=== PATIENT | female | born 1955 | race African-American/Black ===

== ENCOUNTER 2016-12-31 16:30 | Emergency (ER) | payer OTHER ==
[~2016-12-31 16:30] MED LIST: ACYC400T PO; ALPH0.15 EACH EYE; AMLO5 PO; ESZO2 PO; HYDR2.5%T PR; LATA0.00 EACH EYE; MECL12.574 PO; NITR.4 SL; TIMO0.5S29 EACH EYE
[2016-12-31 16:32] VITALS: BP 168/80; PULSE 68; RESP 28; TEMP 98.2; O2SAT 100
[2016-12-31] MEDS ORDERED: ACYC400T PO (16:50)
[2016-12-31] MEDS ORDERED: AMLO5TAB2 PO (16:50)
[2016-12-31] MEDS ORDERED: LATA0.002 EACH EYE (16:50)
[2016-12-31] MEDS ORDERED: NITR0.4S SL (16:50)
[2016-12-31] MEDS ORDERED: ESZO1TAB PO (16:50)
[2016-12-31] MEDS ORDERED: MECL12.574 PO (16:50)
[2016-12-31] MEDS ORDERED: TIMO0.5S30 EACH EYE (16:50)
[2016-12-31] MEDS ORDERED: BRIM.15%O EACH EYE (16:50)
[2016-12-31] MEDS ORDERED: SODIUM CHLORIDE 0.9% FLUSH 10 ML FLUSH IVF PRN (17:00)
[2016-12-31] MEDS ORDERED: cloNIDine HCL 0.2 MG TAB PO ONE (17:00)
--- NOTE | 2016-12-31 17:01 | PD ---
HPI Chief Complaint: Cardiac Complaint Time Seen by Provider: 16:45 Travel History International Travel<30 days: No Contact w/Intl Traveler<30days: No Traveled to known affect area: No History of Present Illness HPI The patient was seen and examined in the presence of the nurse. She complains of chest pain. Location is upper sternum. Feels like a pressure. She's had this pain on and off for over a year. She's been here several times for it. She had a clean catheterization 14 months ago. Severity is moderate. No alleviating factors. Duration of the spell 2 days PFSH Past Medical History Anemia: Yes Arthritis: Yes (osterarthritis) Asthma: Yes Autoimmune Disease: No Blood Disorders: No Anxiety: Yes Depression: Yes Heart Rhythm Problems: Yes (MURMUR) Cancer: No Cardiac Catheterization: No Cardiovascular Problems: Yes (angina) High Cholesterol: No Chest Pain: Yes Congestive Heart Failure: No COPD: No Cerebrovascular Accident: No Diabetes: No Diminished Hearing: No Endocrine: No Gastrointestinal Disorders: Yes (CHOLECYSTITIS) GERD: Yes Genitourinary: No Hiatal Hernia: No Hypertension: Yes Immune Disorder: No Implanted Vascular Access Dvce: No Musculoskeletal: Yes Neurologic: Yes Psychiatric: Yes Reproductive: Yes Respiratory: Yes Immunizations Current: Yes Migraines: Yes Pancreatitis: Yes (1999) Seizures: No Sleep Apnea: No Thyroid Disease: No Ulcer: Yes Tetanus Vaccination: < 5 Years Influenza Vaccination: Yes Menopausal: Yes : 4 Para: 2 Miscarriage: 0 : 2 Past Surgical History Abdominal Surgery: Yes (hernia repair) Body Medical Devices: DENIES Cardiac Surgery: No Section: Yes Coronary Artery Bypass Graft: No Ear Surgery: No Endocrine Surgery: No Eye Surgery: No Genitourinary Surgery: No Gynecologic Surgery: Yes (partial hysterectomy, c section) Hysterectomy: Yes Neurologic Surgery: No Oral Surgery: No Thoracic Surgery: No Other Surgery: Yes (BENIGN TUMOR REMOVED FROM BREAST) Family History Family Myocardial Infarction: Yes (MOTHER & FATHER) Social History Alcohol Use: No Tobacco Use: No Substance Use: No Allergies-Medications (Allergen,Severity, Reaction): Coded Allergies: Naproxen (Verified Allergy, Severe, NAUSEA, 07/06/16) Reported Meds & Prescriptions Reported Meds & Active Scripts Active Reported Meclizine (Meclizine HCl) 12.5 Mg Tab 12.5 Mg PO DIRECTED PRN Timolol Opth Drops 0.5 % Soln 1 Drop EACH EYE BID Latanoprost Opth Drops (Latanoprost) 0.005% Drops 1 Drop EACH EYE HS Refrigerate until opened. Alphagan P Opth Drops (Brimonidine Tartrate) Unknown Strength Soln Unknown Dose EACH EYE TID Lunesta (Eszopiclone) 2 Mg Tab 2 Mg PO HS PRN Acyclovir 400 Mg Tab 400 Mg PO BID Amlodipine (Amlodipine Besylate) 5 Mg Tab 5 Mg PO DAILY Nitrostat SL (Nitroglycerin) 0.4 Mg Subl 0.4 Mg SL DIRECTED PRN 1 tablet under the tongue as needed for chest pain. Repeat every 5 minutes for a total of 3 DOSES or call 911 if NO relief. Review of Systems General / Constitutional: No: Fever Eyes: No: Visual changes HENT: No: Headaches Cardiovascular: Positive: Chest Pain or Discomfort Respiratory: No: Shortness of Breath Gastrointestinal: No: Abdominal Pain Genitourinary: No: Dysuria Musculoskeletal: No: Pain Skin: No Rash Neurologic: No: Weakness Psychiatric: No: Depression Endocrine: No: Polydipsia Hematologic/Lymphatic: No: Easy Bruising Physical Exam Narrative GENERAL: Well-nourished, well-developed patient in no apparent distress. SKIN: Warm and dry. HEAD: Atraumatic. Normocephalic. EYES: Pupils equal and round. No scleral icterus. No injection or drainage. ENT: No nasal bleeding or discharge. Mucous membranes pink and moist. NECK: Trachea midline. No JVD. CARDIOVASCULAR: Regular rate and rhythm. No murmur appreciated. RESPIRATORY: No accessory muscle use. Clear to auscultation. Breath sounds equal bilaterally. GASTROINTESTINAL: Abdomen soft, non-tender, nondistended. Hepatic and splenic margins not palpable. MUSCULOSKELETAL: No obvious deformities. No clubbing. No cyanosis. No edema. NEUROLOGICAL: Awake and alert. No obvious cranial nerve deficits. Motor grossly within normal limits. Normal speech. PSYCHIATRIC: Appropriate mood and affect; insight and judgment normal. Data Data Last Documented VS Vital Signs Date Time Temp Pulse Resp B/P Pulse Ox O2 Delivery O2 Flow Rate FiO2 12/31/16 18:30 64 18 116/66 100 Room Air 12/31/16 16:32 98.2 Orders Basic Metabolic Panel (Bmp) (12/31/16 16:53) Ckmb (Isoenzyme) Profile (12/31/16 16:53) Complete Blood Count With Diff (12/31/16 16:53) Troponin I (12/31/16 16:53) Ecg Monitoring (12/31/16 16:53) Iv Access Insert/Monitor (12/31/16 16:53) Oximetry (12/31/16 16:53) Sodium Chloride 0.9% Flush (Ns Flush) (12/31/16 17:00) Clonidine (Catapres) (12/31/16 17:00) CKMB (12/31/16 17:03) CKMB% (12/31/16 17:03) Labs Laboratory Tests Test 12/31/16 17:03 White Blood Count 5.9 TH/MM3 Red Blood Count 3.73 MIL/MM3 Hemoglobin 11.7 GM/DL Hematocrit 34.0 % Mean Corpuscular Volume 91.2 FL Mean Corpuscular Hemoglobin 31.5 PG Mean Corpuscular Hemoglobin 34.6 % Concent Red Cell Distribution Width 13.8 % Platelet Count 291 TH/MM3 Mean Platelet Volume 8.0 FL Neutrophils (%) (Auto) 40.5 % Lymphocytes (%) (Auto) 46.0 % Monocytes (%) (Auto) 9.5 % Eosinophils (%) (Auto) 2.7 % Basophils (%) (Auto) 1.3 % Neutrophils # (Auto) 2.4 TH/MM3 Lymphocytes # (Auto) 2.7 TH/MM3 Monocytes # (Auto) 0.6 TH/MM3 Eosinophils # (Auto) 0.2 TH/MM3 Basophils # (Auto) 0.1 TH/MM3 CBC Comment DIFF FINAL Differential Comment Sodium Level 142 MEQ/L Potassium Level 3.3 MEQ/L Chloride Level 109 MEQ/L Carbon Dioxide Level 25.3 MEQ/L Anion Gap 8 MEQ/L Blood Urea Nitrogen 14 MG/DL Creatinine 1.39 MG/DL Estimat Glomerular Filtration 46 ML/MIN Rate Random Glucose 95 MG/DL Calcium Level 9.6 MG/DL Total Creatine Kinase 152 U/L Creatine Kinase MB LESS THAN 0.5 NG/ML Troponin I 0.02 NG/ML MDM Medical Decision Making Medical Screen Exam Complete: Yes Emergency Medical Condition: Yes Medical Record Reviewed: Yes Differential Diagnosis Differential diagnosis includes KS, angina, pericarditis, pleurisy, GERD, anxiety. Narrative Course I have reviewed the patient's electronic medical record. I saw this patient in June 2016 for the same complaint. I reviewed her heart catheterization from October 2015 which showed no coronary artery disease IV placed I reviewed the EKG which is normal Extended cardiac monitoring shows sinus rhythm without ectopy CBC is normal Metabolic profile is normal CK is normal Troponin is normal I gave her dose of clonidine for accelerated hypertension. That was thought to be the cause of her chest pain by film sound engineer who did the catheterization. On recheck blood pressure 116/66 Workup here is negative Had recent negative catheterization This is a chronic problem going on for least a year I don't feel she requires inpatient stay at this time. She should discuss it with her physician and I have advised her to call Monday and do that Diagnosis Primary Impression: Non-cardiac chest pain Additional Impression: Chronic chest pain Additional Instructions: The patient was advised to follow up with their physician and return if they worsen. Med/Other Pt SpecificInfo: Other Disposition: DISCHARGE HOME Condition: Stable Arnulfo De Anda MD Dec 31, 2016 17:01
[2016-12-31 17:12] LABS: AUTOMATED NEUTROPHIL # 2.4 TH/MM3 (1.8-7.7); BASOPHIL # 0.1 TH/MM3 (0-0.2); BASOPHIL % 1.3 % (0.0-2.0); EOSINOPHIL # 0.2 TH/MM3 (0-0.4); EOSINOPHIL % 2.7 % (0.0-4.0); HEMO FLAGS DIFF FINAL; LYMPHOCYTE # 2.7 TH/MM3 (1.0-4.8); MEAN CELL VOLUME 91.2 FL (80.0-100.0); MEAN CORPUSCULAR HEMOGLOBIN 31.5 PG (27.0-34.0); MEAN CORPUSCULAR HGB CONC 34.6 % (32.0-36.0); MONO % 9.5 % (0.0-8.0); NEUT % 40.5 % (16.0-70.0); PLATELET COUNT 291 TH/MM3 (150-450); RED BLOOD COUNT 3.73 MIL/MM3 (4.00-5.30); RED CELL DISTRIBUTION WIDTH 13.8 % (11.6-17.2); WHITE BLOOD COUNT 5.9 TH/MM3 (4.0-11.0)
[2016-12-31 17:19] VITALS: RESP 16; O2SAT 97
[2016-12-31 17:30] VITALS: BP 154/77; PULSE 74; RESP 16; O2SAT 100
[2016-12-31 17:40] LABS: ANION GAP 8 MEQ/L (5-15); BICARBONATE 25.3 MEQ/L (21.0-32.0); BLOOD UREA NITROGEN 14 MG/DL (7-18); CHLORIDE 109 MEQ/L (98-107); GLOMERULAR FILTRATION RATE 46 ML/MIN (>89); POTASSIUM 3.3 MEQ/L (3.5-5.1); SODIUM (NA) 142 MEQ/L (136-145)
[2016-12-31 17:43] LABS: CREATINE KINASE 152 U/L (26-192)
[2016-12-31 17:56] LABS: CKMB LESS THAN 0.5 NG/ML (0.5-3.6)
[2016-12-31 18:30] VITALS: BP 116/66; PULSE 64; RESP 18; O2SAT 100
--- NOTE | 2017-01-01 15:01 | EKG ---
Date Performed: 12/31/2016 Time Performed: 16:47:42 PTAGE: 61 years EKG: Sinus rhythm Since previous tracing, no significant change noted NORMAL ECG PREVIOUS TRACING : 07/06/2016 14.24 DOCTOR: Yann Kim Interpretating Date/Time 01/01/2017 15:01:51
== END 2016-12-31 19:21 | disposition home or self-care (01) ==
LOC: NEPE 16:30
DX: R07.89 Other chest pain (principal); G89.29 Other chronic pain; I10 Essential (primary) hypertension; Z86.2 Personal history of diseases of the blood and blood-forming organs and certain disorders involving the immune mechanism; Z87.39 Personal history of other diseases of the musculoskeletal system and connective tissue; Z87.09 Personal history of other diseases of the respiratory system; Z86.59 Personal history of other mental and behavioral disorders; Z86.79 Personal history of other diseases of the circulatory system; Z87.19 Personal history of other diseases of the digestive system; Z86.69 Personal history of other diseases of the nervous system and sense organs
CPT/HCPCS: 80048; 82550; 82552; 84484; 85025; 93005; 99284

== ENCOUNTER 2017-07-20 14:36 | Emergency (ER) | payer SELFPAY ==
[~2017-07-20] VITALS: Ht 167.6 cm; Wt 55.0 kg
[~2017-07-20 14:36] MED LIST changes: -ALPH0.15 EACH EYE; -AMLO5 PO; +AMLO5TAB2 PO; +BRIM.15%O EACH EYE; +ESZO1TAB PO; -ESZO2 PO; -HYDR2.5%T PR; -LATA0.00 EACH EYE; +LATA0.002 EACH EYE; -NITR.4 SL; +NITR0.4S SL; -TIMO0.5S29 EACH EYE; +TIMO0.5S30 EACH EYE
[2017-07-20 14:47] VITALS: BP 143/66; PULSE 56; RESP 17; TEMP 97.8; O2SAT 100
[2017-07-20] MEDS ORDERED: ASPIRIN 81 MG CHEW TAB PO ONE (15:15)
[2017-07-20] MEDS ORDERED: SODIUM CHLORIDE 0.9% FLUSH 10 ML FLUSH IVF PRN (15:15)
--- NOTE | 2017-07-20 15:16 | PD ---
HPI Chief Complaint: Chest PAin Time Seen by Provider: 14:57 Travel History International Travel<30 days: No Contact w/Intl Traveler<30days: No History of Present Illness HPI 61-year-old female tearful for chest pain. She states that the chest pain started 2 hours ago after an episode of crying and complaining of being "nervous wreck". She describes her pain as midsternal heavy, aching and sharp and rated 9 out of 10 radiating to her right shoulder and right neck. States her chest pain worsens with inspiration nothing else relieves her discomfort. She has not taken aspirin today. She states that she took 2 Ambien just to "fall asleep". She tells me that she does not want to wake up after taking these Ambien. She denies any chronic cardiac or pulmonary additions. She denies recent travel, surgery, history of cancer, shortness of breath, back pain, nausea, vomiting, diarrhea, abdominal pain, leg pain, illicit drug use. She states that she has had an episode like this before and it was just before a suicide attempt. PFSH Past Medical History Anemia: Yes Arthritis: Yes (osterarthritis) Asthma: Yes Autoimmune Disease: No Blood Disorders: No Anxiety: Yes Depression: Yes Heart Rhythm Problems: Yes (MURMUR) Cancer: No Cardiac Catheterization: No Cardiovascular Problems: Yes (angina) High Cholesterol: No Chest Pain: Yes Congestive Heart Failure: No COPD: No Cerebrovascular Accident: No Diabetes: No Diminished Hearing: No Endocrine: No Gastrointestinal Disorders: Yes (CHOLECYSTITIS) GERD: Yes Genitourinary: No Hiatal Hernia: No Hypertension: Yes Immune Disorder: No Implanted Vascular Access Dvce: No Musculoskeletal: Yes Neurologic: Yes Psychiatric: Yes Reproductive: Yes Respiratory: Yes Immunizations Current: Yes Migraines: Yes Pancreatitis: Yes (1999) Seizures: No Sleep Apnea: No Thyroid Disease: No Ulcer: Yes Menopausal: Yes : 4 Para: 2 Miscarriage: 0 : 2 Past Surgical History Abdominal Surgery: Yes (hernia repair) Body Medical Devices: DENIES Cardiac Surgery: No Section: Yes Coronary Artery Bypass Graft: No Ear Surgery: No Endocrine Surgery: No Eye Surgery: No Genitourinary Surgery: No Gynecologic Surgery: Yes (partial hysterectomy, c section) Hysterectomy: Yes Neurologic Surgery: No Oral Surgery: No Thoracic Surgery: No Other Surgery: Yes (BENIGN TUMOR REMOVED FROM BREAST) Social History Alcohol Use: No Tobacco Use: No Substance Use: No Allergies-Medications (Allergen,Severity, Reaction): Coded Allergies: naproxen (Verified Adverse Reaction, Severe, NAUSEA, 07/20/17) Reported Meds & Prescriptions Reported Meds & Active Scripts Active Reported Meclizine (Meclizine HCl) 12.5 Mg Tab 12.5 Mg PO DIRECTED PRN Timolol Opth Drops 0.5 % Soln 1 Drop EACH EYE BID Latanoprost Opth Drops (Latanoprost) 0.005% Drops 1 Drop EACH EYE HS Refrigerate until opened. Alphagan P Opth Drops (Brimonidine Tartrate) Unknown Strength Soln 1 Drop EACH EYE TID Acyclovir 400 Mg Tab 400 Mg PO BID Amlodipine (Amlodipine Besylate) 5 Mg Tab 5 Mg PO DAILY Nitrostat SL (Nitroglycerin) 0.4 Mg Subl 0.4 Mg SL DIRECTED PRN 1 tablet under the tongue as needed for chest pain. Repeat every 5 minutes for a total of 3 DOSES or call 911 if NO relief. Review of Systems Except as stated in HPI: all other systems reviewed are Neg Cardiovascular: Positive: Chest Pain or Discomfort Psychiatric: Positive: Depression, Suicidal Ideations Physical Exam Narrative GENERAL: Well-developed well-nourished in mild distress, tearful SKIN: Focused skin assessment warm/dry. HEAD: Atraumatic. Normocephalic. EYES: Pupils equal and round. No scleral icterus. No injection or drainage. ENT: No nasal bleeding or discharge. Mucous membranes pink and moist. NECK: Trachea midline. No JVD. CARDIOVASCULAR: Regular rate and rhythm. No murmur appreciated. RESPIRATORY: No accessory muscle use. Clear to auscultation. Breath sounds equal bilaterally. GASTROINTESTINAL: Abdomen soft, non-tender, nondistended. Hepatic and splenic margins not palpable. MUSCULOSKELETAL: No obvious deformities. No clubbing. No cyanosis. No edema. Negative Homans sign bilaterally lower extremities NEUROLOGICAL: Awake and alert. No obvious cranial nerve deficits. Motor grossly within normal limits. Normal speech. PSYCHIATRIC: Tearful, depressed appearing Data Data Last Documented VS Vital Signs Date Time Temp Pulse Resp B/P (MAP) Pulse Ox O2 Delivery O2 Flow Rate FiO2 07/21/17 15:14 98.7 56 18 140/66 (90) 07/21/17 06:00 97 Room Air Orders Orders Electrocardiogram (07/20/17 ) Basic Metabolic Panel (Bmp) (07/20/17 15:12) B-Type Natriuretic Peptide (07/20/17 15:12) Ckmb (Isoenzyme) Profile (07/20/17 15:12) Complete Blood Count With Diff (07/20/17 15:12) Magnesium (Mg) (07/20/17 15:12) Prothrombin Time / Inr (Pt) (07/20/17 15:12) Act Partial Throm Time (Ptt) (07/20/17 15:12) Troponin I (07/20/17 15:12) Chest, Single Ap (07/20/17 15:12) Ecg Monitoring (07/20/17 15:12) Bilateral Bp Monitoring (07/20/17 15:12) Iv Access Insert/Monitor (07/20/17 15:12) Oximetry (07/20/17 15:12) Oxygen Administration (07/20/17 15:12) Aspirin Chew (Aspirin Chew) (07/20/17 15:15) Sodium Chloride 0.9% Flush (Ns Flush) (07/20/17 15:15) Urinalysis - C+S If Indicated (07/20/17 15:35) Drug Screen, Random Urine (07/20/17 15:35) Psych Screen (07/20/17 18:21) Diet Regular Basic (07/21/17 Breakfast) Diet Regular Basic (07/21/17 Lunch) Ed Discharge Order (07/21/17 14:50) Labs Laboratory Tests Test 07/20/17 15:20 07/20/17 16:40 07/20/17 17:00 White Blood Count 4.5 TH/MM3 Red Blood Count 4.03 MIL/MM3 Hemoglobin 12.8 GM/DL Hematocrit 38.4 % Mean Corpuscular Volume 95.2 FL Mean Corpuscular Hemoglobin 31.8 PG Mean Corpuscular Hemoglobin Concent 33.4 % Red Cell Distribution Width 14.4 % Platelet Count 285 TH/MM3 Mean Platelet Volume 7.8 FL Neutrophils (%) (Auto) 31.3 % Lymphocytes (%) (Auto) 52.5 % Monocytes (%) (Auto) 11.2 % Eosinophils (%) (Auto) 3.7 % Basophils (%) (Auto) 1.3 % Neutrophils # (Auto) 1.4 TH/MM3 Lymphocytes # (Auto) 2.4 TH/MM3 Monocytes # (Auto) 0.5 TH/MM3 Eosinophils # (Auto) 0.2 TH/MM3 Basophils # (Auto) 0.1 TH/MM3 CBC Comment DIFF FINAL Differential Comment Blood Urea Nitrogen 11 MG/DL Creatinine 1.05 MG/DL Random Glucose 76 MG/DL Calcium Level 9.6 MG/DL Magnesium Level 2.3 MG/DL Sodium Level 140 MEQ/L Potassium Level 4.1 MEQ/L Chloride Level 110 MEQ/L Carbon Dioxide Level 23.2 MEQ/L Anion Gap 7 MEQ/L Estimat Glomerular Filtration Rate 64 ML/MIN Total Creatine Kinase 99 U/L Troponin I 0.02 NG/ML B-Type Natriuretic Peptide 11 PG/ML Urine Color LIGHT-YELLOW Urine Turbidity CLEAR Urine pH 7.0 Urine Specific [place] 1.009 Urine Protein NEG mg/dL Urine Glucose (UA) NEG mg/dL Urine Ketones 10 mg/dL Urine Occult Blood NEG Urine Nitrite NEG Urine Bilirubin NEG Urine Urobilinogen LESS THAN 2.0 MG/DL Urine Leukocyte Esterase NEG Urine RBC 1 /hpf Urine WBC 1 /hpf Urine Squamous Epithelial Cells <1 /hpf Urine Mucus FEW /lpf Microscopic Urinalysis Comment CULT NOT INDICATED Urine Opiates Screen NEG Urine Barbiturates Screen NEG Urine Amphetamines Screen NEG Urine Benzodiazepines Screen NEG Urine Cocaine Screen NEG Urine Cannabinoids Screen NEG Prothrombin Time 10.9 SEC Prothromb Time International Ratio 1.0 RATIO Activated Partial Thromboplast Time 27.5 SEC MDM Medical Decision Making Medical Screen Exam Complete: Yes Emergency Medical Condition: Yes Differential Diagnosis Acute anxiety versus STEMI versus non-STEMI versus PE versus suicidal ideations Narrative Course 61-year-old female presents to the emergency department for chest pain for 2 hours. Just prior to this chest pain, she states she was was tearful and a ' nervous wreck'. States she took 2 10mg Ambien 'to go to sleep and not wake up' . States that she has had a suicide attempt prior via overdose but could not tell me when. Cardiac catheter from 2016 without obstruction. EKG without acute changes. Troponin neg. UDS negative Imaging without acute process Once medically cleared, will refer to Psych. Vitals remained stable during ED visit. Mental health screening discussed with the patient. Psychiatric screen ordered. Diagnosis Primary Impression: Anxiety and depression Additional Impression: Suicidal ideations Condition: Stable Justice,Nedra PA Jul 20, 2017 15:16
[2017-07-20] MEDS ORDERED: AMBI10TA PO (15:33)
[2017-07-20 15:40] VITALS: BP_SYST 123; BP_SYST 139; BP_DIAS 69; BP_DIAS 80; PULSE 56; RESP 17; O2SAT 100
--- NOTE | 2017-07-20 15:47 | RADRPT ---
EXAM DATE/TIME: 07/20/2017 15:11 [facility] COMPARISON: CHEST SINGLE AP, April 21, 2016, 13:49. INDICATIONS : Chest pain. MEDICAL HISTORY : None. SURGICAL HISTORY : None. ENCOUNTER: Initial ACUITY: 1 day PAIN SCORE: Non-responsive. LOCATION: middle chest. FINDINGS: A single view of the chest demonstrates the lungs to be symmetrically aerated without evidence of mas s, infiltrate or effusion. The cardiomediastinal contours are unremarkable. Osseous structures are intact. CONCLUSION: No acute disease. Bryant Rivas MD on July 20, 2017 at 15:46 Board Certified Radiologist. This report was verified electronically.
[2017-07-20 16:31] LABS: AUTOMATED NEUTROPHIL # 1.4 TH/MM3 (1.8-7.7); BASOPHIL # 0.1 TH/MM3 (0-0.2); BASOPHIL % 1.3 % (0.0-2.0); EOSINOPHIL # 0.2 TH/MM3 (0-0.4); EOSINOPHIL % 3.7 % (0.0-4.0); HEMATOCRIT 38.4 % (35.0-46.0); HEMO FLAGS DIFF FINAL; LYMPH % 52.5 % (9.0-44.0); LYMPHOCYTE # 2.4 TH/MM3 (1.0-4.8); MEAN CELL VOLUME 95.2 FL (80.0-100.0); MEAN CORPUSCULAR HEMOGLOBIN 31.8 PG (27.0-34.0); MEAN CORPUSCULAR HGB CONC 33.4 % (32.0-36.0); MONO % 11.2 % (0.0-8.0); NEUT % 31.3 % (16.0-70.0); PLATELET COUNT 285 TH/MM3 (150-450); RED BLOOD COUNT 4.03 MIL/MM3 (4.00-5.30); RED CELL DISTRIBUTION WIDTH 14.4 % (11.6-17.2); WHITE BLOOD COUNT 4.5 TH/MM3 (4.0-11.0)
[2017-07-20 16:48] LABS: BICARBONATE 23.2 MEQ/L (21.0-32.0); MAGNESIUM 2.3 MG/DL (1.5-2.5); POTASSIUM 4.1 MEQ/L (3.5-5.1)
[2017-07-20 17:06] LABS: BLOOD, URINE NEG (NEG); COMMENT (UR) CULT NOT INDICATED; CULTURE IF INDICATED CULT NOT INDICATED; GLUCOSE,URINE NEG (NEG); KETONE, URINE 10 mg/dL (NEG); MUCUS URINE FEW /lpf (OCC); NITRITE,URINE NEG (NEG); SQUAMOUS EPITHELIAL CELL URINE <1 /hpf (0-5); URINE COLOR LIGHT-YELLOW (YELLW/STRAW)
[2017-07-20 17:13] VITALS: BP 153/74; PULSE 52; RESP 16; TEMP 97.9; O2SAT 100
[2017-07-20 17:34] LABS: APTT (PATIENT) 27.5 SEC (24.3-30.1); PROTHROMBIN TIME - PATIENT 10.9 SEC (9.8-11.6)
--- NOTE | 2017-07-20 18:46 | EKG ---
Date Performed: 07/20/2017 Time Performed: 14:51:14 PTAGE: 61 years EKG: SINUS BRADYCARDIA BORDERLINE ECG PREVIOUS TRACING : 12/31/2016 16.47 No significant change from previous tracing noted. DOCTOR: Lyle Solis Interpretating Date/Time 07/20/2017 18:44:35
[2017-07-20 19:05] VITALS: BP 139/79; PULSE 63; RESP 14; O2SAT 100
[2017-07-20 22:18] VITALS: BP 123/62; PULSE 44; RESP 15; O2SAT 97
[2017-07-21 02:13] VITALS: BP 133/54; PULSE 44; RESP 19; O2SAT 97
[2017-07-21 06:00] VITALS: BP 147/60; PULSE 66; RESP 18; O2SAT 97
--- NOTE | 2017-07-21 14:45 | PD ---
History of Present Illness Chief Complaint: Chest Pain Time Seen by Provider: 14:00 Travel History International Travel<30 Days: No Contact w/Intl Traveler<30days: No Known affected area: No Legal Status Legal Status: Voluntary History of Present Illness: History of Present Illness HPI 61-year-old female with remote history of depression and anxiety who presents to ED with reports of chest pain. She states that the chest pain started 2 hours ago after an episode of crying and complaining of being "nervous wreck". She states that she took 2 Ambien just to "fall asleep ". She reported to ED provider that she " did not want to wake up after taking these Ambien" . She states that she has had an episode like this before and it was during a suicide attempt. A psychiatric evaluation was ordered. EMR is reviewed. No previous contact with [facility] [place]. The patient has been monitored in secure environment and she has not presented any behavioral dysregulation and no suicidality She is alert and oriented . Speech is of low tone. Somatically focused. States she has persistent pain for which she takes pain medication. Also reports she has been taking Ambien for approximately one year. No recent stressors reported. She does state that she had been thinking about previous trauma and that she wanted to go to sleep. She denies that this was a suicidal attempt but rather that she wanted to sleep. She does report that she has had suicdal thoughts intermittently in the past. Denies current suicdal ideation, intent or plan. No psychosis and no ibrahima. She is interested in beginning counseling services. [facility] Past Medical History Anemia: Yes Arthritis: Yes (osterarthritis) Asthma: Yes Autoimmune Disease: No Blood Disorders: No Anxiety: Yes Depression: Yes Heart Rhythm Problems: Yes (MURMUR) Cancer: No Cardiac Catheterization: No Cardiovascular Problems: Yes (HBP) High Cholesterol: No Chest Pain: Yes Congestive Heart Failure: No COPD: No Cerebrovascular Accident: No Diabetes: No Diminished Hearing: No Endocrine: No Gastrointestinal Disorders: Yes (CHOLECYSTITIS) GERD: Yes Genitourinary: No Hiatal Hernia: No Hypertension: Yes Immune Disorder: No Implanted Vascular Access Dvce: No Musculoskeletal: Yes Neurologic: Yes Psychiatric: Yes Reproductive: Yes Respiratory: Yes Immunizations Current: Yes Migraines: Yes Pancreatitis: Yes (1999) Seizures: No Sleep Apnea: No Thyroid Disease: No Ulcer: Yes Tetanus Vaccination: < 5 Years Influenza Vaccination: Yes ?: Not Menopausal: Yes : 4 Para: 2 Miscarriage: 0 : 2 Past Surgical History Abdominal Surgery: Yes (hernia repair) Body Medical Devices: DENIES Cardiac Surgery: No Section: Yes Coronary Artery Bypass Graft: No Ear Surgery: No Endocrine Surgery: No Eye Surgery: No Genitourinary Surgery: No Gynecologic Surgery: Yes (partial hysterectomy, c section) Hysterectomy: Yes Neurologic Surgery: No Oral Surgery: No Thoracic Surgery: No Other Surgery: Yes (BENIGN TUMOR REMOVED FROM BREAST) Psychiatric History Psychiatric History Hx Psychiatric Treatment: Patient with hx of depression and anxiety. Per patient last psychiatric visit was in the 1970s after her 2nd marriage ended. History of Inpatient Treatment: No Guns or firearms in home: No Social History female. Lives by herself in her own home. Has 2 adult daughters. One daughter lives locally and assists her with transportation. She attends scientology weekly. Hx Alcohol Use: No Hx Tobacco Use: No Hx Substance Use: No Other Substances Used: past alcohol and marijuana user Hx of Substance Use Treatment: No Family Psychiatric History Negative Allergies-Medications (Allergen,Severity, Reaction): Coded Allergies: naproxen (Verified Adverse Reaction, Severe, NAUSEA, 07/20/17) Reported Meds & Prescriptions Reported Meds & Active Scripts Active Reported Meclizine (Meclizine HCl) 12.5 Mg Tab 12.5 Mg PO DIRECTED PRN Timolol Opth Drops 0.5 % Soln 1 Drop EACH EYE BID Latanoprost Opth Drops (Latanoprost) 0.005% Drops 1 Drop EACH EYE HS Refrigerate until opened. Alphagan P Opth Drops (Brimonidine Tartrate) Unknown Strength Soln 1 Drop EACH EYE TID Acyclovir 400 Mg Tab 400 Mg PO BID Amlodipine (Amlodipine Besylate) 5 Mg Tab 5 Mg PO DAILY Nitrostat SL (Nitroglycerin) 0.4 Mg Subl 0.4 Mg SL DIRECTED PRN 1 tablet under the tongue as needed for chest pain. Repeat every 5 minutes for a total of 3 DOSES or call 911 if NO relief. Review of Systems Constitutional: COMPLAINS OF: Fatigue Cardiovascular: COMPLAINS OF: Chest pain Musculoskeletal: COMPLAINS OF: Muscle aches Neurologic: COMPLAINS OF: Poor Balance Mental Status Examination Appearance: Disheveled Consciousness: Alert Orientation: x4 Motor Activity: Normal gait Speech: Unremarkable, Slow Language: Adequate Fund of Knowledge: Adequate Attention and Concentration: Adequate Memory: Unremarkable Mood: Sad Affect: Appropriate Thought Process & Associations: Intact Thought Content: Appropriate Hallucination Type: None Delusion Type: None Suicidal Ideation: No Suicidal Plan: No Suicidal Intention: No Homicidal Ideation: No Homicidal Plan: No Homicidal Intention: No Insight: Fair Judgment: Adequate MDM Medical Decision Making Medical Record Reviewed: Yes Assessment/Plan 61-year-old female with remote history of depression and anxiety who presents to ED with reports of chest pain. She states that the chest pain started 2 hours ago after an episode of crying and complaining of being "nervous wreck". She states that she took 2 Ambien just to "fall asleep ". She reported to ED provider that she " did not want to wake up after taking these Ambien". After being monitored patient did not present any behavioral dysregulation and no suicidality. She denies current suicdal ideation and admits now to having taken the Ambien to go to sleep. She is not suicidal or homicidal. She has adequate protective factors including her thanh. She is wanting to initiate counseling to help her deal with past history of trauma. She will be provided with area resources. Support provided. Cleared psychiatrically for discharge. Orders Orders Electrocardiogram (07/20/17 ) Basic Metabolic Panel (Bmp) (07/20/17 15:12) B-Type Natriuretic Peptide (07/20/17 15:12) Ckmb (Isoenzyme) Profile (07/20/17 15:12) Complete Blood Count With Diff (07/20/17 15:12) Magnesium (Mg) (07/20/17 15:12) Prothrombin Time / Inr (Pt) (07/20/17 15:12) Act Partial Throm Time (Ptt) (07/20/17 15:12) Troponin I (07/20/17 15:12) Chest, Single Ap (07/20/17 15:12) Ecg Monitoring (07/20/17 15:12) Bilateral Bp Monitoring (07/20/17 15:12) Iv Access Insert/Monitor (07/20/17 15:12) Oximetry (07/20/17 15:12) Oxygen Administration (07/20/17 15:12) Aspirin Chew (Aspirin Chew) (07/20/17 15:15) Sodium Chloride 0.9% Flush (Ns Flush) (07/20/17 15:15) Urinalysis - C+S If Indicated (07/20/17 15:35) Drug Screen, Random Urine (07/20/17 15:35) Psych Screen (07/20/17 18:21) Diet Regular Basic (07/21/17 Breakfast) Diet Regular Basic (07/21/17 Lunch) Results Vital Signs Date Time Temp Pulse Resp B/P (MAP) Pulse Ox O2 Delivery O2 Flow Rate FiO2 07/21/17 06:00 66 18 147/60 (89) 97 Room Air 07/21/17 02:13 44 19 133/54 (80) 97 Room Air 07/20/17 22:18 44 15 123/62 (82) 97 Room Air 07/20/17 19:05 63 14 139/79 (99) 100 Room Air 07/20/17 17:13 97.9 52 16 153/74 (100) 100 Room Air 07/20/17 15:40 100 Aerosol Mask 07/20/17 15:40 17 100 Room Air 07/20/17 15:40 56 17 123/69 (87) 100 Room Air 139/80 (99) 07/20/17 14:50 56 17 100 Room Air 07/20/17 14:47 97.8 56 17 143/66 (91) 100 Laboratory Tests Test 07/20/17 15:20 07/20/17 16:40 07/20/17 17:00 White Blood Count 4.5 Red Blood Count 4.03 Hemoglobin 12.8 Hematocrit 38.4 Mean Corpuscular Volume 95.2 Mean Corpuscular Hemoglobin 31.8 Mean Corpuscular Hemoglobin Concent 33.4 Red Cell Distribution Width 14.4 Platelet Count 285 Mean Platelet Volume 7.8 Neutrophils (%) (Auto) 31.3 Lymphocytes (%) (Auto) 52.5 Monocytes (%) (Auto) 11.2 Eosinophils (%) (Auto) 3.7 Basophils (%) (Auto) 1.3 Neutrophils # (Auto) 1.4 Lymphocytes # (Auto) 2.4 Monocytes # (Auto) 0.5 Eosinophils # (Auto) 0.2 Basophils # (Auto) 0.1 CBC Comment DIFF FINAL Differential Comment Blood Urea Nitrogen 11 Creatinine 1.05 Random Glucose 76 Calcium Level 9.6 Magnesium Level 2.3 Sodium Level 140 Potassium Level 4.1 Chloride Level 110 Carbon Dioxide Level 23.2 Anion Gap 7 Estimat Glomerular Filtration Rate 64 Total Creatine Kinase 99 Troponin I 0.02 B-Type Natriuretic Peptide 11 Urine Color LIGHT-YELLOW Urine Turbidity CLEAR Urine pH 7.0 Urine Specific [place] 1.009 Urine Protein NEG Urine Glucose (UA) NEG Urine Ketones 10 Urine Occult Blood NEG Urine Nitrite NEG Urine Bilirubin NEG Urine Urobilinogen LESS THAN 2.0 Urine Leukocyte Esterase NEG Urine RBC 1 Urine WBC 1 Urine Squamous Epithelial Cells <1 Urine Mucus FEW Microscopic Urinalysis Comment CULT NOT INDICATED Urine Opiates Screen NEG Urine Barbiturates Screen NEG Urine Amphetamines Screen NEG Urine Benzodiazepines Screen NEG Urine Cocaine Screen NEG Urine Cannabinoids Screen NEG Prothrombin Time 10.9 Prothromb Time International Ratio 1.0 Activated Partial Thromboplast Time 27.5 Diagnosis Primary Impression: Anxiety and depression Additional Impressions: Suicidal ideations Adjustment disorder Psychiatrically Cleared: Yes Med/ Other Pt Specific Info: No Change to Meds Disposition: 01 DISCHARGE HOME Condition: Stable Problem Qualifiers Additional Impressions: Adjustment disorder Qualified Codes: F43.21 - Adjustment disorder with depressed mood Sylvia Lewis Jul 21, 2017 14:45
--- NOTE | 2017-07-21 14:54 | PD ---
Physical Exam Time Seen by Provider: 14:52 MAGALI Zarate has evaluated patient, lifted Monson act and cleared patient for discharge. Data Data Last Documented VS Vital Signs Date Time Temp Pulse Resp B/P (MAP) Pulse Ox O2 Delivery O2 Flow Rate FiO2 07/21/17 06:00 66 18 147/60 (89) 97 Room Air 07/20/17 17:13 97.9 Orders Orders Electrocardiogram (07/20/17 ) Basic Metabolic Panel (Bmp) (07/20/17 15:12) B-Type Natriuretic Peptide (07/20/17 15:12) Ckmb (Isoenzyme) Profile (07/20/17 15:12) Complete Blood Count With Diff (07/20/17 15:12) Magnesium (Mg) (07/20/17 15:12) Prothrombin Time / Inr (Pt) (07/20/17 15:12) Act Partial Throm Time (Ptt) (07/20/17 15:12) Troponin I (07/20/17 15:12) Chest, Single Ap (07/20/17 15:12) Ecg Monitoring (07/20/17 15:12) Bilateral Bp Monitoring (07/20/17 15:12) Iv Access Insert/Monitor (07/20/17 15:12) Oximetry (07/20/17 15:12) Oxygen Administration (07/20/17 15:12) Aspirin Chew (Aspirin Chew) (07/20/17 15:15) Sodium Chloride 0.9% Flush (Ns Flush) (07/20/17 15:15) Urinalysis - C+S If Indicated (07/20/17 15:35) Drug Screen, Random Urine (07/20/17 15:35) Psych Screen (07/20/17 18:21) Diet Regular Basic (07/21/17 Breakfast) Diet Regular Basic (07/21/17 Lunch) Diet Regular Basic (07/21/17 Dinner) Ed Discharge Order (07/21/17 14:50) Labs Laboratory Tests Test 07/20/17 15:20 07/20/17 16:40 07/20/17 17:00 White Blood Count 4.5 TH/MM3 Red Blood Count 4.03 MIL/MM3 Hemoglobin 12.8 GM/DL Hematocrit 38.4 % Mean Corpuscular Volume 95.2 FL Mean Corpuscular Hemoglobin 31.8 PG Mean Corpuscular Hemoglobin Concent 33.4 % Red Cell Distribution Width 14.4 % Platelet Count 285 TH/MM3 Mean Platelet Volume 7.8 FL Neutrophils (%) (Auto) 31.3 % Lymphocytes (%) (Auto) 52.5 % Monocytes (%) (Auto) 11.2 % Eosinophils (%) (Auto) 3.7 % Basophils (%) (Auto) 1.3 % Neutrophils # (Auto) 1.4 TH/MM3 Lymphocytes # (Auto) 2.4 TH/MM3 Monocytes # (Auto) 0.5 TH/MM3 Eosinophils # (Auto) 0.2 TH/MM3 Basophils # (Auto) 0.1 TH/MM3 CBC Comment DIFF FINAL Differential Comment Blood Urea Nitrogen 11 MG/DL Creatinine 1.05 MG/DL Random Glucose 76 MG/DL Calcium Level 9.6 MG/DL Magnesium Level 2.3 MG/DL Sodium Level 140 MEQ/L Potassium Level 4.1 MEQ/L Chloride Level 110 MEQ/L Carbon Dioxide Level 23.2 MEQ/L Anion Gap 7 MEQ/L Estimat Glomerular Filtration Rate 64 ML/MIN Total Creatine Kinase 99 U/L Troponin I 0.02 NG/ML B-Type Natriuretic Peptide 11 PG/ML Urine Color LIGHT-YELLOW Urine Turbidity CLEAR Urine pH 7.0 Urine Specific [place] 1.009 Urine Protein NEG mg/dL Urine Glucose (UA) NEG mg/dL Urine Ketones 10 mg/dL Urine Occult Blood NEG Urine Nitrite NEG Urine Bilirubin NEG Urine Urobilinogen LESS THAN 2.0 MG/DL Urine Leukocyte Esterase NEG Urine RBC 1 /hpf Urine WBC 1 /hpf Urine Squamous Epithelial Cells <1 /hpf Urine Mucus FEW /lpf Microscopic Urinalysis Comment CULT NOT INDICATED Urine Opiates Screen NEG Urine Barbiturates Screen NEG Urine Amphetamines Screen NEG Urine Benzodiazepines Screen NEG Urine Cocaine Screen NEG Urine Cannabinoids Screen NEG Prothrombin Time 10.9 SEC Prothromb Time International Ratio 1.0 RATIO Activated Partial Thromboplast Time 27.5 SEC [facility] Supervised Visit with DIANA: No Narrative Course MAGALI Ward has evaluated patient, lifted Monson cameron and cleared the patient for discharge. Patient contracts safety. Denies suicidal or homicidal ideations. Patient will be provided community resource packet to [facility] for follow-up. Has friends and family for support. Patient is medically cleared for discharge. Diagnosis Primary Impression: Anxiety and depression Additional Impressions: Suicidal ideations Adjustment disorder Qualified Codes: F43.21 - Adjustment disorder with depressed mood Referrals: [facility] (Out patient) [facility] Primary Care Physician Psychiatrist Dest[facility] Patient Instructions: Anxiety (ED), Depression (ED), General Instructions, Suicide Prevention for Adults (ED) Additional Instruction: Contract safety to your self and others Follow-up with psychiatry Follow-up with primary care provider Follow-up with Colby Perez Return to the emergency department immediately with worsening of symptoms Med/Other Pt SpecificInfo: No Change to Meds, No Meds Exist/No RX given Disposition: 01 DISCHARGE HOME Condition: Stable Flaquita Jarrett OUTER DIAMETER GRINDER Jul 21, 2017 14:54
[2017-07-21 15:14] VITALS: BP 140/66; TEMP 98.7
== END 2017-07-21 15:26 | disposition home or self-care (01) ==
LOC: NEPC 14:36 → NEPJ 07-21 15:26
DX: R07.89 Other chest pain (principal); F41.9 Anxiety disorder, unspecified; F32.9 Major depressive disorder, single episode, unspecified; R45.851 Suicidal ideations; F43.21 Adjustment disorder with depressed mood; D64.9 Anemia, unspecified; J45.909 Unspecified asthma, uncomplicated; M19.90 Unspecified osteoarthritis, unspecified site; K21.9 Gastro-esophageal reflux disease without esophagitis; I10 Essential (primary) hypertension
CPT/HCPCS: 71010; 80048; 80307; 81001; 82550; 83735; 83880; 84484; 85025; 85610; 85730; 93005; 99284

== ENCOUNTER 2017-09-06 15:15 | Observation (INO) | payer SELFPAY ==
[~2017-09-06] VITALS: Ht 152.4 cm; Wt 55.0 kg
[~2017-09-06 15:15] MED LIST changes: +AMBI10TA PO; -ESZO1TAB PO
[2017-09-06 15:53] VITALS: BP 104/68; PULSE 70; RESP 18; TEMP 98.6; O2SAT 98
--- NOTE | 2017-09-06 16:49 | PD ---
HPI Chief Complaint: Syncope/Near-Syncope Time Seen by Provider: 16:54 Travel History International Travel<30 days: No Contact w/Intl Traveler<30days: No Traveled to known affect area: No History of Present Illness HPI 61-year-old female with PMH of GERD, HTN presents to the ED via EMS for evaluation of syncopal episode this AM. Patient states that she was standing at the microwave, developed tunnel vision and dizziness and fell to the floor. Questionable LOC. On presentation she endorses 7/10 pain in the right side of the head that radiates down the right arm. She states that she feels "groggy and weak." She denies chest pain, shortness of breath, nausea, vomiting, dysuria, hematuria. She has been ambulatory since the accident. Denies alcohol or drug use. PFSH Past Medical History Anemia: Yes Arthritis: Yes (osterarthritis) Asthma: Yes Autoimmune Disease: No Blood Disorders: No Anxiety: Yes Depression: Yes Heart Rhythm Problems: Yes (MURMUR) Cancer: No Cardiac Catheterization: No Cardiovascular Problems: Yes (HBP) High Cholesterol: No Chest Pain: Yes Congestive Heart Failure: No COPD: No Cerebrovascular Accident: No Diabetes: No Diminished Hearing: No Endocrine: No Gastrointestinal Disorders: Yes (CHOLECYSTITIS) GERD: Yes Genitourinary: No Hiatal Hernia: No Hypertension: Yes Immune Disorder: No Implanted Vascular Access Dvce: No Musculoskeletal: Yes Neurologic: Yes Psychiatric: Yes Reproductive: Yes Respiratory: Yes Immunizations Current: Yes Migraines: Yes Pancreatitis: Yes (1999) Seizures: No Sleep Apnea: No Thyroid Disease: No Ulcer: Yes Menopausal: Yes : 4 Para: 2 Miscarriage: 0 : 2 Past Surgical History Abdominal Surgery: Yes (hernia repair) Body Medical Devices: DENIES Cardiac Surgery: No Section: Yes Coronary Artery Bypass Graft: No Ear Surgery: No Endocrine Surgery: No Eye Surgery: No Genitourinary Surgery: No Gynecologic Surgery: Yes (partial hysterectomy, c section) Hysterectomy: Yes Neurologic Surgery: No Oral Surgery: No Thoracic Surgery: No Other Surgery: Yes (BENIGN TUMOR REMOVED FROM BREAST) Social History Alcohol Use: No Tobacco Use: No Substance Use: No Allergies-Medications (Allergen,Severity, Reaction): Coded Allergies: naproxen (Verified Adverse Reaction, Severe, NAUSEA, 09/06/17) Reported Meds & Prescriptions Reported Meds & Active Scripts Active Reported Alphagan P Opth Drops (Brimonidine Tartrate) Unknown Strength Soln 1 Drop EACH EYE TID Acyclovir 400 Mg Tab 400 Mg PO BID Amlodipine (Amlodipine Besylate) 5 Mg Tab 5 Mg PO DAILY Nitrostat SL (Nitroglycerin) 0.4 Mg Subl 0.4 Mg SL DIRECTED PRN 1 tablet under the tongue as needed for chest pain. Repeat every 5 minutes for a total of 3 DOSES or call 911 if NO relief. Review of Systems Except as stated in HPI: all other systems reviewed are Neg Physical Exam Narrative GENERAL: Well-nourished, well-developed female, sitting up on the stretcher in no acute distress. SKIN: Focused skin assessment warm/dry. HEAD: Normocephalic. EYES: No scleral icterus. No injection or drainage. NECK: Supple, trachea midline. No JVD or lymphadenopathy. Tender to palpation in the midline. Pain elicited with flexion. C-collar was applied. CARDIOVASCULAR: Regular rate and rhythm without murmurs, gallops, or rubs. RESPIRATORY: Breath sounds equal bilaterally. No accessory muscle use. GASTROINTESTINAL: Abdomen soft, non-tender, nondistended. RECTAL EXAM: No masses or tenderness, stool is brown. MUSCULOSKELETAL: No cyanosis, or edema. The wrist guard on right wrist. NEUROLOGICAL: Awake and alert. Cranial nerves II through XII intact. Motor and sensory grossly within normal limits. Mildly diminished it network engineer strength in the right upper extremity, likely secondary to carpal tunnel. Otherwise 4/ 5 muscle strength in all muscle groups. Normal speech. BACK: Nontender without obvious deformity. No CVA tenderness. Data Data Last Documented VS Vital Signs Date Time Temp Pulse Resp B/P (MAP) Pulse Ox O2 Delivery O2 Flow Rate FiO2 09/06/17 17:40 99.1 54 18 113/65 (81) 99 Room Air Orders Orders Electrocardiogram (09/06/17 16:49) Complete Blood Count With Diff (09/06/17 16:49) Comprehensive Metabolic Panel (09/06/17 16:49) Magnesium (Mg) (09/06/17 16:49) Troponin I (09/06/17 16:49) Act Partial Throm Time (Ptt) (09/06/17 16:49) Prothrombin Time / Inr (Pt) (09/06/17 16:49) Urinalysis - C+S If Indicated (09/06/17 16:49) Chest, Single Ap (09/06/17 16:49) Ct Brain W/O Iv Contrast(Rout) (09/06/17 16:49) Ecg Monitoring (09/06/17 16:49) Iv Access Insert/Monitor (09/06/17 16:49) Oximetry (09/06/17 16:49) Sodium Chloride 0.9% Flush (Ns Flush) (09/06/17 17:00) Sodium Chlor 0.9% 1000 Ml Inj (Ns 1000 M (09/06/17 17:00) Apply Cervical Collar (09/06/17 16:53) Ct Cerv Spine W/O Contrast (09/06/17 16:53) Aspirin (Aspirin) (09/06/17 19:15) Admit Order (Ed Use Only) (09/06/17 19:29) Labs Laboratory Tests Test 09/06/17 17:50 09/06/17 18:15 White Blood Count 6.7 TH/MM3 Red Blood Count 3.24 MIL/MM3 Hemoglobin 10.5 GM/DL Hematocrit 30.6 % Mean Corpuscular Volume 94.6 FL Mean Corpuscular Hemoglobin 32.6 PG Mean Corpuscular Hemoglobin Concent 34.5 % Red Cell Distribution Width 14.1 % Platelet Count 218 TH/MM3 Mean Platelet Volume 8.6 FL Neutrophils (%) (Auto) 64.6 % Lymphocytes (%) (Auto) 25.4 % Monocytes (%) (Auto) 7.5 % Eosinophils (%) (Auto) 1.7 % Basophils (%) (Auto) 0.8 % Neutrophils # (Auto) 4.3 TH/MM3 Lymphocytes # (Auto) 1.7 TH/MM3 Monocytes # (Auto) 0.5 TH/MM3 Eosinophils # (Auto) 0.1 TH/MM3 Basophils # (Auto) 0.1 TH/MM3 CBC Comment DIFF FINAL Differential Comment Prothrombin Time 11.1 SEC Prothromb Time International Ratio 1.0 RATIO Activated Partial Thromboplast Time 22.5 SEC Blood Urea Nitrogen 11 MG/DL Creatinine 1.25 MG/DL Random Glucose 109 MG/DL Total Protein 6.6 GM/DL Albumin 3.4 GM/DL Calcium Level 8.7 MG/DL Magnesium Level 2.0 MG/DL Alkaline Phosphatase 53 U/L Aspartate Amino Transf (AST/SGOT) 10 U/L Alanine Aminotransferase (ALT/SGPT) 9 U/L Total Bilirubin 0.3 MG/DL Sodium Level 143 MEQ/L Potassium Level 3.1 MEQ/L Chloride Level 109 MEQ/L Carbon Dioxide Level 25.5 MEQ/L Anion Gap 9 MEQ/L Estimat Glomerular Filtration Rate 53 ML/MIN Troponin I 0.02 NG/ML MDM Medical Decision Making Medical Screen Exam Complete: Yes Emergency Medical Condition: Yes Differential Diagnosis Skull fracture versus ICH versus cervical radiculopathy versus spondylosis versus fracture versus other Narrative Course 61-year-old female with PMH of GERD, HTN presents to the ED via EMS for evaluation of syncopal episode this AM. Patient states she experienced tunnel vision and dizziness and fell to the floor. Questionable LOC. On presentation she endorses 7/10 pain in the right side of the head that radiates down the right arm. She states that she feels "groggy and weak." She denies chest pain , shortness of breath, nausea, vomiting, dysuria, hematuria. She has been ambulatory since the accident. Denies alcohol or drug use. Vitals reviewed. Physical exam reveals no focal neuro deficit. She does have some midline tenderness in the cervical spine and pain with flexion. C-collar was applied. She has a little bit of weakness of the right it network engineer strength, this may be secondary to carpal tunnel. Exam otherwise unremarkable. Per record review patient underwent heart 10/23/15. EF 60% No Evidence of CAD. CBC: WBC 6.7. Hemoglobin 10.5. CMP: Potassium 3.1. BUN 11. Creatinine 1.25. UA: Pending Coags: INR 1.0 CXR: No acute disease EKG: Rate 65, sinus rhythm. Normal intervals. Normal axis. No acute ST changes. Reviewed by Dr. Meier. Cardiac enzymes: Negative 1. CT brain: No acute disease. CT cervical spine: C5 6 disc protrusion with mild spinal stenosis. Rectal exam: Guaiac negative I discussed the results workup with the patient. I suspect she had a TIA and will require workup. She is agreeable to admission. I spoke with who agrees to accept the patient to the medicine service. Please see medicine notes for disposition. [facility] Point of Care Internal Pos. & Neg. Controls: Passed Fecal Specimen Occult Blood: Negative Referrals: Freida Loja MD, Adrianne PA Sep 06, 2017 16:49
[2017-09-06] MEDS ORDERED: SODIUM CHLORIDE 0.9% FLUSH 10 ML FLUSH IVF PRN (17:00)
[2017-09-06] MEDS ORDERED: SODIUM CHLOR 0.9% 1000 ML INJ 1,000 ML IV ONE (17:00)
--- NOTE | 2017-09-06 17:22 | RADRPT ---
EXAM DATE/TIME: 09/06/2017 16:58 [facility] COMPARISON: CHEST SINGLE AP, July 20, 2017, 15:11. INDICATIONS : Palpitations. MEDICAL HISTORY : None. SURGICAL HISTORY : None. ENCOUNTER: Initial ACUITY: 1 day PAIN SCORE: 0/10 LOCATION: Bilateral chest FINDINGS: A single view of the chest demonstrates the lungs to be symmetrically aerated without evidence of mas s, infiltrate or effusion. The cardiomediastinal contours are unremarkable. Osseous structures are intact. CONCLUSION: No acute disease. Asael May MD FACR on September 06, 2017 at 17:20 Board Certified Radiologist. This report was verified electronically.
--- NOTE | 2017-09-06 17:27 | RADRPT ---
EXAM DATE/TIME: 09/06/2017 17:15 [facility] COMPARISON: CT BRAIN W/O CONTRAST, March 02, 2016, 15:57. INDICATIONS : Syncopal episodes. RADIATION DOSE: 29.92 CTDIvol (mGy) MEDICAL HISTORY : Cardiovascular disease. Hypertension. Asthma SURGICAL HISTORY : Hysterectomy. ENCOUNTER: Initial ACUITY: 1 day PAIN SCALE: 0/10 LOCATION: cranial TECHNIQUE: Multiple contiguous axial images were obtained of the head. Using automated exposure control and adj ustment of the mA and/or kV according to patient size, radiation dose was kept as low as reasonably a chievable to obtain optimal diagnostic quality images. DICOM format image data is available electro nically for review and comparison. FINDINGS: CEREBRUM: The ventricles are normal for age. No evidence of midline shift, mass lesion, hemorrhage or acute in farction. No extra-axial fluid collections are seen. POSTERIOR FOSSA: The cerebellum and brainstem are intact. The 4th ventricle is midline. The cerebellopontine angle i s unremarkable. EXTRACRANIAL: The visualized portion of the orbits is intact. SKULL: The calvaria is intact. No evidence of skull fracture. CONCLUSION: No acute disease. Asael May MD FACR on September 06, 2017 at 17:25 Board Certified Radiologist. This report was verified electronically.
--- NOTE | 2017-09-06 17:39 | RADRPT ---
EXAM DATE/TIME: 09/06/2017 17:15 [facility] COMPARISON: No previous studies available for comparison. INDICATIONS : Syncopal episodes. RADIATION DOSE: 9.65 CTDIvol (mGy) MEDICAL HISTORY : Cardiovascular disease. Hypertension. Asthma SURGICAL HISTORY : Hysterectomy. ENCOUNTER: Initial ACUITY: 1 day PAIN SCALE: 0/10 LOCATION: neck TECHNIQUE: Volumetric scanning of the cervical spine was performed. Multiplanar reconstructions in the sagittal, coronal and oblique axial planes were performed. Using automated exposure control and adjustment o f the mA and/or kV according to patient size, radiation dose was kept as low as reasonably achievable to obtain optimal diagnostic quality images. DICOM format image data is available electronically f or review and comparison. FINDINGS: VERTEBRAE: Normal vertebral body height. ALIGNMENT: No evidence of subluxation. C2-C3: The bony spinal canal is normal in size. No evidence of disc bulge or herniation. The neural forami na are bilaterally patent. C3-C4: The bony spinal canal is normal in size. No evidence of disc bulge or herniation. The neural forami na are bilaterally patent. C4-C5: The bony spinal canal is normal in size. No evidence of disc bulge or herniation. The neural forami na are bilaterally patent. C5-C6: There is asymmetrical to left-sided disc protrusion causing some flattening of the anterior thecal sp teagan and mild spinal stenosis. There is minimal encroachment on the left C6 root. C6-C7: The bony spinal canal is normal in size. No evidence of disc bulge or herniation. The neural forami na are bilaterally patent. C7-T1: The bony spinal canal is normal in size. No evidence of disc bulge or herniation. The neural forami na are bilaterally patent. CONCLUSION: C5-C6 disc protrusion as described above central to left-sided. Asael May MD FACR on September 06, 2017 at 17:35 Board Certified Radiologist. This report was verified electronically.
[2017-09-06 17:40] VITALS: BP 113/65; PULSE 54; RESP 18; TEMP 99.1; O2SAT 99
[2017-09-06 18:28] LABS: AUTOMATED NEUTROPHIL # 4.3 TH/MM3 (1.8-7.7); BASOPHIL # 0.1 TH/MM3 (0-0.2); BASOPHIL % 0.8 % (0.0-2.0); EOSINOPHIL # 0.1 TH/MM3 (0-0.4); EOSINOPHIL % 1.7 % (0.0-4.0); HEMATOCRIT 30.6 % (35.0-46.0); HEMO FLAGS DIFF FINAL; LYMPH % 25.4 % (9.0-44.0); LYMPHOCYTE # 1.7 TH/MM3 (1.0-4.8); MEAN CELL VOLUME 94.6 FL (80.0-100.0); MEAN CORPUSCULAR HEMOGLOBIN 32.6 PG (27.0-34.0); MEAN CORPUSCULAR HGB CONC 34.5 % (32.0-36.0); MONO % 7.5 % (0.0-8.0); NEUT % 64.6 % (16.0-70.0); PLATELET COUNT 218 TH/MM3 (150-450); RED BLOOD COUNT 3.24 MIL/MM3 (4.00-5.30); RED CELL DISTRIBUTION WIDTH 14.1 % (11.6-17.2); WHITE BLOOD COUNT 6.7 TH/MM3 (4.0-11.0)
[2017-09-06 18:34] LABS: ANION GAP 9 MEQ/L (5-15); AST (GOT) 10 U/L (15-37); BICARBONATE 25.5 MEQ/L (21.0-32.0); BLOOD UREA NITROGEN 11 MG/DL (7-18); CHLORIDE 109 MEQ/L (98-107); GLOMERULAR FILTRATION RATE 53 ML/MIN (>89); POTASSIUM 3.1 MEQ/L (3.5-5.1); SODIUM (NA) 143 MEQ/L (136-145)
[2017-09-06 18:35] LABS: ALT (GPT) 9 U/L (10-53)
[2017-09-06 18:39] LABS: ALKALINE PHOSPHATASE 53 U/L (45-117); TOTAL BILIRUBIN ADULT 0.3 MG/DL (0.2-1.0)
[2017-09-06 18:48] LABS: APTT (PATIENT) 22.5 SEC (24.3-30.1); PROTHROMBIN TIME - PATIENT 11.1 SEC (9.8-11.6)
[2017-09-06] MEDS ORDERED: ASPIRIN 325 MG TAB PO ONE (19:15)
[2017-09-06] MEDS ORDERED: SODIUM CHLORIDE 0.9% FLUSH 10 ML FLUSH IV FLUSH PRN (19:30)
[2017-09-06] MEDS ORDERED: GADODIAMIDE PF 287 MG/ML 10 ML VIAL (for RAD MRI) IV PUSH ONE (19:32)
[2017-09-06 19:36] LABS: BLOOD, URINE NEG (NEG); COMMENT (UR) CULT NOT INDICATED; CULTURE IF INDICATED CULT NOT INDICATED; GLUCOSE,URINE NEG (NEG); HYALINE CAST, URINE 9 /lpf (RARE); KETONE, URINE NEG (NEG); MUCUS URINE FEW /lpf (OCC); NITRITE,URINE NEG (NEG); PH, URINE 7.5 (5.0-8.5); SQUAMOUS EPITHELIAL CELL URINE <1 /hpf (0-5); URINE COLOR LIGHT-YELLOW (YELLW/STRAW)
[2017-09-06 19:47] VITALS: BP 117/65; PULSE 62; RESP 16; O2SAT 98
--- NOTE | 2017-09-06 22:01 | RADRPT ---
EXAM DATE/TIME: 09/06/2017 21:30 [facility] COMPARISON: US CAROTID ARTERIES, March 03, 2016, 8:01. INDICATIONS : Transient ischemic attack. MEDICAL HISTORY : Hypertension. Gastroesophageal reflux disease. Asthma. Arthritis. Depression. Anemia. SURGICAL HISTORY : Hysterectomy. section. Lumpectomy. ENCOUNTER: Initial ACUITY: 1 day PAIN SCORE: 0/10 LOCATION: Bilateral neck PEAK SYSTOLIC VELOCITIES (cm/sec): ICA/CCA RATIO: Right: 1.2 Left: 1.0 ICA: Right: 67 Left: 64 CCA: Right: 54 Left: 67 ECA: Right: 74 Left: 60 VERTEBRAL: Right: 25 antegrade/retrograde Left: 59 antegrade Elevated flow velocities and ICA/CCA ratios have been found to correlate with increased degrees of vessel stenosis, calculated as percentage of diameter relative to a normal segment of distal ICA/CCA FINDINGS: RIGHT CAROTID: No significant stenosis is visualized. The waveforms are within normal limits. LEFT CAROTID: No significant stenosis is visualized. The waveforms are within normal limits. VERTEBRAL ARTERIES: Abnormal waveform in the right vertebral suggests bidirectional flow. Antegrade flow in the left vert ebral. MISCELLANEOUS: None. CONCLUSION: 1. There appears to be bidirectional flow in the diminutive right vertebral. Findings could be indica tive of a proximal high-grade stenosis of this vessel. 2. However, the patient appears to be left vertebral dominant. The left vertebral and both carotids a ppear to be widely patent with no significant stenosis. Yan Telles MD on September 06, 2017 at 21:55 Board Certified Radiologist. This report was verified electronically.
[2017-09-06 22:43] VITALS: PULSE 52
[2017-09-06] MEDS: SODIUM CHLORIDE 0.9% FLUSH 10 ML FLUSH IV FLUSH SCH (22:44)
[2017-09-06 23:56] VITALS: PULSE 55
[2017-09-07] VITALS (9 sets, daily range): BP systolic 96–141; BP diastolic 52–75; PULSE 49–65; RESP 18–20; TEMP 98–98.5; O2SAT 98–100
--- NOTE | 2017-09-07 03:16 | HHI.HP ---
HPI Service [facility] Primary Care Physician Juan Carlos Ferris MD, PhD Admission Diagnosis TIA, cervical radiculopathy Diagnoses: Travel History International Travel<30 Days: No Contact w/Intl Traveler <30 Da: No Traveled to Known Affected Are: No History of Present Illness hx from patient, ER provider communication and review of med records just came from store, around the corner was going to microwave some food and felt something was not right passed out and fell - not sure which side she fell on earlier morning in am, felt light headed, hand was shaking and could not control it, and when bending over to mop the floor, did not feel good was feeling light headed no dizziness no palpitations no chest pains but had neck and arm pains never passed out before no recent changes in meds was given antidepressants recently- started about 2 weeks ago, sertaline 25mg po once a day have been feeling cold, but no fever last week, woke up and drenched in sweat- just once had nausea, no vomiting no black or red stool, no blood in urine has had ringing in ears - happens at night, comes and goes reports hx of vertigo, but this was different symptoms Review of Systems Except as stated in HPI: all other systems reviewed are Neg Past Family Social History Past Medical History htn emphysema bronchial asthma depression grade I diastolic clean coronaries but with torturous anatomy on ntg prn hx of genital herpes on acyclovir life long Past Surgical History 2 c section hysterectomy hernia repair carpal tunnel on right hand left breast lumpectomy left wrist ganglion removal Allergies: Coded Allergies: naproxen (Verified Adverse Reaction, Severe, NAUSEA, 09/06/17) Family History mother- mi father- cad with stent Social History never smoked no etoh abuse no drugs lives on her own, no longer driving Physical Exam Vital Signs Vital Signs Date Time Temp Pulse Resp B/P (MAP) Pulse Ox O2 Delivery O2 Flow Rate FiO2 09/07/17 00:11 98.0 56 18 103/57 (72) 99 09/06/17 19:47 62 16 117/65 (82) 98 Room Air 09/06/17 17:40 99.1 54 18 113/65 (81) 99 Room Air 09/06/17 15:53 98.6 70 18 104/68 (80) 98 Physical Exam GENERAL: This is a well-nourished, well-developed patient, in no apparent distress. flat affect SKIN: No rashes, ecchymoses or lesions. Cool and dry. HEAD: Atraumatic. Normocephalic. No temporal or scalp tenderness. EYES: . No scleral icterus. No injection or drainage. ENT: Nose without bleeding, purulent drainage or septal hematoma. . Airway patent. NECK: Trachea midline. No JVD CARDIOVASCULAR: Regular rate and rhythm without murmurs, gallops, or rubs. RESPIRATORY: Clear to auscultation. Breath sounds equal bilaterally. No wheezes , rales, or rhonchi. GASTROINTESTINAL: Abdomen soft, non-tender, nondistended. No guarding. MUSCULOSKELETAL: Extremities without clubbing, cyanosis, or edema. . No calf tenderness. NEUROLOGICAL: Awake and alert. Motor and sensory grossly within normal limits. Normal speech. Laboratory Laboratory Tests Test 09/06/17 17:50 09/06/17 18:15 White Blood Count 6.7 Red Blood Count 3.24 Hemoglobin 10.5 Hematocrit 30.6 Mean Corpuscular Volume 94.6 Mean Corpuscular Hemoglobin 32.6 Mean Corpuscular Hemoglobin Concent 34.5 Red Cell Distribution Width 14.1 Platelet Count 218 Mean Platelet Volume 8.6 Neutrophils (%) (Auto) 64.6 Lymphocytes (%) (Auto) 25.4 Monocytes (%) (Auto) 7.5 Eosinophils (%) (Auto) 1.7 Basophils (%) (Auto) 0.8 Neutrophils # (Auto) 4.3 Lymphocytes # (Auto) 1.7 Monocytes # (Auto) 0.5 Eosinophils # (Auto) 0.1 Basophils # (Auto) 0.1 CBC Comment DIFF FINAL Differential Comment Prothrombin Time 11.1 Prothromb Time International Ratio 1.0 Activated Partial Thromboplast Time 22.5 Blood Urea Nitrogen 11 Creatinine 1.25 Random Glucose 109 Total Protein 6.6 Albumin 3.4 Calcium Level 8.7 Magnesium Level 2.0 Alkaline Phosphatase 53 Aspartate Amino Transf (AST/SGOT) 10 Alanine Aminotransferase (ALT/SGPT) 9 Total Bilirubin 0.3 Sodium Level 143 Potassium Level 3.1 Chloride Level 109 Carbon Dioxide Level 25.5 Anion Gap 9 Estimat Glomerular Filtration Rate 53 Troponin I 0.02 Urine Color LIGHT-YELLOW Urine Turbidity CLEAR Urine pH 7.5 Urine Specific [place] 1.006 Urine Protein NEG Urine Glucose (UA) NEG Urine Ketones NEG Urine Occult Blood NEG Urine Nitrite NEG Urine Bilirubin NEG Urine Urobilinogen LESS THAN 2.0 Urine Leukocyte Esterase SMALL Urine RBC LESS THAN 1 Urine WBC 6 Urine Squamous Epithelial Cells <1 Urine Hyaline Casts 9 Urine Mucus FEW Microscopic Urinalysis Comment CULT NOT INDICATED Result Diagram: 09/06/17174909/06/171749 Imaging Last 48 hours Impressions Cervical Spine CT 09/06/17 165 Signed Impressions: Service Date/Time: Wednesday, September 06, 2017 17:15 - CONCLUSION: C5-C6 disc protrusion as described above central to left-sided. Asael May MD FACR Head CT 09/06/171648 Signed Impressions: Service Date/Time: Wednesday, September 06, 2017 17:15 - CONCLUSION: No acute disease. Asael May MD FACR Chest X-Ray 09/06/171648 Signed Impressions: Service Date/Time: Wednesday, September 06, 2017 16:58 - CONCLUSION: No acute disease. Asael May MD FACR Carotid Artery Ultrasound 09/06/17 0000 Signed Impressions: Service Date/Time: Wednesday, September 06, 2017 21:30 - CONCLUSION: 1. There appears to be bidirectional flow in the diminutive right vertebral. Findings could be indicative of a proximal high-grade stenosis of this vessel. 2. However, the patient appears to be left vertebral dominant. The left vertebral and both carotids appear to be widely patent with no significant stenosis. Yan Telles MD Caprini VTE Risk Assessment Caprini VTE Risk Assessment: Mod/High Risk (score >= 2) Caprini Risk Assessment Model Point Value = 1 Point Value = 2 Point Value = 3 Point Value = 5 Age 41-60 Minor surgery BMI > 25 kg/m2 Swollen legs Varicose veins or History of unexplained or recurrent spontaneous Oral contraceptives or hormone replacement Sepsis (< 1 month) Serious lung disease, including pneumonia (< 1 month) Abnormal pulmonary function Acute myocardial infarction Congestive heart failure (< 1 month) History of inflammatory bowel disease Medical patient at bed rest Age 61-74 Arthroscopic surgery Major open surgery (> 45 min) Laparoscopic surgery (> 45 min) Malignancy Confined to bed (> 72 hours) Immobilizing plaster cast Central venous access Age >= 75 History of VTE Family history of VTE Factor V Leiden Prothrombin [id number] Lupus anticoagulant Anticardiolipin antibodies Elevated serum homocysteine Heparin-induced thrombocytopenia Other congenital or acquired thrombophilia Stroke (< 1 month) Elective arthroplasty Hip, pelvis, or leg fracture Acute spinal cord injury (< 1 month) Prophylaxis Regimen Total Risk Factor Score Risk Level Prophylaxis Regimen 0-1 Low Early ambulation 2 Moderate Order ONE of the following: *Sequential Compression Device (SCD) *Heparin 5000 units SQ BID 3-4 Higher Order ONE of the following medications: *Heparin 5000 units SQ TID *Enoxaparin/Lovenox 40 mg SQ daily (WT < 150 kg, CrCl > 30 mL/min) *Enoxaparin/Lovenox 30 mg SQ daily (WT < 150 kg, CrCl > 10-29 mL/min) *Enoxaparin/Lovenox 30 mg SQ BID (WT < 150 kg, CrCl > 30 mL/min) AND/OR *Sequential Compression Device (SCD) 5 or more Highest Order ONE of the following medications: *Heparin 5000 units SQ TID (Preferred with Epidurals) *Enoxaparin/Lovenox 40 mg SQ daily (WT < 150 kg, CrCl > 30 mL/min) *Enoxaparin/Lovenox 30 mg SQ daily (WT < 150 kg, CrCl > 10-29 mL/min) *Enoxaparin/Lovenox 30 mg SQ BID (WT < 150 kg, CrCl > 30 mL/min) AND *Sequential Compression Device (SCD) Assessment and Plan Assessment and Plan Impression: syncope s/p fall due to syncope c6 disc protrusion low hgb - with drop as compared to 1 month ago labs- guiac done in er is negative ; had colonoscopy prior hypokalemia htn emphysema bronchial asthma depression grade I diastolic clean coronaries but with torturous anatomy on ntg prn hx of genital herpes on acyclovir life long Plan: kcl replacement tele monitoring carotid sono serial hgb in am echo last echo in 10/2015- grade i diastolic dysfunction pain control outpatient GI workup for anemia resume home meds dvt prophylaxis with lovenox Discussed Condition With patient, ER provider, nursing staff Cassie Andres MD Sep 07, 2017 03:16
[2017-09-07] MEDS: ACETAMINOPHEN/HYDROcodone 325 MG/5 MG TAB PO PRN ×2 (05:02→14:25)
[2017-09-07 08:27] LABS: HDL CHOLESTEROL 77.2 MG/DL (40.0-60.0)
--- NOTE | 2017-09-07 09:24 | MB ---
cc: YVONNE GEE DATE OF CONSULTATION: 09/07/2017 HISTORY OF PRESENT ILLNESS A 61-year-old right-handed woman with a history of hypertension, hypercholesterolemia, peptic ulcer disease, right carpal tunnel syndrome, depression, anxiety. She does not take an aspirin a day. She has had trouble for a few years with her right leg being numb or giving out occasionally. She had some falls over the last 2 years without syncope. Yesterday in the morning she felt lightheaded when she was leaning over and some chest pressure was noted and heaviness in her chest that lasted about 2 minutes and went away and then about 01:00 p.m. she again felt lightheaded and her knees buckled and she went to the floor. She thinks she passed out just for split second. No odd smells, taste or juliana vu. She never woken up wet the bed or bit her tongue, never had a seizure. Usually on her falls over the last 2 years, however, she does not pass out. She changed her antidepressant about 2 weeks ago but no change in her blood pressure meds. She also complains of about a year of neck pain which goes down into the right elbow. Sounds like she had an EMG of the right upper extremity, I am not sure if that was actually done in my office or not. SOCIAL HISTORY She is not a smoker or a drinker, lives alone. FAMILY HISTORY Negative for cancer, seizure, stroke. REVIEW OF SYSTEMS Denies diabetes, HI, stent, angioplasty, atrial fibrillation, Coumadin, renal, hepatic or pulmonary disease, thyroid disease, lupus, cancer, seizure or stroke. MEDICATIONS She is on: 1. Alphagan drops. 2. Acyclovir. 3. Amlodipine. 4. Nitrostat. ALLERGIES NAPROXEN. PAST MEDICAL HISTORY I actually saw her in February of last year 2015, so at that time she has some liver problems remotely, vertigo years ago, she had some ringing in the right ear, felt dizzy, spinning with vertigo. Blood pressure was initially 200/81. I thought she had a benign positional vertigo. She had an echocardiogram done in October of last year with a normal ejection fraction, normal valves, normal left atrial size. Hallpike maneuver was positive to the left when I saw her last year ___ x2 starting on the left. PHYSICAL EXAMINATION VITAL SIGNS: On exam sinus rhythm, afebrile, 52, 18, 100/57. Initial blood pressure 104/68. So her blood pressures run a lot lower than they used to. NECK: There were no carotid bruits. HEART: Regular rhythm. I do not detect a murmur. NEURO: Pupils are equal. Visual ponce are full. Extraocular movements intact without nystagmus. Face symmetric with normal sensation. Tongue was midline. There is no drift. She had normal strength in upper and lower extremities bilateral including the right lower extremity, iliopsoas, hamstring, quad, tibialis anterior. Toes are downgoing bilaterally. DTRs are trace to 1+ in the upper extremities, 2+ on the left knee jerk, 3+ on the right knee jerk but no ankle clonus and normal tone in the right lower extremity. Pinprick and vibratory sense proprioception were intact throughout. She is not ataxic on [id number] or kpqe-ow-xegb. Speech is hypophonic. She appears depressed. LABORATORY DATA CBC is normal. Urine drug screen was negative last month. UA 6 white cells, small amount of leuko-esterase on this admission. Coags normal. Basic metabolic profile potassium is 3.1. Creatinine 1.2. LFTs normal. Troponin, albumin normal. TSH normal a year ago and CBC was normal. IMAGING STUDIES She had a CT of the cervical spine which showed a C5-6 disk on the left side, some slight impingement on the cord. She had a chest x-ray that was negative. She had a CAT scan of her brain that was normal. She had a carotid ultrasound which showed bidirectional flow on the right vertebral but she was left vertebral dominant. She had a MRA of her neck done which was read as normal in February of last year. MRA of the Owneaf-ph-Wnpibh was also normal. MRI of the brain at that time was normal. Review of the MRA of the neck from last time shows that she is left vertebral dominant and the right vertebral appears to be fastigial. IMPRESSION A syncopal episode. I would check her orthostatics. She may just have some low blood pressure. She is hyperreflexic in the right lower extremity, I am not quite sure why that is. Will check an MRI of the brain and MRI of the cervical and thoracic spine. I would recommend having the med team have cardiology see her for the chest pain before she passed out, although it does look like she has had chest pain workup in the past. Followup her LDL cholesterol, check a B12 level on her and a sed rate and I will be following her with you in the hospital. She had some significant depression. I would not recommend giving her narcotics here in the hospital. She should get restarted on her antidepressant med. At this point with the syncopal episode I would not recommend Wellbutrin or tramadol in the future due to increased seizure risk with those meds, and will check an EEG on her also, but this seemed like a more of a low blood pressure. Also check a Holter monitor on her. MD KYLE Mauricio/ALEJANDRO /8:11 AM /8:36 AM
[2017-09-07] MEDS: ACYCLOVIR 200 MG CAP PO SCH ×2 (11:19→20:17)
[2017-09-07] MEDS: amLODIPine BESYLATE 5 MG TAB PO SCH (11:19)
[2017-09-07] MEDS: SODIUM CHLORIDE 0.9% FLUSH 10 ML FLUSH IV FLUSH SCH ×2 (11:20→20:17)
--- NOTE | 2017-09-07 14:29 | RADRPT ---
EXAM DATE/TIME: 09/07/2017 12:17 [facility] COMPARISON: MRI BRAIN W/O CONTRAST, March 02, 2016, 19:43. MRA BRAIN W/O CONTRAST, March 03, 2016, 8:31. INDICATIONS : Syncopal episodes. CONTRAST: 10 cc Omniscan (gadodiamide) IV MEDICAL HISTORY : Hypertension. SURGICAL HISTORY : Hysterectomy. section. Hernia repair. Left breast cyst removed. ENCOUNTER: Subsequent ACUITY: 2 day PAIN SCORE: 0/10 LOCATION: head. This would be considered an anaphylactic reaction to contrast and patient should be appropriately med icated TECHNIQUE: Multiplanar, multisequence MRI of the brain was performed both prior to and following the administrat ion of paramagnetic contrast. FINDINGS: CEREBRUM: The ventricles are normal for age. No evidence of midline shift, mass lesion, hemorrhage or acute in farction. No extraaxial fluid collections are seen. The pituitary gland and suprasellar cistern are normal in configuration. WHITE MATTER: There are some scattered areas of increased T2 signal within the white matter most consistent with mi ld microvascular ischemic demyelinative change. No significant signal abnormalities are seen in the w justo matter. POSTERIOR FOSSA: The cerebellum and brainstem are intact. The 4th ventricle is midline. The cerebellopontine angle is unremarkable. The cerebellar tonsils are normal in position. DIFFUSION IMAGING: No focal areas of restricted diffusion are seen. No evidence of acute infarction. EXTRACRANIAL: The visualized portions of the orbits and paranasal sinuses are unremarkable. POST-CONTRAST: No abnormal areas of parenchymal or dural enhancement. No evidence of blood-brain barrier breakdown. CONCLUSION: 1. Scattered areas of white matter disease most likely related to microvascular ischemic demyelinativ e change. No acute abnormality identified. No enhancing lesion identified. The exam is stable compare d to previous dated 03/02/16. Jc May MD on September 07, 2017 at 14:18 Board Certified Radiologist. This report was verified electronically.
--- NOTE | 2017-09-07 14:32 | RADRPT ---
EXAM DATE/TIME: 09/07/2017 12:17 [facility] COMPARISON: No previous studies available for comparison. INDICATIONS : Syncopal episodes. MEDICAL HISTORY : Hypertension. SURGICAL HISTORY : Hysterectomy. section. Hernia repair. Left breast cyst removed. ENCOUNTER: Subsequent ACUITY: 2 day PAIN SCORE: 0/10 LOCATION: head. Please note a normal MRA of the brain does not entirely exclude the possibility of a small aneurysm, nor the possibility of distal intracranial vessel disease. TECHNIQUE: 3D time of flight MRA was performed. Source images, multiplanar STS MIP, and 3D volume MIP reconstru ctions were reviewed. FINDINGS: The anterior circulation vessels are intact and unremarkable. There is origin of the right post erior cerebral artery. There is short fenestration of the upper basilar artery. The right vertebral a rtery is diminutive. There is no evidence of aneurysm or vascular malformation. No major vessel occlu yesenia or stenosis is appreciated. CONCLUSION: No acute osage of Tariq vascular findings Avery Yao MD on September 07, 2017 at 14:25 Board Certified Radiologist. This report was verified electronically.
--- NOTE | 2017-09-07 15:04 | RADRPT ---
EXAM DATE/TIME: 09/07/2017 12:17 [facility] COMPARISON: No previous studies available for comparison. INDICATIONS : Myelopathy. CONTRAST: 10 cc Omniscan (gadodiamide) IV MEDICAL HISTORY : Hypertension. SURGICAL HISTORY : Hysterectomy. section. Hernia repair. Left breast cyst removed. ENCOUNTER: Subsequent ACUITY: 2 day PAIN SCORE: 2/10 LOCATION: neck TECHNIQUE: Multiplanar, multisequence MRI examination of the cervical spine was performed. FINDINGS: VERTEBRAE: Normal vertebral body height. Homogeneous marrow signal. ALIGNMENT: No evidence of subluxation. CORD: Normal configuration and signal. POST FOSSA: The cerebellar tonsils are normal in position. POST-CONTRAST: No abnormal areas of enhancement are seen. C2-C3: The thecal sac has a normal configuration. There is no evidence of disc herniation or spinal canal stenosis. The neural foramina are patent bilaterally. C3-C4: There is a minimal broad-based disc bulge. No abutment of the cord or central canal stenosis. Neural foramina are patent bilaterally. C4-C5: There is a minimal broad-based disc bulge. No abutment of the cord or central canal stenosis. Neural foramina are patent bilaterally. C5-C6: Broad-based disc bulge with left paracentral protrusion. This abuts the ventral portion of the cord w ithout distortion of the cord. The lateral recesses and central canal are patent. C6-C7: The thecal sac has a normal configuration. There is no evidence of disc herniation or spinal canal s tenosis. The neural foramina are patent bilaterally. C7-T1: The thecal sac has a normal configuration. There is no evidence of disc herniation or spinal canal s tenosis. The neural foramina are patent bilaterally. CONCLUSION: 1. Normal signal throughout the cord. 2. Degenerative changes most pronounced at C5-C6 with a left paracentral protrusion that just touches the ventral portion of the cord. Boyd Hawkins Jr., MD on September 07, 2017 at 14:56 Board Certified Radiologist. This report was verified electronically.
--- NOTE | 2017-09-07 15:43 | ECHRPT ---
Indication: CVA/TIA CONCLUSIONS Normal left ventricular size. Wall thickness is normal. The left ventricular systolic function is normal with an estimated ejection fraction in the range of 55-60%. There is mild tricuspid valve regurgitation. The estimated pulmonary arterial pressure is 30 mmHg. BP: 117 / 65 HR: 70 Rhythm: MEASUREMENTS (Male / Female) Normal Values Technical Quality:Good 2D ECHO LV Diastolic Diameter PLAX 3.9 cm 4.2 - 5.9 / 3.9 - 5.3 cm LV Systolic Diameter PLAX 2.8 cm IVS Diastolic Thickness 0.9 cm 0.6 - 1.0 / 0.6 - 0.9 cm LVPW Diastolic Thickness 1.0 cm 0.6 - 1.0 / 0.6 - 0.9 cm LV Relative Wall Thickness 0.5 RV Internal Dim ED PLAX 2.3 cm LA Systolic Diameter LX 2.5 cm 3.0 - 4.0 / 2.7 - 3.8 cm M-MODE AV Cusp Separation MM 1.6 cm DOPPLER AV Peak Velocity 240.0 cm/s AV Peak Gradient 23.0 mmHg LVOT Peak Velocity 169.0 cm/s LVOT Peak Gradient 11.4 mmHg Mitral E Point Velocity 118.0 cm/s Mitral A Point Velocity 92.5 cm/s Mitral E to A Ratio 1.3 TR Peak Velocity 249.3 cm/s TR Peak Gradient 24.9 mmHg Right Atrial Pressure 5.0 mmHg Pulmonary Artery Systolic Pressu 29.9 mmHg Right Ventricular Systolic Press 29.9 mmHg FINDINGS LEFT VENTRICLE Normal left ventricular size. Wall thickness is normal. The left ventricular systolic function is normal with an estimated ejection fraction in the range of 55-60%. RIGHT VENTRICLE Normal right ventricular size and systolic function. LEFT ATRIUM The left atrial size is normal. RIGHT ATRIUM The right atrial size is normal. ATRIAL SEPTUM Normal atrial septal thickness without atrial level shunting by limited color doppler interrogation. AORTA The aortic root and proximal ascending aorta are normal in size on limited imaging. MITRAL VALVE Structurally normal mitral valve. No mitral valve stenosis or regurgitation. AORTIC VALVE Trileaflet aortic valve. No aortic valve stenosis or regurgitation. TRICUSPID VALVE There is mild tricuspid valve regurgitation. The estimated pulmonary arterial pressure is 30 mmHg. PULMONARY VALVE No pulmonary valve regurgitation or stenosis. VESSELS The inferior vena cava is normal in size. PERICARDIUM No pericardial effusion. Elmo Hannon MD (Electronically Signed) Final Date:07 September 2017 15:42
--- NOTE | 2017-09-07 16:05 | RADRPT ---
EXAM DATE/TIME: 09/07/2017 12:17 [facility] COMPARISON: No previous studies available for comparison. INDICATIONS : Myelopathy. Back pain. CONTRAST: 10 cc Omniscan (gadodiamide) IV MEDICAL HISTORY : Hypertension. SURGICAL HISTORY : Hysterectomy. section. Hernia repair. Left breast cyst removed. ENCOUNTER: Subsequent ACUITY: 2 day PAIN SCORE: 4/10 LOCATION: back. TECHNIQUE: Multiplanar multisequence MRI of the thoracic spine was performed. FINDINGS: VERTEBRA: Normal vertebral body height. Homogeneous marrow signal. ALIGNMENT: Normal. CORD: Normal position and configuration. POST CONTRAST: No abnormal areas of contrast enhancement seen. T1-T2: Normal. T2-T3: The thecal sac has a normal diameter. No evidence of disc bulge or protrusion. T3-T4: The thecal sac has a normal diameter. No evidence of disc bulge or protrusion. T4-T5: The thecal sac has a normal diameter. No evidence of disc bulge or protrusion. T5-T6: The thecal sac has a normal diameter. No evidence of disc bulge or protrusion. T6-T7: The thecal sac has a normal diameter. No evidence of disc bulge or protrusion. T7-T8: The thecal sac has a normal diameter. No evidence of disc bulge or protrusion. T8-T9: The thecal sac has a normal diameter. No evidence of disc bulge or protrusion. T9-T10: The thecal sac has a normal diameter. No evidence of disc bulge or protrusion. T10-T11: The thecal sac has a normal diameter. No evidence of disc bulge or protrusion. T11-T12: The thecal sac has a normal diameter. No evidence of disc bulge or protrusion. T12-L1: The thecal sac has a normal diameter. No evidence of disc bulge or protrusion. CONCLUSION: Normal examination. Boyd Hawkins Jr., MD on September 07, 2017 at 15:59 Board Certified Radiologist. This report was verified electronically.
--- NOTE | 2017-09-07 16:07 | EKG ---
Date Performed: 09/06/2017 Time Performed: 17:57:27 PTAGE: 61 years EKG: Sinus rhythm NORMAL ECG Since PREVIOUS TRACING , no significant change noted PREVIOUS TRACIN07/20/2017 14.51 DOCTOR: Janina Sandoval Interpretating Date/Time 09/07/2017 16:06:32
[2017-09-07] MEDS ORDERED: CYANOCOBALAMIN 1,000 MCG TAB PO ONE (16:45)
[2017-09-07 17:02] LABS: BICARBONATE 22.8 MEQ/L (21.0-32.0); POTASSIUM 3.6 MEQ/L (3.5-5.1)
[2017-09-07 17:35] LABS: HEMOGLOBIN A1a 1.3 %; HEMOGLOBIN A1b 1.7 %; HEMOGLOBIN Ao 84.8 %; HEMOGLOBIN LA1C 1.9 %; HEMOGLOBIN P3 3.7 %
--- NOTE | 2017-09-07 22:08 | MG ---
cc: ELLIOTT MORALES MD Lab No:[id number] Date: 09/07/17 Age: 61 Sex: F Race: 1955 A 61-year-old, history of hypertension, dyslipidemia, right carpal tunnel, depression, anxiety, lightheadedness. A 7-10 Hz alpha activity, 20-40 microvolts. Low amplitude beta in the frontal channels. Good anterior-posterior gradient. Reasonable driving with photic stimulation. Eye movement artifact. Single lead EKG showing sinus rhythm. INTERPRETATION Normal EEG. Clinical correlation. MD LARISA Casas/ /9:47 PM /10:00 PM
[2017-09-08 01:38] VITALS: BP 111/58; PULSE 64; RESP 18; TEMP 98.2; O2SAT 98
[2017-09-08 04:51] VITALS: BP 107/55; PULSE 56; RESP 18; TEMP 98.7; O2SAT 98
[2017-09-08] MEDS: ACETAMINOPHEN/HYDROcodone 325 MG/5 MG TAB PO PRN (06:23)
[2017-09-08 06:47] VITALS: PULSE 57
[2017-09-08] MEDS: ACYCLOVIR 200 MG CAP PO SCH (08:09)
[2017-09-08] MEDS: CYANOCOBALAMIN 1,000 MCG TAB PO SCH ×2 (08:10→10:24)
[2017-09-08] MEDS: amLODIPine BESYLATE 5 MG TAB PO SCH (08:10)
[2017-09-08] MEDS: SODIUM CHLORIDE 0.9% FLUSH 10 ML FLUSH IV FLUSH SCH (08:11)
--- NOTE | 2017-09-08 08:17 | HHI.PR ---
Subjective Remarks sr Objective Vital Signs Date Time Temp Pulse Resp B/P (MAP) Pulse Ox O2 Delivery O2 Flow Rate FiO2 09/08/17 06:47 57 09/08/17 04:51 98.7 56 18 107/55 (72) 98 09/08/17 01:38 98.2 64 18 111/58 (75) 98 09/07/17 20:09 98.4 55 18 96/52 (67) 99 102/55 (71) 116/61 (79) 09/07/17 15:28 98.5 58 20 125/66 (85) 99 141/70 (93) 128/75 (92) 09/07/17 15:00 49 09/07/17 11:49 61 09/07/17 08:29 98.5 58 20 105/59 (74) 100 I/O 09/07/17 09/07/17 09/07/17 09/08/17 09/08/17 09/08/17 07:00 15:00 23:00 07:00 15:00 23:00 # Voids 2 Result Diagram: 09/06/17 1750 09/07/17 0702 Objective Remarks vff 5 t/o but pain in left grion mild tender around hip ther and groin depressed looking Assessment and Plan Assessment and Plan imp mra cow nl mri brain no change from 02/21 some odd looking bilat wm changes posteriorly ow neg mastoids ok no cva no enhancement mri c and t spine neg standing bp ok eeg nl ldl 111 statin? b12 156 shots needs holter on plan check mri r hip if neg could dc neuro acosta if cards clears for cp and syncope Refugio Marquis MD Sep 08, 2017 08:17
[2017-09-08 08:24] VITALS: BP 120/58; PULSE 80; RESP 20; TEMP 98.2; O2SAT 95
[2017-09-08] MEDS ORDERED: ENOXAPARIN SODIUM 40 MG/0.4 ML SYRINGE SQ SCH (09:00)
[2017-09-08] MEDS ORDERED: MULTIVITAMIN TAB PO SCH (09:00)
--- NOTE | 2017-09-08 09:42 | MB ---
cc: AGA BURLESON DATE OF CONSULTATION: 09/08/2017 REASON FOR CONSULTATION Atypical chest pain. HISTORY OF PRESENT ILLNESS 61-year-old female with past medical history of hypertension, hyperlipidemia, peptic ulcer disease, right carpal tunnel syndrome, depression, anxiety, left heart catheterization in 2016 which was unremarkable showing hypertensive heart disease with a preserved ejection fraction, who has been consulted to cardiology because of atypical chest pain. The patient reports right-sided chest pain that radiates to the right leg associated with dizziness and lightheadedness, and according to reports she passed out. She has been admitted for observation. She has been seen by the neurologist who has requested a cardiology consultation for evaluation of the chest pain. PAST MEDICAL HISTORY 1. Hypertension. 2. Hyperlipidemia. 3. Peptic ulcer disease. 4. Right carpal tunnel syndrome. 5. Depression. 6. Anxiety. 7. She had a negative cardiac work-up in 2016 with a normal left heart cath and an unremarkable echocardiogram. SOCIAL HISTORY Denies smoking, alcohol use or illicit drug use. FAMILY HISTORY Negative for cancer, seizure or stroke. MEDICATIONS Cardiac home medications: 1. Norvasc 5 mg p.o. daily. 2. Nitroglycerin 0.4 mg sublingual p.r.n. PHYSICAL EXAMINATION VITAL SIGNS: Temperature 98, respiratory rate 20, heart rate 81, blood pressure 120/58. O2 sat 95% on room air. GENERAL: She is awake, alert, oriented, in no acute distress. NECK: No JVD. No carotid bruits. HEART: Regular rate and rhythm. No murmurs, rubs or gallops. LUNGS: Clear to auscultation bilaterally. ABDOMEN: Benign. EXTREMITIES: No cyanosis or edema. Pulses throughout. LABORATORY Hemoglobin 10, hematocrit 30. INR 1. Sodium 146, potassium 3.6, BUN 9, creatinine 1.04. Negative troponins at 0.02, 0.02. ECHOCARDIOGRAM Normal left ventricular size and function with estimated ejection fraction of 55 -60%. No significant valvulopathies. EKG Normal sinus rhythm. No acute ST changes. IMAGING CT scan shows C5-C6 disc on the left side with slight impingement of the cord. CT of the brain was normal. ASSESSMENT 61-year-old female admitted with syncope, consulted to cardiology for atypical chest pain. The patient clearly has atypical symptoms with right-sided chest pain that radiates to the right leg. She denies left side pressure pain, radiation to the jaw or neck, shortness of breath, palpitations, PND or leg edema. The characteristics of her pain are very atypical for ACS. Her troponins have been negative and EKG is unremarkable. She had a recent cardiac work-up in 2016 which was completely normal other than hypertensive coronary artery disease. PLAN/RECOMMENDATIONS At this point I would not consider to pursue further cardiac work-up. I would continue neurological work-up. Consider discharging her with a Holter monitor and follow with cardiology upon discharge. Given her cardiac risk factors for CAD that include age and high blood pressure, I would start her on aspirin and continue Norvasc. Thank you for the opportunity to take part in the care of this patient. Will be available on a p.r.n. basis for any other questions or concerns. MD JANICE Venegas/BT /9:05 AM /9:16 AM MTDRobson
[2017-09-08 10:07] LABS: AUTOMATED NEUTROPHIL # 1.2 TH/MM3 (1.8-7.7); EOSINOPHIL # 0.2 TH/MM3 (0-0.4); HEMATOCRIT 34.4 % (35.0-46.0); HEMO FLAGS DIFF FINAL; LYMPH % 58.3 % (9.0-44.0); LYMPHOCYTE # 2.5 TH/MM3 (1.0-4.8); MEAN CELL VOLUME 93.9 FL (80.0-100.0); MEAN CORPUSCULAR HEMOGLOBIN 32.3 PG (27.0-34.0); MEAN CORPUSCULAR HGB CONC 34.4 % (32.0-36.0); NEUT % 27.7 % (16.0-70.0); PLATELET COUNT 220 TH/MM3 (150-450); RED BLOOD COUNT 3.66 MIL/MM3 (4.00-5.30); WHITE BLOOD COUNT 4.3 TH/MM3 (4.0-11.0)
[2017-09-08 10:41] LABS: BICARBONATE 26.9 MEQ/L (21.0-32.0); POTASSIUM 3.4 MEQ/L (3.5-5.1)
--- NOTE | 2017-09-08 11:03 | HHI.FF ---
Face to Face Verification Diagnosis: (1) Physical deconditioning (2) Cervical radiculopathy at C6 (3) Herniated cervical disc Physical Therapy Order: Evaluate and Treat, Improve ambulation, Strength and gait training Occupational Therapy Order: Evaluate and Treat, Improve ADL, Gross motor coordination, Fine motor coordination I have seen patient Eri Ferreira on 09/08/17. My clinical findings support the need for the requested home health care services because: Deconditioned w/ increased weakness High risk of falls I certify that my clinical findings support that this patient is homebound because: Unsteady gait/balance Unsafe to leave home unassisted Unable to use public transportation Carleen Weldon Sep 08, 2017 11:03
[2017-09-08] MEDS ORDERED: ASPIRIN EC 81 MG TABEC PO ONE (11:15)
[2017-09-08] MEDS ORDERED: POTASSIUM CHLORIDE 20 MEQ CONTROLLED RELEASE TAB PO ONE (11:15)
[2017-09-08] MEDS ORDERED: CYANOCOBALAMIN 1000 MCG/ML VIAL SQ SCH (12:00)
[2017-09-08] MEDS ORDERED: SERT25TA83 PO (12:13)
[2017-09-08 12:21] VITALS: BP 120/58; PULSE 80; RESP 18; TEMP 96.8; O2SAT 96
--- NOTE | 2017-09-08 12:34 | HHI.PR ---
Subjective Remarks Follow-up syncope/atypical chest pain 09/08/17-patient seen and examined, no syncopal episodes since admission. BP stable. Denies any chest or shortness of breath. Only complains of acute right hip pain and denies any trauma. Reports history of DJD. Was seen both by cardiology and neurology Objective Vitals Vital Signs Date Time Temp Pulse Resp B/P (MAP) Pulse Ox O2 Delivery O2 Flow Rate FiO2 09/08/17 08:24 98.2 80 20 120/58 (78) 95 09/08/17 06:47 57 09/08/17 04:51 98.7 56 18 107/55 (72) 98 09/08/17 01:38 98.2 64 18 111/58 (75) 98 09/07/17 20:09 98.4 55 18 96/52 (67) 99 102/55 (71) 116/61 (79) 09/07/17 15:28 98.5 58 20 125/66 (85) 99 141/70 (93) 128/75 (92) 09/07/17 15:00 49 I/O 09/07/17 09/07/17 09/07/17 09/08/17 09/08/17 09/08/17 07:00 15:00 23:00 07:00 15:00 23:00 # Voids 2 Result Diagram: 09/08/17 0930 09/08/17 0930 Imaging Last Impressions Thoracic Spine MRI 09/07/17819 Signed Impressions: Service Date/Time: August 12:17 - CONCLUSION: Normal examination. Boyd Hawkins Jr., MD Cervical Spine MRI 09/07/17819 Signed Impressions: Service Date/Time: August 12:17 - CONCLUSION: 1. Normal signal throughout the cord. 2. Degenerative changes most pronounced at C5-C6 with a left paracentral protrusion that just touches the ventral portion of the cord. Boyd Hawkins Jr., MD Brain MRI 09/07/17819 Signed Impressions: Service Date/Time: August 12:17 - CONCLUSION: 1. Scattered areas of white matter disease most likely related to microvascular ischemic demyelinative change. No acute abnormality identified. No enhancing lesion identified. The exam is stable compared to previous dated 03/02/16. Jc May MD Head Magnetic Resonance Angiography 09/07/17 0000 Signed Impressions: Service Date/Time: August 12:17 - CONCLUSION: No acute [place] vascular findings Avery Yao MD Cervical Spine CT 09/06/17 1653 Signed Impressions: Service Date/Time: Wednesday, September 06, 2017 17:15 - CONCLUSION: C5-C6 disc protrusion as described above central to left-sided. Asael May MD FACR Head CT 09/06/17 1649 Signed Impressions: Service Date/Time: Wednesday, September 06, 2017 17:15 - CONCLUSION: No acute disease. Asael May MD FACR Chest X-Ray [id number]/06/[id number] Signed Impressions: Service Date/Time: Wednesday, September 06, 2017 16:58 - CONCLUSION: No acute disease. Asael May MD FACR Carotid Artery Ultrasound 09/06/17 0000 Signed Impressions: Service Date/Time: Wednesday, September 06, 2017 21:30 - CONCLUSION: 1. There appears to be bidirectional flow in the diminutive right vertebral. Findings could be indicative of a proximal high-grade stenosis of this vessel. 2. However, the patient appears to be left vertebral dominant. The left vertebral and both carotids appear to be widely patent with no significant stenosis. Yan Telles MD Objective Remarks GENERAL: NAD SKIN: Warm and dry. HEAD: Normocephalic. EYES: No scleral icterus. No injection or drainage. NECK: Supple, trachea midline. No JVD or lymphadenopathy. CARDIOVASCULAR: Regular rate and rhythm without murmurs, gallops, or rubs. RESPIRATORY: Breath sounds equal bilaterally. No accessory muscle use. GASTROINTESTINAL: Abdomen soft, non-tender, nondistended. MUSCULOSKELETAL: No cyanosis, or edema. TTP RLE BACK: Nontender without obvious deformity. No CVA tenderness. A/P Problem List: (1) Syncope ICD Code: R55 - Syncope and collapse (2) Chest pain ICD Code: R07.9 - Chest pain, unspecified Status: Acute Assessment and Plan 61 year-old female with Syncope Brain MRI noted and review by me with finding of white matter disease however stable from previous studies Brain MRA noted and review by me and negative Carotid ultrasounds unremarkable Appreciate input from neurology Appreciate input from cardiology however recommends outpatient Holter monitoring Atypical chest pain ACS ruled out per protocol with serial cardiac enzyme and EKGs 2-D echo with EF with of 55-60% Appreciate input from cardiology Continue with aspirin Outpatient Holter monitoring Hypertension Currently normotensive on Norvasc 5 mg daily Patient advised on not mixing narcotics with BP meds Hyperlipidemia LDL 111 Start Lipitor 10 mg at bedtime Right hip pain Acute onset, etiology? Right hip MRI pending and if negative patient will be discharged home PT consult to treat and eval HSV Continue maintenance therapy with Zovirax DVT prophylaxis: Lovenox Discharge Planning Discharge patient to home Condition on discharge: Improved Regular Diet as tolerated Ad Madelaine activity Rx written:see EMR Follow-up with primary care physician in 1 week Cardiology in 2 weeks Neurology when necessary Problem Qualifiers (1) Syncope: Qualified Codes: R55 - Syncope and collapse Willi Koenig MD Sep 08, 2017 12:34
[2017-09-08] MEDS ORDERED: ECASA81 PO (12:35)
[2017-09-08] MEDS ORDERED: LIPI10TA PO (12:39)
--- NOTE | 2017-09-08 17:41 | RADRPT ---
EXAM DATE/TIME: 09/08/2017 15:40 [facility] COMPARISON: No previous studies available for comparison. INDICATIONS : Right hip pain. MEDICAL HISTORY : Hypertension. SURGICAL HISTORY : Hysterectomy. Inguinal hernia repair. ENCOUNTER: Initial ACUITY: 1 day PAIN SCORE: 4/10 LOCATION: Right hip TECHNIQUE: Multiplanar, multisequence MRI examination was performed without contrast. FINDINGS: BONE/CARTILAGE: Bone marrow signal is homogeneous. Articular cartilage signal is within normal limits. LABRUM: Within normal limits. MUSCLES/TENDONS: All of the visualized muscles and tendons are intact. MISCELLANEOUS: No evidence of joint effusion. CONCLUSION: Negative, I do not see as source of pain. Further evaluation suggested. Asael May MD FACR on September 08, 2017 at 17:37 Board Certified Radiologist. This report was verified electronically.
[2017-09-09] MEDS ORDERED: ASPIRIN EC 81 MG TABEC PO SCH (09:00)
--- NOTE | 2017-09-10 23:47 | HM ---
Date Performed: 09/07/2017 Time Performed: 15:55:00 HOOKUP DATE: 09/07/17 03:55:00 PM [facility] ANALYSIS START TIME: 09/07/2017 4:00:00 PM ANALYSIS END TIME: 09/08/2017 2:47:27 PM PATIENT AGE: 61 PATIENT HEIGHT: 60 PATIENT WEIGHT: 121 DRUG LIST: ROOM F68 PATIENT DIAGNOSIS: TIA CERVICAL RADICULOPATHY TEST NARRATIVE: The patient's average heart rate was 56 BPM. No episodes of tachycardia wer e noted. Heart rates less than 50 BPM were noted 46% of the time. No pauses exceeding 2.0 second s were noted. 4 ventricular ectopics, which represented < 1% of the total beat count, were noted. The highest ventricular ectopic frequency occurred from 05:00 PM to 06:00 PM [facility]. During this time 1 VE(s) occurred. Ventricular ectopics were observed as 4 isolated beat(s) only. No couplets or ru ns were noted. 1 supraventricular ectopics, which represented < 1% of the total beat count, were noted. The highest supraventricular ectopic frequency occurred from 12:00 AM to 01:00 AM FriTyler Karimi g this time 1 SVE(s) occurred. No episodes of ST depression (defined as -1.0 mm or more) were not ed in channel 1. No episodes of ST depression (defined as -1.0 mm or more) were noted in channel 2. No episodes of ST depression (defined as -1.0 mm or more) were noted in channel 3. TEST INTERPRETATION: 1. Predominant underlying rhythm is Sinus rhythm 2. Occasional PAC and Occasional PVC 3. NO pauses of > 2 sec notes 4. No ventricular or supraventric ular tachyarrythmias noted 5. No cardiac symptoms noted during the recorded time interval Signed by : Philippe Covarrubias
== END 2017-09-08 19:34 | disposition home or self-care (01) ==
LOC: NEPE 15:15 → NEDA 19:31 → NEPFCDU 21:00
PROVIDERS: ADMIT Hospitalist; ATTEND Hospitalist
DX: R55 Syncope and collapse (principal); E87.6 Hypokalemia; R11.0 Nausea; R42 Dizziness and giddiness; M25.551 Pain in right hip; R29.2 Abnormal reflex; H53.489 Generalized contraction of visual field, unspecified eye; I11.9 Hypertensive heart disease without heart failure; J43.9 Emphysema, unspecified; J45.909 Unspecified asthma, uncomplicated; E78.00 Pure hypercholesterolemia, unspecified; M48.02 Spinal stenosis, cervical region; M50.122 Cervical disc disorder at C5-C6 level with radiculopathy; K21.9 Gastro-esophageal reflux disease without esophagitis; F32.9 Major depressive disorder, single episode, unspecified; F41.9 Anxiety disorder, unspecified; M19.90 Unspecified osteoarthritis, unspecified site; Z79.899 Other long term (current) drug therapy; Z87.11 Personal history of peptic ulcer disease; W18.30XA Fall on same level, unspecified, initial encounter
CPT/HCPCS: 51702; 70450; 70544; 70553; 71010; 72125; 72156; 72157; 73721; 80048; 80053; 80061; 81001; 82607; 82948; 83036; 83735; 84100; 84425; 84484; 85025; 85610; 85652; 85730; 86592; 92610; 93005; 93225; 93226; 93306; 93880; 95819; 96360; 96372; 97110; 97162; 97167; 97530; 99285; A9579; G0378; G8987; G8988; G8996; G8997; G8998; J1650; J3420; J7030

== ENCOUNTER 2017-12-27 20:28 | Observation (INO) | payer OTHER ==
[~2017-12-27] VITALS: Ht 152.4 cm; Wt 50.0 kg
[~2017-12-27 20:28] MED LIST changes: -AMBI10TA PO; +ECASA81 PO; -LATA0.002 EACH EYE; +LIPI10TA PO; -MECL12.574 PO; +SERT25TA83 PO; -TIMO0.5S30 EACH EYE
[2017-12-27 20:37] VITALS: BP 118/66; PULSE 64; RESP 16; O2SAT 98
[2017-12-27] MEDS ORDERED: SODIUM CHLORIDE 0.9% FLUSH 10 ML FLUSH IVF PRN (21:30)
[2017-12-27] MEDS ORDERED: MORPHINE SULFATE 4 MG/ML INJ IV PUSH ONE (21:30)
[2017-12-27] MEDS ORDERED: ASPIRIN 81 MG CHEW TAB PO ONE (21:30)
[2017-12-27] MEDS ORDERED: NITROGLYCERIN 2% OINT 1 GM PACKET TOP ONE (21:30)
--- NOTE | 2017-12-27 21:41 | PD ---
HPI . Chest pain Chief Complaint: Chest Pain Time Seen by Provider: 21:22 Travel History International Travel<30 days: No Contact w/Intl Traveler<30days: No Traveled to known affect area: No History of Present Illness HPI This patient presents with a chief complaint of chest pain. Onset was 3 hours prior to presentation. She describes a pressure-like sensation which radiates to the left upper extremity and jaw. She rates it 9/10. She took 2 nitroglycerin at the onset of her pain with minimal relief and subsequent recurrence of the pain. She reports associated nausea and shortness of breath. In addition, she is complaining with dizziness. She describes vertigo. Started yesterday. CBC Diagram 12/27/17 21:20 BMP Diagram 12/27/17 22:09 Calcium Level 9.1, Magnesium Level 2.4 trop < 0.02 Last Impressions Chest X-Ray 12/27/172123 Signed Impressions: Service Date/Time: Wednesday, December 27, 2017 21:42 - CONCLUSION: No acute disease. Hector Bates MD I will admit her to the chest pain center for further evaluation [facility] Past Medical History Anemia: Yes Arthritis: Yes (osterarthritis) Asthma: Yes Autoimmune Disease: No Blood Disorders: No Anxiety: Yes Depression: Yes Heart Rhythm Problems: Yes (MURMUR) Cancer: No Cardiac Catheterization: No Cardiovascular Problems: Yes (HBP) High Cholesterol: No Chest Pain: Yes Congestive Heart Failure: No COPD: No Cerebrovascular Accident: No Diabetes: No Diminished Hearing: No Endocrine: No Gastrointestinal Disorders: Yes (CHOLECYSTITIS) GERD: Yes Genitourinary: No Hiatal Hernia: No Hypertension: Yes Immune Disorder: No Implanted Vascular Access Dvce: No Musculoskeletal: Yes Neurologic: Yes Psychiatric: Yes Reproductive: Yes Respiratory: Yes Immunizations Current: Yes Migraines: Yes Pancreatitis: Yes (1999) Seizures: No Sleep Apnea: No Thyroid Disease: No Ulcer: Yes Menopausal: Yes : 4 Para: 2 Miscarriage: 0 : 2 Past Surgical History Abdominal Surgery: Yes (hernia repair) Body Medical Devices: DENIES Cardiac Surgery: No Section: Yes Coronary Artery Bypass Graft: No Ear Surgery: No Endocrine Surgery: No Eye Surgery: No Genitourinary Surgery: No Gynecologic Surgery: Yes (partial hysterectomy, c section) Hysterectomy: Yes Neurologic Surgery: No Oral Surgery: No Thoracic Surgery: No Other Surgery: Yes (BENIGN TUMOR REMOVED FROM BREAST) Family History Family Myocardial Infarction: Yes (MOTHER & FATHER) Social History Alcohol Use: No Tobacco Use: No Substance Use: No Allergies-Medications (Allergen,Severity, Reaction): Coded Allergies: naproxen (Verified Adverse Reaction, Severe, NAUSEA, 12/27/17) Reported Meds & Prescriptions Reported Meds & Active Scripts Active Aspirin DR (Aspirin) 81 Mg Tabdr 81 Mg PO DAILY Reported Sertraline (Sertraline HCl) 25 Mg Tab 25 Mg PO DAILY Alphagan P Opth Drops (Brimonidine Tartrate) Unknown Strength Soln 1 Drop EACH EYE TID Acyclovir 400 Mg Tab 400 Mg PO BID Amlodipine (Amlodipine Besylate) 5 Mg Tab 5 Mg PO DAILY Nitrostat SL (Nitroglycerin) 0.4 Mg Subl 0.4 Mg SL DIRECTED PRN 1 tablet under the tongue as needed for chest pain. Repeat every 5 minutes for a total of 3 DOSES or call 911 if NO relief. Review of Systems Except as stated in HPI: all other systems reviewed are Neg Physical Exam Narrative GENERAL: Awake and alert and in no acute distress. SKIN: warm/dry. HEAD: Normocephalic. Atraumatic. EYES: Pupils equal and round. No scleral icterus. No injection or drainage. ENT: No nasal bleeding or discharge. Mucous membranes pink and moist. NECK: Trachea midline. Full range of motion without pain.. CARDIOVASCULAR: Regular rate and rhythm. Heart sounds normal. RESPIRATORY: No accessory muscle use. Clear to auscultation. Breath sounds equal bilaterally. GASTROINTESTINAL: Abdomen soft. Nontender. Bowel sounds present. Nondistended. MUSCULOSKELETAL: No obvious deformities. NEUROLOGICAL: Awake and alert. No obvious cranial nerve deficits. Motor grossly within normal limits. Normal speech. PSYCHIATRIC: Appropriate mood and affect; insight and judgment normal. Data Data Last Documented VS Vital Signs Date Time Temp Pulse Resp B/P (MAP) Pulse Ox O2 Delivery O2 Flow Rate FiO2 12/27/17 23:00 55 20 127/73 (91) 100 Room Air Orders Orders Basic Metabolic Panel (Bmp) (12/27/17 21:24) Complete Blood Count With Diff (12/27/17 21:24) Magnesium (Mg) (12/27/17 21:24) Prothrombin Time / Inr (Pt) (12/27/17 21:24) Act Partial Throm Time (Ptt) (12/27/17 21:24) Troponin I (12/27/17 21:24) Ecg Monitoring (12/27/17 21:24) Iv Access Insert/Monitor (12/27/17 21:24) Oximetry (12/27/17 21:24) Aspirin Chew (Aspirin Chew) (12/27/17 21:30) Morphine Inj (Morphine Inj) (12/27/17 21:30) Nitroglycerin 2% Oint (Nitroglycerin 2% (12/27/17 21:30) Sodium Chloride 0.9% Flush (Ns Flush) (12/27/17 21:30) Chest, Pa & Lat (12/27/17 21:24) Labs Laboratory Tests Test 12/27/17 21:20 12/27/17 22:09 White Blood Count 5.6 TH/MM3 Red Blood Count 3.75 MIL/MM3 Hemoglobin 11.9 GM/DL Hematocrit 35.3 % Mean Corpuscular Volume 94.2 FL Mean Corpuscular Hemoglobin 31.8 PG Mean Corpuscular Hemoglobin Concent 33.8 % Red Cell Distribution Width 14.1 % Platelet Count 280 TH/MM3 Mean Platelet Volume 8.7 FL Neutrophils (%) (Auto) 30.2 % Lymphocytes (%) (Auto) 53.2 % Monocytes (%) (Auto) 9.8 % Eosinophils (%) (Auto) 5.6 % Basophils (%) (Auto) 1.2 % Neutrophils # (Auto) 1.7 TH/MM3 Lymphocytes # (Auto) 3.0 TH/MM3 Monocytes # (Auto) 0.5 TH/MM3 Eosinophils # (Auto) 0.3 TH/MM3 Basophils # (Auto) 0.1 TH/MM3 CBC Comment DIFF FINAL Differential Comment Prothrombin Time 10.0 SEC Prothromb Time International Ratio 1.0 RATIO Activated Partial Thromboplast Time 23.6 SEC Blood Urea Nitrogen 14 MG/DL Creatinine 1.29 MG/DL Random Glucose 91 MG/DL Calcium Level 9.1 MG/DL Magnesium Level 2.4 MG/DL Sodium Level 144 MEQ/L Potassium Level 4.0 MEQ/L Chloride Level 108 MEQ/L Carbon Dioxide Level 27.1 MEQ/L Anion Gap 9 MEQ/L Estimat Glomerular Filtration Rate 51 ML/MIN Troponin I LESS THAN 0.02 NG/ML MDM Medical Decision Making Medical Screen Exam Complete: Yes Emergency Medical Condition: Yes Medical Record Reviewed: Yes (medical history significant for hypertension, ACS , vertigo. She also has "chronic chest pain" in her list of problems.) Interpretation(s) EKG is normal except for sinus bradycardia. Differential Diagnosis Differential diagnosis of chest pain includes but is not limited to musculoskeletal pain, pulmonary embolism, acute coronary syndrome, pneumonia, pleurisy Narrative Course This patient presents with the chief complaint of chest pain. This started 3 hours prior to presentation and was initially temporarily partially relieved by nitroglycerin. Subsequently recurred. She has not taken any further nitroglycerin. Cardiac workup is in progress. I have ordered aspirin, Nitropaste and morphine for her. The patient is also complaining with some dizziness which she describes as vertigo. She has a history of this and was evaluated for this in August when she presented with a syncopal episode. Diagnosis Primary Impression: Chest pain Qualified Codes: R07.9 - Chest pain, unspecified Additional Impression: Vertigo Admitting Information Admitting Physician Requests: Observation Condition: Stable Larissa Farias MD Dec 27, 2017 21:41
[2017-12-27 21:49] LABS: AUTOMATED NEUTROPHIL # 1.7 TH/MM3 (1.8-7.7); BASOPHIL # 0.1 TH/MM3 (0-0.2); BASOPHIL % 1.2 % (0.0-2.0); EOSINOPHIL # 0.3 TH/MM3 (0-0.4); EOSINOPHIL % 5.6 % (0.0-4.0); HEMATOCRIT 35.3 % (35.0-46.0); HEMOGLOBIN 11.9 GM/DL (11.6-15.3); LYMPH % 53.2 % (9.0-44.0); MEAN CELL VOLUME 94.2 FL (80.0-100.0); MEAN CORPUSCULAR HEMOGLOBIN 31.8 PG (27.0-34.0); MEAN CORPUSCULAR HGB CONC 33.8 % (32.0-36.0); MEAN PLATELET VOLUME 8.7 FL (7.0-11.0); MONO % 9.8 % (0.0-8.0); MONOCYTE # 0.5 TH/MM3 (0-0.9); NEUT % 30.2 % (16.0-70.0); PLATELET COUNT 280 TH/MM3 (150-450); RED BLOOD COUNT 3.75 MIL/MM3 (4.00-5.30); RED CELL DISTRIBUTION WIDTH 14.1 % (11.6-17.2); WHITE BLOOD COUNT 5.6 TH/MM3 (4.0-11.0)
--- NOTE | 2017-12-27 22:20 | RADRPT ---
EXAM DATE/TIME: 12/27/2017 21:42 [facility] COMPARISON: No previous studies available for comparison. INDICATIONS : Chest pain and short of breath today. MEDICAL HISTORY : Hypertension. Atrial fibrillation. SURGICAL HISTORY : Hysterectomy. Inguinal hernia repair. ENCOUNTER: Initial ACUITY: 1 day PAIN SCORE: 5/10 LOCATION: Bilateral chest FINDINGS: PA and lateral views of the chest demonstrate the lungs to be symmetrically aerated without evidence of mass, infiltrate or effusion. The cardiomediastinal contours are unremarkable. Osseous structure s are intact. CONCLUSION: No acute disease. Hector Bates MD on December 27, 2017 at 22:17 Board Certified Radiologist. This report was verified electronically.
[2017-12-27 22:35] VITALS: BP 125/75; PULSE 55; RESP 16; O2SAT 100
[2017-12-27 22:51] LABS: TROPONIN I LESS THAN 0.02 NG/ML (0.02-0.05)
[2017-12-27 23:00] VITALS: BP 127/73; PULSE 55; RESP 20; O2SAT 100
[2017-12-27 23:05] LABS: BICARBONATE 27.1 MEQ/L (21.0-32.0); BLOOD UREA NITROGEN 14 MG/DL (7-18); CALCIUM 9.1 MG/DL (8.5-10.1); CHLORIDE 108 MEQ/L (98-107); CREATININE 1.29 MG/DL (0.50-1.00); GLOMERULAR FILTRATION RATE 51 ML/MIN (>89); GLUCOSE,RANDOM 91 MG/DL (74-106); MAGNESIUM 2.4 MG/DL (1.5-2.5); SODIUM (NA) 144 MEQ/L (136-145)
[2017-12-27] MEDS ORDERED: ONDANSETRON HCL 4 MG/2 ML VIAL IV PUSH PRN (23:30)
[2017-12-27] MEDS ORDERED: TEMAZEPAM 15 MG CAP PO PRN (23:30)
[2017-12-28] MEDS: NITROGLYCERIN 2% OINT 1 GM PACKET TOP SCH ×3 (00:17→12:25)
[2017-12-28 00:47] VITALS: BP 122/70; PULSE 54; RESP 16; O2SAT 100
[2017-12-28] MEDS: MORPHINE SULFATE 4 MG/ML INJ IV PUSH PRN ×3 (01:37→12:25)
[2017-12-28 02:16] LABS: TROPONIN I 0.02 NG/ML (0.02-0.05)
[2017-12-28 03:30] VITALS: BP 130/75; PULSE 50; RESP 18; O2SAT 100
[2017-12-28 04:46] LABS: TROPONIN I LESS THAN 0.02 NG/ML (0.02-0.05)
[2017-12-28 05:04] VITALS: BP 96/57; PULSE 58; RESP 18; O2SAT 100
[2017-12-28 08:31] VITALS: BP 116/76; PULSE 58; RESP 18; O2SAT 100
--- NOTE | 2017-12-28 08:32 | HHI.HP ---
HPI Service Chest pain center Primary Care Physician Unknown No current previous Dr. Ferris Chief Complaint Chest pain, dizziness, swollen eyes, head pain History of Present Illness The patient is an extremely poor and disoriented historian she has multiple complaints 1 of which is chest pain. She has multiple previous complaints of chest pain and approximately 2 years ago was taken to [facility] by Dr. Melchor and found to have tortuous but essentially normal coronary arteries. She now presents again with mid to left chest pain radiating to her arm and neck of many hours duration she thinks somewhat relieved by nitroglycerin the pain was fluctuating in severity described variously as a stabbing, light, heavy, pain associated with some nausea and shortness of breath. However she also complains of dizziness the day before (was in the emergency room in August for fainting) pain in her left head described as a sharp stabbing pain, swelling of her eyes, a different pain in the back of her neck described as a throbbing pain, and an episode of being unable to swallow about a week ago. She had been seeing Dr. Juan Carlos Ferris for many years and a call to Dr. Ferris revealed that most of her complaints are recurring and probably associated with "stress". She has been seen by 2 separate counselors in the past and still takes her medications but has not followed through with reestablishing with either a physician or counselor since being terminated with Dr. Ferris. Review of Systems ROS Limitations: Poor Historian HEENT: COMPLAINS OF: Lightheadedness Respiratory: COMPLAINS OF: See HPI Cardiovascular: COMPLAINS OF: See HPI Gastrointestinal: COMPLAINS OF: Nausea Psychiatric: COMPLAINS OF: Anxiety, Depression Past Family Social History Allergies: Coded Allergies: naproxen (Verified Adverse Reaction, Severe, NAUSEA, 12/27/17) Past Medical History Hypertension anxiety depression anemia arthritis asthma gallbladder disease GERD migraines Past Surgical History Hysterectomy Hernia repair Breast biopsy Reported Medications Reported Meds & Active Scripts Active Aspirin DR (Aspirin) 81 Mg Tabdr 81 Mg PO DAILY Reported Sertraline (Sertraline HCl) 25 Mg Tab 25 Mg PO DAILY Alphagan P Opth Drops (Brimonidine Tartrate) Unknown Strength Soln 1 Drop EACH EYE TID Acyclovir 400 Mg Tab 400 Mg PO BID Amlodipine (Amlodipine Besylate) 5 Mg Tab 5 Mg PO DAILY Nitrostat SL (Nitroglycerin) 0.4 Mg Subl 0.4 Mg SL DIRECTED PRN 1 tablet under the tongue as needed for chest pain. Repeat every 5 minutes for a total of 3 DOSES or call 911 if NO relief. Active Ordered Medications Current Medications Medications (Trade) Dose Ordered Sig/Jayjay Route Start Time Stop Time Status Last Admin (NS Flush) 2 ml UNSCH PRN IVF 12/27/17 21:30 (Morphine Inj) 2 mg Q4H PRN IV PUSH 12/27/17 23:30 12/28/17 01:37 (Zofran Inj) 4 mg Q6H PRN IV PUSH 12/27/17 23:30 (Nitroglycerin 2% Oint) 1 inch Q6HR TOP 12/28/17 00:00 12/28/17 00:17 (Aspirin) 325 mg DAILY PO 12/28/17 09:00 (Restoril) 15 mg HS PRN PO 12/27/17 23:30 Family History Mother age 65 heart disease Father living but has a coronary stent 4 siblings Social History No alcohol Tobacco No drugs Lives alone Physical Exam Vital Signs Vital Signs Date Time Temp Pulse Resp B/P (MAP) Pulse Ox O2 Delivery O2 Flow Rate FiO2 12/28/17 05:04 58 18 96/57 (70) 100 Room Air 12/28/17 03:30 50 18 130/75 (93) 100 12/28/17 00:47 54 16 122/70 (87) 100 Room Air 12/27/17 23:00 55 20 127/73 (91) 100 Room Air 12/27/17 22:35 16 100 Room Air 12/27/17 22:35 55 16 125/75 (92) 100 Room Air 12/27/17 20:37 64 16 118/66 (83) 98 Physical Exam GENERAL: Thin patient resting in bed with face partly covered and slow very soft responses to questions SKIN: Warm and dry. HEAD: Atraumatic. Normocephalic. EYES: PERRLA, EOMI, no injection or jaundice ENT: No nasal bleeding or discharge. Mucous membranes pink and moist. NECK: Trachea midline. No JVD. No masses nodes or bruits CARDIOVASCULAR: Regular rate and rhythm. PMI is not displaced no gallop rub or murmur RESPIRATORY: No accessory muscle use. Clear to auscultation. Breath sounds equal bilaterally. Moderately tender along left chest border GASTROINTESTINAL: Abdomen soft, very tender right upper quadrant but no guarding or rebound nondistended. Hepatic and splenic margins not enlarged. MUSCULOSKELETAL: Extremities without clubbing, cyanosis, or edema. No obvious deformities. NEUROLOGICAL: Awake and alert but slow to respond. No obvious cranial nerve deficits. Motor grossly within normal limits. Five out of 5 muscle strength in the arms and legs. Normal speech. PSYCHIATRIC: Depressed mood and affect; insight and judgment seem to be mildly impaired. Laboratory Laboratory Tests Test 12/27/17 21:20 12/27/17 22:09 12/28/17 01:30 12/28/17 03:30 White Blood Count 5.6 Red Blood Count 3.75 Hemoglobin 11.9 Hematocrit 35.3 Mean Corpuscular Volume 94.2 Mean Corpuscular Hemoglobin 31.8 Mean Corpuscular Hemoglobin Concent 33.8 Red Cell Distribution Width 14.1 Platelet Count 280 Mean Platelet Volume 8.7 Neutrophils (%) (Auto) 30.2 Lymphocytes (%) (Auto) 53.2 Monocytes (%) (Auto) 9.8 Eosinophils (%) (Auto) 5.6 Basophils (%) (Auto) 1.2 Neutrophils # (Auto) 1.7 Lymphocytes # (Auto) 3.0 Monocytes # (Auto) 0.5 Eosinophils # (Auto) 0.3 Basophils # (Auto) 0.1 CBC Comment DIFF FINAL Differential Comment Prothrombin Time 10.0 Prothromb Time International Ratio 1.0 Activated Partial Thromboplast Time 23.6 Blood Urea Nitrogen 14 Creatinine 1.29 Random Glucose 91 Calcium Level 9.1 Magnesium Level 2.4 Sodium Level 144 Potassium Level 4.0 Chloride Level 108 Carbon Dioxide Level 27.1 Anion Gap 9 Estimat Glomerular Filtration Rate 51 Troponin I LESS THAN 0.02 0.02 LESS THAN 0.02 Total Creatine Kinase 104 92 Creatine Kinase MB LESS THAN 0.5 Result Diagram: 12/27/17211912/27/172208 Imaging Chest x-ray unremarkable Course Patient has ruled out for ACS with 3 sets of troponins and negative EKG She had a catheterization less than 2 years ago which showed no obstructive disease in much of her current presentation appears to be stress related as has been noted in the past. She is not stable for an exercise stress test and nuclear stress test is probably not warranted in view of her recent negative cath. She needs outpatient follow-up with a general physician and apparently has insurance but has failed to establish with a new physician. Dr. Ferris indicates that he has offered to sit down with her with a list of her potential doctors and he will purchase another doctor but she has not complied by doing so. He has also suggested [facility] as an option for her but she has not followed through with this either. Because of her abdominal pain and tenderness a flat and upright of the abdomen will be obtained but if this is negative she will be discharged to outpatient care. Caprini VTE Risk Assessment Caprini VTE Risk Assessment: No/Low Risk (score <= 1) Caprini Risk Assessment Model Point Value = 1 Point Value = 2 Point Value = 3 Point Value = 5 Age 41-60 Minor surgery BMI > 25 kg/m2 Swollen legs Varicose veins or History of unexplained or recurrent spontaneous Oral contraceptives or hormone replacement Sepsis (< 1 month) Serious lung disease, including pneumonia (< 1 month) Abnormal pulmonary function Acute myocardial infarction Congestive heart failure (< 1 month) History of inflammatory bowel disease Medical patient at bed rest Age 61-74 Arthroscopic surgery Major open surgery (> 45 min) Laparoscopic surgery (> 45 min) Malignancy Confined to bed (> 72 hours) Immobilizing plaster cast Central venous access Age >= 75 History of VTE Family history of VTE Factor V Leiden Prothrombin [id number] Lupus anticoagulant Anticardiolipin antibodies Elevated serum homocysteine Heparin-induced thrombocytopenia Other congenital or acquired thrombophilia Stroke (< 1 month) Elective arthroplasty Hip, pelvis, or leg fracture Acute spinal cord injury (< 1 month) Prophylaxis Regimen Total Risk Factor Score Risk Level Prophylaxis Regimen 0-1 Low Early ambulation 2 Moderate Order ONE of the following: *Sequential Compression Device (SCD) *Heparin 5000 units SQ BID 3-4 Higher Order ONE of the following medications: *Heparin 5000 units SQ TID *Enoxaparin/Lovenox 40 mg SQ daily (WT < 150 kg, CrCl > 30 mL/min) *Enoxaparin/Lovenox 30 mg SQ daily (WT < 150 kg, CrCl > 10-29 mL/min) *Enoxaparin/Lovenox 30 mg SQ BID (WT < 150 kg, CrCl > 30 mL/min) AND/OR *Sequential Compression Device (SCD) 5 or more Highest Order ONE of the following medications: *Heparin 5000 units SQ TID (Preferred with Epidurals) *Enoxaparin/Lovenox 40 mg SQ daily (WT < 150 kg, CrCl > 30 mL/min) *Enoxaparin/Lovenox 30 mg SQ daily (WT < 150 kg, CrCl > 10-29 mL/min) *Enoxaparin/Lovenox 30 mg SQ BID (WT < 150 kg, CrCl > 30 mL/min) AND *Sequential Compression Device (SCD) Cyril Rico MD Dec 28, 2017 08:32
[2017-12-28] MEDS ORDERED: ASPIRIN 325 MG TAB PO SCH (09:00)
--- NOTE | 2017-12-28 09:23 | RADRPT ---
EXAM DATE/TIME: 12/28/2017 08:39 [facility] COMPARISON: No previous studies available for comparison. INDICATIONS : Right side abdomen tenderness. MEDICAL HISTORY : Hypertension. Atrial fibrillation. SURGICAL HISTORY : Hysterectomy. Inguinal hernia repair. ENCOUNTER: Subsequent ACUITY: 2 days PAIN SCORE: 5/10 LOCATION: Right upper abdomen. FINDINGS: Supine and upright views of the abdomen were performed. The abdominal bowel gas pattern is normal. No air fluid levels are seen. No abnormal masses, calcifications, or organomegaly is seen. The visu alized lower lungs are clear. No evidence of free intraperitoneal gas. The osseous structures are u nremarkable. Ventral abnormal hernia repair is noted. Scattered phleboliths are noted within the pelv is. Mild scoliosis of the thoracolumbar spine is noted. CONCLUSION: 1. No bowel obstruction, ileus or perforation. 2. Mild scoliosis of the thoracolumbar spine. Darryl Bravo MD on December 28, 2017 at 9:19 Board Certified Radiologist. This report was verified electronically.
--- NOTE | 2017-12-28 10:35 | EKG ---
Date Performed: 12/28/2017 Time Performed: 05:29:20 PTAGE: 62 years EKG: SINUS BRADYCARDIA BORDERLINE ECG No significant change PREVIOUS TRACING : 12/28/2017 01.35 DOCTOR: Cyril Rico Interpretating Date/Time 01/01/2018 07:05:09
--- NOTE | 2017-12-28 10:37 | EKG ---
Date Performed: 12/28/2017 Time Performed: 01:35:51 PTAGE: 62 years EKG: SINUS BRADYCARDIA BORDERLINE ECG No change PREVIOUS TRACING : 12/27/2017 20.42 DOCTOR: Cyril Rico Interpretating Date/Time 12/28/2017 10:36:12
--- NOTE | 2017-12-28 10:39 | EKG ---
Date Performed: 12/27/2017 Time Performed: 20:42:40 PTAGE: 62 years EKG: SINUS BRADYCARDIA BORDERLINE ECG No change PREVIOUS TRACING : 09/06/2017 17.57 DOCTOR: Cyril Rico Interpretating Date/Time 12/28/2017 10:37:52
[2017-12-28 11:01] VITALS: BP 145/70; PULSE 51; RESP 18; O2SAT 99
--- NOTE | 2017-12-28 11:31 | HHI.DCPOC ---
Discharge Care Plan Diagnosis: (1) Chest pain Goals to Promote Your Health * To prevent worsening of your condition and complications * To maintain your health at the optimal level Directions to Meet Your Goals Take your medications as prescribed Follow your dietary instruction Follow activity as directed Keep your appointments as scheduled Take your immunizations and boosters as scheduled If your symptoms worsen call your PCP, if no PCP go to Urgent Care Center or Emergency Room Smoking is Dangerous to Your Health. Avoid second hand smoke Call the 24-hour hour crisis hotline for domestic abuse at [facility] Dec 28, 2017 11:31
[2017-12-28] MEDS ORDERED: amLODIPine BESYLATE 5 MG TAB PO SCH (11:45)
[2017-12-28 15:21] VITALS: BP 95/57; PULSE 56; RESP 18; O2SAT 98
== END 2017-12-28 17:40 | disposition home or self-care (01) ==
LOC: NEPC 20:28 → NEDA 23:23 → NEDH 12-28 03:40
PROVIDERS: ADMIT Internal Medicine Cardiovascular Disease; ATTEND Internal Medicine Cardiovascular Disease
DX: R07.89 Other chest pain (principal); R42 Dizziness and giddiness; R51 Headache; R11.0 Nausea; R00.1 Bradycardia, unspecified; I10 Essential (primary) hypertension; J45.909 Unspecified asthma, uncomplicated; K21.9 Gastro-esophageal reflux disease without esophagitis; M41.85 Other forms of scoliosis, thoracolumbar region; F41.9 Anxiety disorder, unspecified; F32.9 Major depressive disorder, single episode, unspecified; M19.90 Unspecified osteoarthritis, unspecified site; Z79.899 Other long term (current) drug therapy; Z79.82 Long term (current) use of aspirin
CPT/HCPCS: 71046; 74019; 80048; 82550; 82552; 83735; 84484; 85025; 85610; 85730; 93005; 96374; 96376; 99285; G0378; J2270

== ENCOUNTER 2018-02-19 12:35 | Emergency (ER) | payer SELFPAY ==
[~2018-02-19] VITALS: Ht 152.4 cm; Wt 51.5 kg
[~2018-02-19 12:35] MED LIST changes: -LIPI10TA PO
[2018-02-19 12:53] VITALS: BP 137/63; PULSE 49; RESP 16; TEMP 98.7; O2SAT 99
[2018-02-19] MEDS ORDERED: SODIUM CHLORIDE 0.9% FLUSH 10 ML FLUSH IVF PRN (13:15)
[2018-02-19] MEDS ORDERED: KETOROLAC TROMETHAMINE 30 MG/ML (IVP) VIAL IV PUSH ONE (13:15)
[2018-02-19] MEDS ORDERED: ORPHENADRINE INJ 60 MG/2 ML AMP IM ONE (13:15)
--- NOTE | 2018-02-19 13:19 | PD ---
HPI Chief Complaint: General Weakness Time Seen by Provider: 12:59 Travel History International Travel<30 days: No Contact w/Intl Traveler<30days: No Traveled to known affect area: No History of Present Illness HPI 62-year-old female presents to the emergency department for evaluation of left lower back pain that radiates down the left leg to the foot for 2 days. She also reports generalized weakness and shortness of breath. She denies fevers. No chest pain. No abdominal pain. Nausea, vomiting, diarrhea. No loss of bowel or bladder control. No saddle anesthesias. Patient states she took her gabapentin which did not help her. She does state that she has had sciatica in the past. When asked what helps her, she states that Toradol will normally help her. Patient denies any syncope or dizziness. Current pain is 10/10 to the lower back that radiates down the left leg. Exacerbating factor is movement , ambulation. Relieving factor is laying still. Moderate severity. PFSH Past Medical History Anemia: Yes Arthritis: Yes (osterarthritis) Asthma: Yes Autoimmune Disease: No Blood Disorders: No Anxiety: Yes Depression: Yes Heart Rhythm Problems: Yes (MURMUR) Cancer: No Cardiac Catheterization: No Cardiovascular Problems: Yes (HBP) High Cholesterol: No Chest Pain: Yes Congestive Heart Failure: No COPD: No Cerebrovascular Accident: No Diabetes: No Diminished Hearing: No Endocrine: No Gastrointestinal Disorders: Yes (CHOLECYSTITIS) GERD: Yes Genitourinary: No Hiatal Hernia: No Hypertension: Yes Immune Disorder: No Implanted Vascular Access Dvce: No Musculoskeletal: Yes Neurologic: Yes Psychiatric: Yes Reproductive: Yes Respiratory: Yes Immunizations Current: Yes Migraines: Yes Pancreatitis: Yes (1999) Seizures: No Sleep Apnea: No Thyroid Disease: No Ulcer: Yes Menopausal: Yes : 4 Para: 2 Miscarriage: 0 : 2 Past Surgical History Abdominal Surgery: Yes (hernia repair) Body Medical Devices: DENIES Cardiac Surgery: No Section: Yes Coronary Artery Bypass Graft: No Ear Surgery: No Endocrine Surgery: No Eye Surgery: No Genitourinary Surgery: No Gynecologic Surgery: Yes (partial hysterectomy, c section) Hysterectomy: Yes Neurologic Surgery: No Oral Surgery: No Thoracic Surgery: No Other Surgery: Yes (BENIGN TUMOR REMOVED FROM BREAST) Social History Alcohol Use: No Tobacco Use: No Substance Use: No Allergies-Medications (Allergen,Severity, Reaction): Coded Allergies: naproxen (Verified Adverse Reaction, Severe, NAUSEA, 02/19/18) Reported Meds & Prescriptions Reported Meds & Active Scripts Active Robaxin (Methocarbamol) 500 Mg Tab 500 Mg PO TID PRN Tramadol (Tramadol HCl) 50 Mg Tab 50 Mg PO Q8H PRN Aspirin DR (Aspirin) 81 Mg Tabdr 81 Mg PO DAILY Reported Sertraline (Sertraline HCl) 25 Mg Tab 25 Mg PO DAILY Alphagan P Opth Drops (Brimonidine Tartrate) Unknown Strength Soln 1 Drop EACH EYE TID Acyclovir 400 Mg Tab 400 Mg PO BID Amlodipine (Amlodipine Besylate) 5 Mg Tab 5 Mg PO DAILY Nitrostat SL (Nitroglycerin) 0.4 Mg Subl 0.4 Mg SL DIRECTED PRN 1 tablet under the tongue as needed for chest pain. Repeat every 5 minutes for a total of 3 DOSES or call 911 if NO relief. Review of Systems Except as stated in HPI: all other systems reviewed are Neg Physical Exam Narrative GENERAL: Well-nourished, well-developed female patient, afebrile. SKIN: Focused skin assessment warm/dry. HEAD: Normocephalic. Atraumatic. EYES: No scleral icterus. No injection or drainage. NECK: Supple, trachea midline. No JVD or lymphadenopathy. CARDIOVASCULAR: Regular rate and rhythm without murmurs, gallops, or rubs. RESPIRATORY: Breath sounds equal bilaterally. No accessory muscle use. Lung sounds are clear to auscultation. GASTROINTESTINAL: Abdomen soft, non-tender, nondistended. MUSCULOSKELETAL: No cyanosis, or edema. Bilateral upper and lower extremity strength 5/5. All extremities are neurovascularly intact. BACK: Nontender without obvious deformity. No CVA tenderness. Straight leg raise is positive on the left side. No midline spinal tenderness. She has tenderness over the left lumbar paraspinal musculature. Data Data Last Documented VS Vital Signs Date Time Temp Pulse Resp B/P (MAP) Pulse Ox O2 Delivery O2 Flow Rate FiO2 02/19/18 14:44 18 02/19/18 13:29 100 Room Air 02/19/18 13:29 51 147/70 (95) 02/19/18 12:53 98.7 Orders Orders Electrocardiogram (02/19/18 13:14) Basic Metabolic Panel (Bmp) (02/19/18 13:14) Complete Blood Count With Diff (02/19/18 13:14) Magnesium (Mg) (02/19/18 13:14) Ckmb (Isoenzyme) Profile (02/19/18 13:14) Troponin I (02/19/18 13:14) Urinalysis - C+S If Indicated (02/19/18 13:14) Ecg Monitoring (02/19/18 13:14) Iv Access Insert/Monitor (02/19/18 13:14) Oximetry (02/19/18 13:14) Sodium Chloride 0.9% Flush (Ns Flush) (02/19/18 13:15) Ketorolac Inj (Toradol Inj) (02/19/18 13:15) Orphenadrine Inj (Norflex Inj) (02/19/18 13:15) CKMB (02/19/18 13:40) CKMB% (02/19/18 13:40) Foot, Complete ([id number]) (02/19/18 ) Tramadol (Ultram) (02/19/18 16:30) Splint Or Brace Apply/Monitor (02/19/18 17:54) Ed Discharge Order (02/19/18 18:05) Labs Laboratory Tests Test 02/19/18 13:40 02/19/18 14:33 White Blood Count 5.8 TH/MM3 Red Blood Count 3.97 MIL/MM3 Hemoglobin 12.6 GM/DL Hematocrit 37.1 % Mean Corpuscular Volume 93.2 FL Mean Corpuscular Hemoglobin 31.7 PG Mean Corpuscular Hemoglobin Concent 34.0 % Red Cell Distribution Width 14.0 % Platelet Count 268 TH/MM3 Mean Platelet Volume 7.7 FL Neutrophils (%) (Auto) 50.7 % Lymphocytes (%) (Auto) 33.7 % Monocytes (%) (Auto) 11.3 % Eosinophils (%) (Auto) 3.2 % Basophils (%) (Auto) 1.1 % Neutrophils # (Auto) 2.9 TH/MM3 Lymphocytes # (Auto) 2.0 TH/MM3 Monocytes # (Auto) 0.7 TH/MM3 Eosinophils # (Auto) 0.2 TH/MM3 Basophils # (Auto) 0.1 TH/MM3 CBC Comment DIFF FINAL Differential Comment Blood Urea Nitrogen 13 MG/DL Creatinine 1.14 MG/DL Random Glucose 89 MG/DL Calcium Level 9.6 MG/DL Magnesium Level 2.3 MG/DL Sodium Level 141 MEQ/L Potassium Level 4.3 MEQ/L Chloride Level 106 MEQ/L Carbon Dioxide Level 27.4 MEQ/L Anion Gap 8 MEQ/L Estimat Glomerular Filtration Rate 58 ML/MIN Total Creatine Kinase 129 U/L Creatine Kinase MB LESS THAN 0.5 NG/ML Troponin I LESS THAN 0.02 NG/ML Urine Color LIGHT-YELLOW Urine Turbidity CLEAR Urine pH 6.0 Urine Specific [place] 1.007 Urine Protein NEG mg/dL Urine Glucose (UA) NEG mg/dL Urine Ketones NEG mg/dL Urine Occult Blood NEG Urine Nitrite NEG Urine Bilirubin NEG Urine Urobilinogen LESS THAN 2.0 MG/DL Urine Leukocyte Esterase NEG Urine RBC LESS THAN 1 /hpf Urine WBC 1 /hpf Urine Squamous Epithelial Cells 1 /hpf Microscopic Urinalysis Comment CULT NOT INDICATED MDM Medical Decision Making Medical Screen Exam Complete: Yes Emergency Medical Condition: Yes Medical Record Reviewed: Yes Interpretation(s) x-ray left foot - CONCLUSION: 1. Mild calcaneal spurring. 2. Otherwise, no acute abnormality. Differential Diagnosis Sciatica versus electrolyte abnormality versus UTI Narrative Course 62-year-old female presents to the emergency department for evaluation of left lower back pain that radiates down the left leg as well as generalized weakness. Patient is bradycardic in triage. However, when reviewing chart, patient is chronically bradycardic. EKG, CBC, BMP, magnesium, CK, troponin, UA ordered and pending. Patient is given Toradol 30 mg IV, Norflex 60 mg IM for pain. EKG shows sinus bradycardia, heart rate 57, no acute ST changes. CBC shows no acute abnormality. BMP shows no acute abnormality. Magnesium is 2.3. CK is 129. Troponin is less than 0.02. UA is negative. Upon reassessment, patient complains of left foot pain. She is tender to palpation over left heel. I attempted to walk her, but she is stumbling due to her left foot pain. X-ray left foot is ordered. X-ray left foot shows Mild calcaneal spurring; Otherwise, no acute abnormality. Patient is provided Teodoro bandage to the left foot. She will be discharged short- term prescription for tramadol and Robaxin. She is encouraged to follow with her primary care physician. She is return here for any acute worsening of symptoms. The patient was discharged in stable condition with instructions, including return instructions and follow up instructions. Diagnosis Primary Impression: Sciatica Qualified Codes: M54.32 - Sciatica, left side Additional Impression: Heel spur Qualified Codes: M77.32 - Calcaneal spur, left foot Referrals: Primary Care Physician call for appointment Patient Instructions: General Instructions, Heel Spur (ED), Sciatica (ED) Additional Instructions: Heating pad on low for 20 minutes 4-5 times daily. Take tramadol as directed as needed for pain. Cautioned this can make you drowsy so do not drive after taking. Take Robaxin as directed as needed. Follow-up with your primary care physician. Return to the emergency department for any acute worsening of symptoms. Med/Other Pt SpecificInfo: Prescription(s) given Scripts Methocarbamol (Robaxin) 500 Mg Tab 500 MG PO TID Y for MUSCLE SPASM, #21 TAB 0 Refills Prov: Salma Baugh 02/19/18 Tramadol (Tramadol) 50 Mg Tab 50 MG PO Q8H Y for PAIN, #12 TAB 0 Refills Prov: Salma Baugh 02/19/18 Disposition: 01 DISCHARGE HOME Condition: Stable Salma Baugh February 19, 2018 13:19
[2018-02-19 13:29] VITALS: BP 147/70; PULSE 51; RESP 18; O2SAT 100
[2018-02-19 13:48] LABS: AUTOMATED NEUTROPHIL # 2.9 TH/MM3 (1.8-7.7); BASOPHIL # 0.1 TH/MM3 (0-0.2); BASOPHIL % 1.1 % (0.0-2.0); EOSINOPHIL # 0.2 TH/MM3 (0-0.4); EOSINOPHIL % 3.2 % (0.0-4.0); HEMATOCRIT 37.1 % (35.0-46.0); HEMOGLOBIN 12.6 GM/DL (11.6-15.3); LYMPH % 33.7 % (9.0-44.0); MEAN CELL VOLUME 93.2 FL (80.0-100.0); MEAN CORPUSCULAR HEMOGLOBIN 31.7 PG (27.0-34.0); MEAN PLATELET VOLUME 7.7 FL (7.0-11.0); MONO % 11.3 % (0.0-8.0); MONOCYTE # 0.7 TH/MM3 (0-0.9); NEUT % 50.7 % (16.0-70.0); PLATELET COUNT 268 TH/MM3 (150-450); RED BLOOD COUNT 3.97 MIL/MM3 (4.00-5.30); WHITE BLOOD COUNT 5.8 TH/MM3 (4.0-11.0)
[2018-02-19 14:23] LABS: BICARBONATE 27.4 MEQ/L (21.0-32.0); BLOOD UREA NITROGEN 13 MG/DL (7-18); CALCIUM 9.6 MG/DL (8.5-10.1); CHLORIDE 106 MEQ/L (98-107); CREATININE 1.14 MG/DL (0.50-1.00); GLOMERULAR FILTRATION RATE 58 ML/MIN (>89); GLUCOSE,RANDOM 89 MG/DL (74-106); MAGNESIUM 2.3 MG/DL (1.5-2.5); SODIUM (NA) 141 MEQ/L (136-145); TROPONIN I LESS THAN 0.02 NG/ML (0.02-0.05)
[2018-02-19 14:44] VITALS: RESP 18
[2018-02-19 14:58] LABS: BILIRUBIN, URINE NEG (NEG); BLOOD, URINE NEG (NEG); GLUCOSE,URINE NEG (NEG); KETONE, URINE NEG (NEG); NITRITE,URINE NEG (NEG); SQUAMOUS EPITHELIAL CELL URINE 1 /hpf (0-5); URINE COLOR LIGHT-YELLOW (YELLW/STRAW); URINE LEUKOCYTE ESTERASE NEG (NEG)
[2018-02-19] MEDS ORDERED: traMADol HCL 50 MG TAB PO ONE (16:30)
--- NOTE | 2018-02-19 17:50 | RADRPT ---
EXAM DATE/TIME: 02/19/2018 17:13 [facility] COMPARISON: No previous studies available for comparison. INDICATIONS : Left foot pain from unknown injury. MEDICAL HISTORY : None. SURGICAL HISTORY : None. ENCOUNTER: Initial ACUITY: 1 day PAIN SCORE: 6/10 LOCATION: Left foot. FINDINGS: Three view examination of the left foot demonstrates no soft tissue swelling, dislocation, or fractur e. The tarsal bones appear intact. The interphalangeal and metatarsophalangeal joints are intact. The calcaneus is intact. Mild plantar calcaneal spurring. Bony mineralization is normal. CONCLUSION: 1. Mild calcaneal spurring. 2. Otherwise, no acute abnormality. Suleiman Sahni MD on February 19, 2018 at 17:47 Board Certified Radiologist. This report was verified electronically.
[2018-02-19] MEDS ORDERED: TRAM50TA PO (18:01)
[2018-02-19] MEDS ORDERED: ROBA500T PO (18:01)
--- NOTE | 2018-02-20 09:39 | EKG ---
Date Performed: 02/19/2018 Time Performed: 13:50:20 PTAGE: 62 years EKG: SINUS BRADYCARDIA BORDERLINE ECG Since the PREVIOUS TRACING , no significant change noted PREVIOUS TRACIN12/28/2017 05.29 DOCTOR: Analilia Rush Interpretating Date/Time 02/20/2018 09:38:19
== END 2018-02-19 19:01 | disposition home or self-care (01) ==
LOC: NEPC 12:35
DX: M54.42 Lumbago with sciatica, left side (principal); M77.32 Calcaneal spur, left foot; R53.1 Weakness; R00.1 Bradycardia, unspecified
CPT/HCPCS: 73630; 80048; 81001; 82550; 82552; 83735; 84484; 85025; 93005; 96372; 96374; 99285; J1885; J2360

== ENCOUNTER 2018-05-23 15:13 | Observation (INO) ==
[2018-05-23] MEDS ORDERED: amLODIPine 5 MG Tablet PO ONE (16:30)
--- NOTE | 2018-05-23 16:35 | ED ---
HPI General Chief complaint: Chest Pain Stated complaint: SOB Time Seen by Provider: 05/23/18 16:16 Source: patient, RN notes reviewed and old records reviewed Mode of arrival: ambulatory History of Present Illness HPI narrative: 62yF presenting with chest pain. The patient states that this morning she began to have substernal chest pain "like indigestion" which radiates to her right neck and left shoulder, initially improved with nitroglycerin but now constant, moderate intensity, associated with lightheadedness, diaphoresis, dyspnea, and nausea. Denies fever or chills, cough , or vomiting. 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 History of HTN, HLD; family history significant for mother with IN in her 60s and father with CAD (unknown age of diagnosis). Related Data Allergies Allergy/AdvReac Type Severity Reaction Status Date / Time naproxen AdvReac Severe NAUSEA Verified 02/19/18 12:53 Review of Systems ROS: all other systems reviewed are negative Constitutional Denies fever(s) Eyes Denies blurry vision ENT Denies nasal congestion Cardiovascular Reports chest pain Respiratory Denies cough Gastrointestinal Denies nausea Genitourinary Denies dysuria Musculoskeletal Denies back pain Neurologic Denies confusion Psychiatric Denies confusion PMFSH History History Provided By: Patient Medical History Medical History Carpal tunnel syndrome (Acute) H/O: hysterectomy (Acute) HTN (hypertension) (Acute) Heart murmur (Acute) Social History Social History Substance History: No History of Abuse Smoking Status: Never smoker Tobacco Type: Cigarettes How Often Do You Have a Drink Containing Alcohol: Never Recent Travel in [facility] within the Last 8 Weeks: No Recent Out of Country Travel within the Last 8 Weeks: No Immunization History Tetanus Immunization: <5 Years Hx Influenza Vaccine This Season: Yes Exam Const General: healthy appearing and no acute distress HENMT Head: normocephalic and atraumatic Face and sinus: normal facial exam Eyes General: appearance normal, both eyes and all related structures Pupils: PERRL Chest Chest: normal inspection of the chest Resp Effort & Inspection: normal respiratory effort Auscultation: no rhonchi and no wheezes Cardio Rate: regular rate Rhythm: regular rhythm GI Inspection: non-distended Palpation: soft and nontender Skin General: no rashes or lesions noted Other: No diaphoresis Neuro General: alert, awake, oriented x3 and no focal motor deficits Psych Affect: normal affect Course Initial Documented Vital Signs Temperature 99.6 F 05/23/18 15:24 Pulse Rate 53 L 05/23/18 15:24 Respiratory Rate 18 05/23/18 15:24 Blood Pressure 150/70 H 05/23/18 15:24 Pulse Oximetry 98 05/23/18 15:24 Last Documented Vital Signs Temperature 99.6 F 05/23/18 15:24 Pulse Rate 52 L 05/23/18 17:50 Respiratory Rate 18 05/23/18 16:20 Blood Pressure 174/79 H 05/23/18 17:50 Pulse Oximetry 100 05/23/18 16:20 Clinical Decision Support HEART Score Questions History: Highly suspicious EKG: Normal Age: 45-64 years Risk Factors: 1-2 Risk Factors Initial Troponin: Normal Limit Heart Score HEART Score: 4 Medical Decision Making [facility] Narrative Medical decision making narrative: Assessment: 62yF presenting with chest pain Plan: EKG and monitor Labs ASA, nitro CXR Addendum: Patient's first troponin negative, CXR unremarkable, labs otherwise unremarkable. This patient cannot go home as she has chest pain with multiple risk factors (HEART score of 4); she will need cardiac monitoring, serial troponin measurements, and further workup. The patient understands and agrees with plan. Will place in chest pain center for observation. Medical Screen Exam Complete: Yes Emergency Medical Condition: Yes Medical Records Medical records reviewed: Yes I reviewed the patient's medical records. Patient seen in 12/2017 for chest pain, unclear what workup was performed Lab Data Lab results reviewed: Yes I reviewed the patient's lab results. Result diagrams: 05/23/18 16:50 05/23/18 16:50 Lab Results 05/23/18 05/23/18 05/23/18 Range/Units 16:30 16:50 16:50 WBC 5.0 (4.0-11.0) th/mm3 RBC 4.18 (4.00-5.30) mil/mm3 Hgb 13.0 (11.6-15.3) gm/dL Hct 39.0 (35.0-46.0) % MCV 93.4 (80.0-100.0) fL MCH 31.0 (27.0-34.0) pg MCHC 33.2 (32.0-36.0) % RDW 14.5 (11.6-17.2) % Plt Count 241 (150-450) th/mm3 MPV 8.1 (7.0-11.0) fL Neut % (Auto) 28.2 (16.0-70.0) % Lymph % (Auto) 56.5 H (9.0-44.0) % [place] % (Auto) 9.3 H (0.0-8.0) % Eos % (Auto) 4.7 H (0.0-4.0) % Baso % (Auto) 1.3 (0.0-2.0) % Neut # (Auto) 1.4 L (1.8-7.7) th/mm3 Lymph # (Auto) 2.8 (1.0-4.8) th/mm3 [place] # (Auto) 0.5 (0.0-0.9) th/mm3 Eos # (Auto) 0.2 (0.0-0.4) th/mm3 Baso # (Auto) 0.1 (0.0-0.2) th/mm3 WBC Differential . Differential Comment Auto diff final PT 10.3 (9.8-11.6) sec INR 1.0 Ratio APTT 25.0 (24.3-30.1) sec Sodium (136-145) meq/L Potassium (3.5-5.1) meq/L Chloride (98-107) meq/L Carbon Dioxide (21.0-32.0) meq/L Anion Gap (5-15) meq/L BUN (7-18) mg/dL Creatinine (0.50-1.00) mg/dL Estimated GFR (>89) mL/min POC Glucose 85 (68-110) mg/dl Random Glucose (74-106) mg/dL Calcium (8.5-10.1) mg/dL Troponin I (0.02-0.05) ng/mL 05/23/18 Range/Units 16:50 WBC (4.0-11.0) th/mm3 RBC (4.00-5.30) mil/mm3 Hgb (11.6-15.3) gm/dL Hct (35.0-46.0) % MCV (80.0-100.0) fL MCH (27.0-34.0) pg MCHC (32.0-36.0) % RDW (11.6-17.2) % Plt Count (150-450) th/mm3 MPV (7.0-11.0) fL Neut % (Auto) (16.0-70.0) % Lymph % (Auto) (9.0-44.0) % [place] % (Auto) (0.0-8.0) % Eos % (Auto) (0.0-4.0) % Baso % (Auto) (0.0-2.0) % Neut # (Auto) (1.8-7.7) th/mm3 Lymph # (Auto) (1.0-4.8) th/mm3 [place] # (Auto) (0.0-0.9) th/mm3 Eos # (Auto) (0.0-0.4) th/mm3 Baso # (Auto) (0.0-0.2) th/mm3 WBC Differential Differential Comment PT (9.8-11.6) sec INR Ratio APTT (24.3-30.1) sec Sodium 141 (136-145) meq/L Potassium 3.5 (3.5-5.1) meq/L Chloride 106 (98-107) meq/L Carbon Dioxide 25.7 (21.0-32.0) meq/L Anion Gap 9 (5-15) meq/L BUN 10 (7-18) mg/dL Creatinine 1.15 H (0.50-1.00) mg/dL Estimated GFR 58 L (>89) mL/min POC Glucose (68-110) mg/dl Random Glucose 77 (74-106) mg/dL Calcium 9.4 (8.5-10.1) mg/dL Troponin I Less than 0.02 L (0.02-0.05) ng/mL Imaging Data Radiologist's impression: Chest X-Ray 05/23/18 16:28 CONCLUSION: No acute cardiopulmonary process. No significant change from prior. ECG Data Attestation: I personally reviewed and interpreted this ECG as follows: Interpretation: Rate: 50 BPM Rhythm: Sinus [address]: Normal Intervals: Normal intervals, no blocks, QTc 400 ms Q waves: None T waves: Upright, no inversions ST segments: No elevations or depressions Impression: Non-specific EKG, no changes as compared to EKG from 02/19/2018. Discharge Plan Discharge Disposition Patient Disposition: 30 Still Patient Discharge Condition Condition: Good Discharge Details Diagnosis: Chest pain Physicians Team ED Provider: Mechelle Fuchs Primary Care Provider: Fortunato Nix Discharge Instructions Patient Printed Instructions: Chest Pain (ED) Discharge Interventions Interventions: Vital Signs Last Done: 05/23/18 17:50 Status ED Status: With Doctor
--- NOTE | 2018-05-23 16:43 | XR ---
EXAM DATE: 05/23/2018 4:40 PM EDT AGE/SEX: 62 years / Female INDICATIONS: Chest pain. CLINICAL DATA: This is the patient's initial encounter. Patient reports that signs and symptoms have been present for 1 day and indicates a pain score of 7/10. MEDICAL/SURGICAL HISTORY: Hypertension. Leaking heart valve. None. COMPARISON: [facility], CHEST PA & LAT, 12/27/2017. . FINDINGS: A single AP view of the chest demonstrates the lungs to be symmetrically aerated without evidence of mass, infiltrate or effusion. The cardiomediastinal contours are unremarkable. Osseous structures a re intact. CONCLUSION: No acute cardiopulmonary process. No significant change from prior. Electronically signed by: Yan Telles MD 05/23/2018 4:42 PM EDT
[2018-05-23 17:19] LABS: Baso # (Auto) 0.1 th/mm3 (0.0-0.2); Baso % (Auto) 1.3 % (0.0-2.0); Eos # (Auto) 0.2 th/mm3 (0.0-0.4); Eos % (Auto) 4.7 % (0.0-4.0); Lymph # (Auto) 2.8 th/mm3 (1.0-4.8); Lymph % (Auto) 56.5 % (9.0-44.0); Mean Corpuscular HGB Conc 33.2 % (32.0-36.0); Mean Corpuscular Volume 93.4 fL (80.0-100.0); Mean Platelet Volume 8.1 fL (7.0-11.0); Mono # (Auto) 0.5 th/mm3 (0.0-0.9); Mono % (Auto) 9.3 % (0.0-8.0); Neut # (Auto) 1.4 th/mm3 (1.8-7.7); Neut % (Auto) 28.2 % (16.0-70.0); Platelet Count 241 th/mm3 (150-450); Red Blood Count 4.18 mil/mm3 (4.00-5.30); Red Cell Distribution Width 14.5 % (11.6-17.2)
[2018-05-23 17:21] LABS: Prothrombin Time 10.3 sec (9.8-11.6)
[2018-05-23 17:47] LABS: Anion Gap 9 meq/L (5-15); Blood Urea Nitrogen 10 mg/dL (7-18); Calcium 9.4 mg/dL (8.5-10.1); Carbon Dioxide 25.7 meq/L (21.0-32.0); Chloride 106 meq/L (98-107); Glomerular Filtration Rate 58 mL/min (>89); Glucose,Random 77 mg/dL (74-106); Potassium 3.5 meq/L (3.5-5.1); Sodium 141 meq/L (136-145)
[2018-05-23] MEDS ORDERED: Labetalol HCl Inj 100 MG/20 ML Vial IV.PUSH PRN (19:38)
[2018-05-23] MEDS ORDERED: Acetaminophen 325 MG Tablet PO PRN (19:38)
[2018-05-23] MEDS: Morphine Sulfate Inj 2 MG/ML Vial IV.PUSH PRN (20:07)
[2018-05-24] MEDS: Morphine Sulfate Inj 2 MG/ML Vial IV.PUSH PRN (00:11)
--- NOTE | 2018-05-24 08:20 | P.HPCA ---
History of Present Illness Primary Care Physician: Fortunato Nix Chief Complaint: Chest pain History of Present Illness: 62 year old female with history of hypertension and chronic back pain presents emergency room for further evaluation of chest pain. Onset 2-3 days ago. Initially thought discomfort was indigestion. Location substernal. Characterizes pressure. Moderate to severe in intensity. Discomfort waxed and waned in intensity with occasional radiation to right side jaw and left arm described as sharp, intermittent pains. Associated symptoms include dyspnea and hurts to take a deep breath. Denies nausea, vomiting, or diaphoresis. No precipitating or relieving factors. 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 States wire bender hand informed her recent nuclear stress testing normal and echocardiogram revealed she had a "leaking heart valve." Endorses similar pain for years. Endorses multiple stress testing and hospital admissions for similar chest pain. Denies past cardiac catheterization or known coronary artery disease. No precipitating or relieving factors. Family history noncontributory for early onset cardiovascular disease. Lifelong non-smoker. No recent illness, fever, or injury. Patient is somewhat a poor historian. Past cardiac testing 10/23/2015 cardiac catheterization (Dr. Melchor) Summary 1. Severely tortuous, hypertensive coronary artery without any nonobstructive course, without any coronary artery disease. 2. Normal left tracheal or systolic function. - Diagnosis (1) Atypical chest pain (2) History of hypertension Review of Systems All other systems reviewed negative except as stated in HPI PMFSH - History History Provided By: Patient - Medical History Medical History: Medical History (Last Reviewed 05/24/18 @ 09:33 by MAGALI Ruvalcaba) Carpal tunnel syndrome H/O: hysterectomy HTN (hypertension) Heart murmur Heart valve problem - Surgical History Surgical History: Surgical History (Last Reviewed 05/24/18 @ 09:33 by MAGALI Ruvalcaba) H/O section Hx of hernia repair - Tobacco History Second Hand Smoke Exposure: No Tobacco Use In Past 30 Days: No Smoking Status: Never smoker Tobacco Type: Cigarettes - Alcohol History How Often Do You Have a Drink Containing Alcohol: Never - Substance Use History Substance History: No History of Abuse - Travel History History of Recent Travel: No Recent Travel in the [place] Within the Last 8 Weeks: No Recent Travel Out of the Country Within the Last 8 Weeks: No - Immunization History Tetanus Immunization: <5 Years Hx Influenza Vaccine This Season: Yes Medications and Allergies Active Medications: Active Medications Acetaminophen (Tylenol) 650 mg PO Q4H PRN PRN Reason: PAIN 1-10 AND/OR FEVER >101F Aspirin (Aspirin) 325 mg PO DAILY [facility] Labetalol HCl (Trandate Inj) 10 mg IV.PUSH Q4H PRN PRN Reason: HYPERTENSION Morphine Sulfate (Morphine Inj) 2 mg IV.PUSH Q4H PRN PRN Reason: PAIN 6-10;IF UNABLE TO TAKE PO Last Admin: 05/24/18 00:11 Dose: 2 mg Nitroglycerin (Nitrostat Sl) 0.4 mg SL Q5M PRN PRN Reason: CHEST PAIN Last Admin: 05/24/18 01:29 Dose: 0.4 mg Sodium Chloride (Ns Flush) 2 ml IV.FLUSH UNSCH PRN PRN Reason: FLUSH AFTER USING IV ACCESS Sodium Chloride (Ns Flush) 2 ml IV.FLUSH BID [facility] Last Admin: 05/23/18 20:45 Dose: 2 ml Sodium Chloride (Ns Flush) 2 ml IV.FLUSH PRN PRN PRN Reason: FLUSH AFTER USING IV ACCESS Allergies Allergy/AdvReac Type Severity Reaction Status Date / Time naproxen AdvReac Severe NAUSEA Verified 02/19/18 12:53 Home Medications Medication Instructions Recorded Confirmed Type amlodipine 5 mg PO DAILY 05/23/18 05/23/18 History gabapentin 300 mg PO HS 05/23/18 05/23/18 History sertraline 25 mg PO DAILY 05/23/18 05/23/18 History tramadol 50 mg PO Q8HR PRN 05/23/18 05/23/18 History zolpidem PO PRN PRN 05/23/18 History Exam Vital signs: Vital Signs 05/23/18 15:24 05/23/18 16:20 05/23/18 17:30 Temperature 99.6 F Pulse Rate 53 L 52 L Respiratory Rate 18 18 Blood Pressure 150/70 H 160/80 H Pulse Oximetry 98 100 97 05/23/18 17:50 05/23/18 19:07 05/23/18 20:17 Temperature Pulse Rate 52 L 65 Respiratory Rate 16 Blood Pressure 174/79 H 183/114 H 173/84 H Pulse Oximetry 97 05/23/18 20:49 05/23/18 22:00 05/24/18 00:00 Temperature 98.5 F 98.3 F Pulse Rate 66 46 L 47 L Respiratory Rate 12 16 Blood Pressure 125/71 125/72 Pulse Oximetry 99 100 05/24/18 06:20 Temperature 98 F Pulse Rate 50 L Respiratory Rate 18 Blood Pressure 115/57 L Pulse Oximetry 97 Intake & Output 05/23/18 05/24/18 05/24/18 18:59 06:59 18:59 Weight 54.431 kg 55.5 kg Other: # Voids 4 Weight On Admission 55.5 kg Narrative: GENERAL: Alert WN, WD, NAD, very pleasant, -[place] female HEAD: NC, AT CV: RRR, without murmur, rub, or gallop. No carotid bruits. Chest wall nontender with palpation. RESP: Clear lungs throughout bilateral, no crackles, wheeze, rhonchi, symmetrical chest rise, nonlabored, able to speak in full sentences ABD: Soft, NT, ND, no masses, positive bowel tones EXT: Pulses +2x4, no dependent edema MS: Normal tone x4 extremities, nontender, no obvious deformities, full range of motion, right wrist brace in place NEURO: CN II through CN XII grossly intact, motor strength 5/5 PSYCH: A+O x3, pleasant affect, appropriate speech, mood, insight and judgment SKIN: Normal turgor, normal texture, no lesions, no rashes, brisk cap refill Results 05/23/18 16:50 05/23/18 16:50 Cardiac Enzymes 05/23/18 05/23/18 05/23/18 Range/Units 16:50 20:05 22:55 Troponin I Less than 0.02 L 0.03 0.04 (0.02-0.05) ng/mL Coagulation 05/23/18 Range/Units 16:50 PT 10.3 (9.8-11.6) sec APTT 25.0 (24.3-30.1) sec CBC 05/23/18 Range/Units 16:50 WBC 5.0 (4.0-11.0) th/mm3 RBC 4.18 (4.00-5.30) mil/mm3 Hgb 13.0 (11.6-15.3) gm/dL Hct 39.0 (35.0-46.0) % Plt Count 241 (150-450) th/mm3 Neut # (Auto) 1.4 L (1.8-7.7) th/mm3 Lymph # (Auto) 2.8 (1.0-4.8) th/mm3 [place] # (Auto) 0.5 (0.0-0.9) th/mm3 Eos # (Auto) 0.2 (0.0-0.4) th/mm3 Baso # (Auto) 0.1 (0.0-0.2) th/mm3 Comprehensive Metabolic Panel 05/23/18 Range/Units 16:50 Sodium 141 (136-145) meq/L Potassium 3.5 (3.5-5.1) meq/L Chloride 106 (98-107) meq/L Carbon Dioxide 25.7 (21.0-32.0) meq/L BUN 10 (7-18) mg/dL Creatinine 1.15 H (0.50-1.00) mg/dL Calcium 9.4 (8.5-10.1) mg/dL Intake and Output 05/23/18 05/24/18 05/24/18 22:59 06:59 14:59 Other: # Voids 4 Weight 55.5 kg Weight On Admission 55.5 kg EKG interpretations - EKG EKG results cardiology: sinus rhythm, normal axis, normal QRS, normal ST/T (NSB , no st t segment changes) Caprini VTE Risk Assessment Caprini VTE Risk Assessment: Moderate/High Risk (score >= 2) Caprini Risk Assessment Model: Point Value = 1 Point Value = 2 Point Value = 3 Point Value = 5 Age 41-60 Minor surgery BMI > 25 kg/m2 Swollen legs Varicose veins or History of unexplained or recurrent spontaneous Oral contraceptives or hormone replacement Sepsis (< 1 month) Serious lung disease, including pneumonia (< 1 month) Abnormal pulmonary function Acute myocardial infarction Congestive heart failure (< 1 month) History of inflammatory bowel disease Medical patient at bed rest Age 61-74 Arthroscopic surgery Major open surgery (> 45 min) Laparoscopic surgery (> 45 min) Malignancy Confined to bed (> 72 hours) Immobilizing plaster cast Central venous access Age >= 75 History of VTE Family history of VTE Factor V Leiden Prothrombin [id number] Lupus anticoagulant Anticardiolipin antibodies Elevated serum homocysteine Heparin-induced thrombocytopenia Other congenital or acquired thrombophilia Stroke (< 1 month) Elective arthroplasty Hip, pelvis, or leg fracture Acute spinal cord injury (< 1 month) Prophylaxis Regimen: Total Risk Factor Score Risk Level Prophylaxis Regimen 0-1 Low Early ambulation 2 Moderate Order ONE of the following: *Sequential Compression Device (SCD) *Heparin 5000 units SQ BID 3-4 Higher Order ONE of the following medications: *Heparin 5000 units SQ TID *Enoxaparin/Lovenox 40 mg SQ daily (WT < 150 kg, CrCl > 30 mL/min) *Enoxaparin/Lovenox 30 mg SQ daily (WT < 150 kg, CrCl > 10-29 mL/min) *Enoxaparin/Lovenox 30 mg SQ BID (WT < 150 kg, CrCl > 30 mL/min) AND/OR *Sequential Compression Device (SCD) 5 or more Highest Order ONE of the following medications: *Heparin 5000 units SQ TID (Preferred with Epidurals) *Enoxaparin/Lovenox 40 mg SQ daily (WT < 150 kg, CrCl > 30 mL/min) *Enoxaparin/Lovenox 30 mg SQ daily (WT < 150 kg, CrCl > 10-29 mL/min) *Enoxaparin/Lovenox 30 mg SQ BID (WT < 150 kg, CrCl > 30 mL/min) AND *Sequential Compression Device (SCD) Assessment and Plan - Assessment (1) Atypical chest pain Code(s): R07.89 - Other chest pain Status: Acute Plan: Admitted to chest pain center. ACS ruled out 3 sets of EKGs and cardiac enzymes. Recently completed nuclear stress test with her wire bender hand within the last 2 weeks, reported to be normal. Will be seen and evaluated by Dr. Cyril Rico. Further recommendation to follow. [address] Jurgen aguero MD updated on patients admission to chest pain center. Dr. Jurgen irvin with discharge, due to recent cardiac testing and ACS ruled out. Request follow up appointment in one week. (2) History of hypertension Code(s): Z86.79 - Personal history of other diseases of the circulatory system Status: Chronic Plan: Continue to monitor. Continue amlodipine. H&P: Quality - VTE Deep Vein Thrombosis/Pulmonary Embolism Present on Admission: No
[2018-05-24 09:00] VITALS: RESP 16
[2018-05-24] MEDS ORDERED: Aspirin 325 MG Tablet PO SCH (09:00)
[2018-05-24] MEDS ORDERED: Sertraline 50 MG Tablet PO SCH (09:30)
[2018-05-24] MEDS ORDERED: amLODIPine 5 MG Tablet PO SCH (09:30)
--- NOTE | 2018-05-24 10:39 | P.PNCA ---
Subjective Interval history: Patient was presented by the nurse practitioner. She is a very pleasant 62-year -old black lady with a long history of chest pain dating back over years. She is followed by Dr. Seaman on an outpatient basis and has recently undergone a nuclear stress test which was negative and full outpatient evaluation. Her pain is described as similar to indigestion and she has been evaluated with the GI evaluation in the distant past although she cannot remember any of the information. She has done better when she is on a PPI but ran out and has not been taking it recently. She seems to have difficulty believing that her chest pain is not her heart in spite of Dr. Seaman's evaluation and I believe that is probably why she is here today. I spent a fair amount of time with her explaining her negative cardiac evaluation and need for further GI evaluation. Also explained that further testing or evaluation at this time here would not be appropriate or warranted. Physical Exam Vital signs: Vital Signs 05/23/18 15:24 05/23/18 16:20 05/23/18 17:30 Temperature 99.6 F Pulse Rate 53 L 52 L Respiratory Rate 18 18 Blood Pressure 150/70 H 160/80 H Pulse Oximetry 98 100 97 05/23/18 17:50 05/23/18 19:07 05/23/18 20:17 Temperature Pulse Rate 52 L 65 Respiratory Rate 16 Blood Pressure 174/79 H 183/114 H 173/84 H Pulse Oximetry 97 05/23/18 20:49 05/23/18 22:00 05/24/18 00:00 Temperature 98.5 F 98.3 F Pulse Rate 66 46 L 47 L Respiratory Rate 12 16 Blood Pressure 125/71 125/72 Pulse Oximetry 99 100 05/24/18 06:20 05/24/18 08:00 Temperature 98 F 97.6 F Pulse Rate 50 L 50 L Respiratory Rate 18 16 Blood Pressure 115/57 L 115/59 L Pulse Oximetry 97 98 Intake & Output 05/23/18 05/24/18 05/24/18 18:59 06:59 18:59 Weight 54.431 kg 55.5 kg Other: # Voids 4 Weight On Admission 55.5 kg Narrative: Well-nourished well-developed pleasant lady resting comfortably in bed but still complaining of pain Neck supple no JVD masses nodes or bruits Chest clear to auscultation without rales wheezes or rhonchi Cardiovascular regular sinus rhythm no gallop rub or murmur The abdomen is diffusely tender in the mid epigastrium there is no guarding or rebound Assessment and Plan - Assessment (1) Atypical chest pain Code(s): R07.89 - Other chest pain Status: Acute Plan: Admitted to chest pain center. ACS ruled out 3 sets of EKGs and cardiac enzymes. 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 Will be seen and evaluated by Dr. Cyril Rico. Further recommendation to follow. [address] Seaman received. updated on patients admission to chest pain center. Dr. Seaman okay with discharge, due to recent cardiac testing and ACS ruled out. Request follow up appointment in one week. Per above documentation the patient will be discharged back to the care of her primary care physician with the recommendation that she undergo further GI evaluation and to Dr. Seaman for further discussion and reassurance regarding her cardiovascular workup (2) History of hypertension Code(s): Z86.79 - Personal history of other diseases of the circulatory system Status: Chronic Plan: Continue to monitor. Continue amlodipine.
--- NOTE | 2018-05-24 11:35 | ECG ---
Date Performed: 05/23/2018 Time Performed: 22:59:09 PTAGE: 62 years EKG: SINUS BRADYCARDIA WITH OCCASIONAL SUPRAVENTRICULAR PREMATURE COMPLEXES BORDERLINE ECG NO PREVIOUS TRACING DOCTOR: Cyril Rico Interpretating Date/Time 05/24/2018 11:33:43
--- NOTE | 2018-05-24 11:36 | ECG ---
Date Performed: 05/23/2018 Time Performed: 18:46:49 PTAGE: 62 years EKG: SINUS BRADYCARDIA BORDERLINE ECG No significant change PREVIOUS TRACING : 05/23/2018 15.19 DOCTOR: Cyril Rico Interpretating Date/Time 05/24/2018 11:35:42
--- NOTE | 2018-05-24 11:37 | ECG ---
Date Performed: 05/23/2018 Time Performed: 15:19:49 PTAGE: 62 years EKG: SINUS BRADYCARDIA BORDERLINE ECG INTERPRETATION BASED ON A DEFAULT AGE OF 40 YEARS No signi ficant change PREVIOUS TRACING : 02/19/2018 13.50 DOCTOR: Cyril Rico Interpretating Date/Time 05/24/2018 11:36:28
[2018-05-24 12:08] VITALS: BP 103/50; PULSE 71; TEMP 98.1; O2SAT 97
== END 2018-05-24 13:23 | disposition home or self-care (01) ==
LOC: NEDA 15:13 → NEPC 15:13 → NEPHCDU 15:13
PROVIDERS: ADMIT Internal Medicine Cardiovascular Disease; ATTEND Internal Medicine Cardiovascular Disease

== ENCOUNTER 2018-06-26 14:56 | Observation (INO) ==
--- NOTE | 2018-06-26 19:14 | ED ---
HPI General Chief complaint: Neuro Symptoms/Deficit Stated complaint: right ear pain/blurry vision Time Seen by Provider: 06/26/18 17:37 Source: patient Mode of arrival: ambulatory Limitations: no limitations History of Present Illness HPI narrative: Patient is a 62-year-old female presenting to emergency department for evaluation of right ear fullness. Patient states it started over week ago. She reports pain that radiates to her jaw and to her mosque. Patient states her ear feels full and it makes her feel dizzy. He states it hurts to open her mouth. She also reports that her vision goes "in and out". She denies any floaters or current visual changes. Patient does not wear corrective lenses. Patient states she did not tell her primary doctor about this because she forgot. She went to her primary doctor yesterday to be evaluated and he suggested she follow-up with an ear, nose, throat specialist. Patient states she could not find one in the area so she went to [facility] who sent her to the emergency department to be evaluated. Symptom onset was gradual, symptoms are mild in nature. No alleviating factors, no exacerbating factors. Pain is intermittent. He denies any fever, chills, nausea, headache, photophobia. Onset (ago): week(s) (1) Location: head (right ear) Radiation: other (jaw) Severity: mild Severity scale (1-10): 4 Quality: stabbing Pain Consistency: intermittent Relieving factors: none Exacerbating factors: movement Treatments prior to arrival: none Related Data Home Medications Medication Instructions Recorded Confirmed amlodipine 5 mg PO DAILY 05/23/18 06/26/18 sertraline 25 mg PO DAILY 05/23/18 06/26/18 tramadol 50 mg PO Q8HR PRN 05/23/18 06/26/18 Allergies Allergy/AdvReac Type Severity Reaction Status Date / Time naproxen AdvReac Severe NAUSEA Verified 06/26/18 18:15 Review of Systems ROS: all other systems reviewed are negative [facility] Medical History Medical History Carpal tunnel syndrome (Acute) H/O: hysterectomy (Acute) HTN (hypertension) (Acute) Heart murmur (Acute) Heart valve problem (Acute) Surgical History Surgical History H/O section (Acute) Hx of hernia repair (Acute) Social History Social History Substance History: No History of Abuse Second Hand Smoke Exposure: No Smoking Status: Never smoker Tobacco Type: Cigarettes How Often Do You Have a Drink Containing Alcohol: Never Hx Recent Travel: No Recent Travel in [facility] within the Last 8 Weeks: No Recent Out of Country Travel within the Last 8 Weeks: No Immunization History Tetanus Immunization: Unsure Hx Influenza Vaccine This Season: No Exam Narrative Exam Narrative: GENERAL: Well-developed, well-nourished, alert -[place] female. Presenting in no acute distress. SKIN: Focused skin assessment warm/dry. HEAD: Atraumatic. Normocephalic. EYES: Pupils equal and round, pinpoint. No scleral icterus. No injection or drainage. Extraocular movements are intact. ENT: No nasal bleeding or discharge. Mucous membranes pink and moist. NECK: Trachea midline. No JVD. EARS: Bilateral pinnae and external canals appear within normal limits. Bilateral tympanic membranes without erythema or perforation. Dullness to bilateral tympanic membranes. CARDIOVASCULAR: Regular rate and rhythm. No murmur appreciated. RESPIRATORY: No accessory muscle use. Clear to auscultation. Breath sounds equal bilaterally. GASTROINTESTINAL: Abdomen soft, non-tender, nondistended. Hepatic and splenic margins not palpable. MUSCULOSKELETAL: No obvious deformities. No clubbing. No cyanosis. No edema. NEUROLOGICAL: Awake and alert. No obvious cranial nerve deficits. Motor grossly within normal limits. Normal speech. PSYCHIATRIC: Appropriate mood and affect; insight and judgment normal. Course Initial Documented Vital Signs Temperature 98.3 F 06/26/18 15:02 Pulse Rate 51 L 06/26/18 15:02 Respiratory Rate 17 06/26/18 15:02 Blood Pressure 152/99 H 06/26/18 15:02 Pulse Oximetry 99 06/26/18 15:02 Last Documented Vital Signs Temperature 98.3 F 06/26/18 15:02 Pulse Rate 58 L 06/26/18 21:39 Respiratory Rate 18 06/26/18 21:39 Blood Pressure 146/70 H 06/26/18 21:39 Pulse Oximetry 99 06/26/18 21:39 Medical Decision Making DIANA Attestation DIANA supervised visit: Yes Attestation: I, Dr. Monson, have reviewed the advance practice practitioner's documentation and am in agreement, met with the patient face to face, made the diagnosis, and the medical decision making was done by me. *My assessment and Findings: Patient is a 62-year-old female, past medical history significant for hypertension, who presents with complaint of intermittent dizziness with vision changes over the left at least week. She also states that when she has a dizziness she feels unsteady on her feet like she is about to fall, has right-sided weakness, and also has difficulty swallowing during that time. These episodes last several seconds to several minutes then resolve on their own. This had not happened prior to this week. No chest pain or shortness of breath at those times. She is neurologically intact on arrival here. Head CT does not show an acute abnormality. She will be admitted for TIA workup as the symptoms are concerning for this 62-year-old. [facility] Narrative Medical decision making narrative: Patient presented for evaluation of right ear pain, visual changes, dizziness. CT scan is ordered and pending. Visual acuity orthostatic vital signs will be assessed. Patient's vital signs are stable. Will reassess. Patient reported to my attending physician that she had a intermittent weakness as well. TIA workup was initiated. Labs reviewed, no acute findings identified. CT scan of the brain shows no acute findings. Patient was admitted under observation for TIA workup. Patient is agreeable. Discussed with patient she then complained of chest pain 0.5 inch of Nitropaste applied to patient's anterior chest wall. Initial set of cardiac enzymes are negative. Medical Screen Exam Complete: Yes Emergency Medical Condition: Yes Differential Diagnosis Differential Diagnosis: Otitis media versus effusion versus trigeminal neuralgia versus TIA versus other Medical Records Medical records reviewed: Yes I reviewed the patient's medical records. Lab Data Lab results reviewed: Yes I reviewed the patient's lab results. Result diagrams: 06/26/18 20:55 06/26/18 20:55 Lab Results 06/26/18 06/26/18 06/26/18 Range/Units 20:55 20:55 20:55 WBC 4.9 (4.0-11.0) th/mm3 RBC 4.06 (4.00-5.30) mil/mm3 Hgb 12.6 (11.6-15.3) gm/dL Hct 37.6 (35.0-46.0) % MCV 92.7 (80.0-100.0) fL MCH 30.9 (27.0-34.0) pg MCHC 33.4 (32.0-36.0) % RDW 14.9 (11.6-17.2) % Plt Count 266 (150-450) th/mm3 MPV 7.7 (7.0-11.0) fL Neut % (Auto) 21.3 (16.0-70.0) % Lymph % (Auto) 57.5 H (9.0-44.0) % [place] % (Auto) 10.3 H (0.0-8.0) % Eos % (Auto) 9.9 H (0.0-4.0) % Baso % (Auto) 1.0 (0.0-2.0) % Neut # (Auto) 1.1 L (1.8-7.7) th/mm3 Lymph # (Auto) 2.8 (1.0-4.8) th/mm3 [place] # (Auto) 0.5 (0.0-0.9) th/mm3 Eos # (Auto) 0.5 H (0.0-0.4) th/mm3 Baso # (Auto) 0.1 (0.0-0.2) th/mm3 WBC Differential . Differential Comment Auto diff final ESR 23 (0-30) mm/hr PT 10.6 (9.8-11.6) sec INR 1.0 Ratio APTT 24.6 (24.3-30.1) sec Sodium 142 (136-145) meq/L Potassium 3.8 (3.5-5.1) meq/L Chloride 107 (98-107) meq/L Carbon Dioxide 26.6 (21.0-32.0) meq/L Anion Gap 8 (5-15) meq/L BUN 12 (7-18) mg/dL Creatinine 1.07 H (0.50-1.00) mg/dL Estimated GFR 63 L (>89) mL/min Random Glucose 83 (74-106) mg/dL Calcium 9.4 (8.5-10.1) mg/dL Total Bilirubin 0.4 (0.2-1.0) mg/dL AST 22 (15-37) U/L ALT 16 (10-53) U/L Alkaline Phosphatase 73 (45-117) U/L Troponin I (0.02-0.05) ng/mL C-Reactive Protein Less than 0.29 (0.00-0.30) mg/dL Total Protein 7.4 (6.4-8.2) g/dL Albumin 3.7 (3.4-5.0) g/dL 06/26/18 Range/Units 20:55 WBC (4.0-11.0) th/mm3 RBC (4.00-5.30) mil/mm3 Hgb (11.6-15.3) gm/dL Hct (35.0-46.0) % MCV (80.0-100.0) fL MCH (27.0-34.0) pg MCHC (32.0-36.0) % RDW (11.6-17.2) % Plt Count (150-450) th/mm3 MPV (7.0-11.0) fL Neut % (Auto) (16.0-70.0) % Lymph % (Auto) (9.0-44.0) % [place] % (Auto) (0.0-8.0) % Eos % (Auto) (0.0-4.0) % Baso % (Auto) (0.0-2.0) % Neut # (Auto) (1.8-7.7) th/mm3 Lymph # (Auto) (1.0-4.8) th/mm3 [place] # (Auto) (0.0-0.9) th/mm3 Eos # (Auto) (0.0-0.4) th/mm3 Baso # (Auto) (0.0-0.2) th/mm3 WBC Differential Differential Comment ESR (0-30) mm/hr PT (9.8-11.6) sec INR Ratio APTT (24.3-30.1) sec Sodium (136-145) meq/L Potassium (3.5-5.1) meq/L Chloride (98-107) meq/L Carbon Dioxide (21.0-32.0) meq/L Anion Gap (5-15) meq/L BUN (7-18) mg/dL Creatinine (0.50-1.00) mg/dL Estimated GFR (>89) mL/min Random Glucose (74-106) mg/dL Calcium (8.5-10.1) mg/dL Total Bilirubin (0.2-1.0) mg/dL AST (15-37) U/L ALT (10-53) U/L Alkaline Phosphatase (45-117) U/L Troponin I 0.02 (0.02-0.05) ng/mL C-Reactive Protein (0.00-0.30) mg/dL Total Protein (6.4-8.2) g/dL Albumin (3.4-5.0) g/dL Imaging Data Radiologist's impression: Head CT 06/26/18 18:50 CONCLUSION: 1. No acute intracranial abnormalities. . Chest X-Ray 06/26/18 20:30 CONCLUSION: No active disease. Tortuous aorta. Discharge Plan Discharge Disposition Patient Disposition: 30 Still Patient Discharge Condition Condition: Stable Discharge Details Diagnosis: TIA (transient ischemic attack) Physicians Team ED Provider: Verona Monson ED Midlevel Provider: Rosa Maria Nunn Primary Care Provider: Fortunato Nix Rxs /Orders / Referrals /Forms Prescriptions: No Action amlodipine 5 mg Tablet 5 mg PO DAILY RF: 0 tramadol 50 mg Tablet 50 mg PO Q8HR PRN (Reason: Back Pain) RF: 0 sertraline 25 mg Tablet 25 mg PO DAILY RF: 0 Status ED Status: With Doctor
--- NOTE | 2018-06-26 19:53 | CT ---
EXAM DATE: 06/26/2018 7:22 PM EDT AGE/SEX: 62 years / Female INDICATIONS: Dizziness. Right ear pain. CLINICAL DATA: This is the patient's initial encounter. Patient reports that signs and symptoms have been present for 2 days and indicates a pain score of 9/10. MEDICAL/SURGICAL HISTORY: Hypertension. Hysterectomy. RADIATION DOSE: 56.35 CTDI (mGy) COMPARISON: [facility] [place], CT BRAIN W/O CONTRAST, 09/06/2017. . TECHNIQUE: CT of the head without contrast. Using automated exposure control and adjustment of the mA and/or kV according to patient size, radiation dose was kept as low as reasonably achievable to ob tain optimal diagnostic quality images. DICOM format image data is available electronically for revi ew and comparison. FINDINGS: Cerebrum: The ventricles are normal for age. No evidence of midline shift, mass lesion, hemorrhage or acute infarction. No extraaxial fluid collections are seen. Posterior Fossa: The cerebellum and brainstem are intact. The 4th ventricle is midline. The cerebe llopontine angle is unremarkable. Extracranial: The visualized portion of the orbits is intact. Skull: The calvaria is intact. No evidence of skull fracture. CONCLUSION: 1. No acute intracranial abnormalities. . Electronically signed by: Hcetor Bates MD 06/26/2018 7:52 PM EDT
[2018-06-26] MEDS ORDERED: Acetaminophen 325 MG Tablet PO ONE (20:01)
[2018-06-26 21:25] LABS: Baso # (Auto) 0.1 th/mm3 (0.0-0.2); Eos # (Auto) 0.5 th/mm3 (0.0-0.4); Eos % (Auto) 9.9 % (0.0-4.0); Hematocrit 37.6 % (35.0-46.0); Hemoglobin 12.6 gm/dL (11.6-15.3); Lymph # (Auto) 2.8 th/mm3 (1.0-4.8); Lymph % (Auto) 57.5 % (9.0-44.0); Mean Corpuscular HGB Conc 33.4 % (32.0-36.0); Mean Corpuscular Hemoglobin 30.9 pg (27.0-34.0); Mean Corpuscular Volume 92.7 fL (80.0-100.0); Mean Platelet Volume 7.7 fL (7.0-11.0); Mono # (Auto) 0.5 th/mm3 (0.0-0.9); Mono % (Auto) 10.3 % (0.0-8.0); Neut # (Auto) 1.1 th/mm3 (1.8-7.7); Neut % (Auto) 21.3 % (16.0-70.0); Platelet Count 266 th/mm3 (150-450); Red Blood Count 4.06 mil/mm3 (4.00-5.30); Red Cell Distribution Width 14.9 % (11.6-17.2); White Blood Count 4.9 th/mm3 (4.0-11.0)
--- NOTE | 2018-06-26 21:32 | XR ---
EXAM DATE: 06/26/2018 9:07 PM EDT AGE/SEX: 62 years / Female INDICATIONS: Short of breath. CLINICAL DATA: This is the patient's initial encounter. Patient reports that signs and symptoms have been present for 1 day and indicates a pain score of 0/10. MEDICAL/SURGICAL HISTORY: Hypertension. Leaking heart valve. None. COMPARISON: [facility] [place], CHEST 1V SINGLE AP, 05/23/2018. . FINDINGS: A single AP view of the chest demonstrates the lungs to be symmetrically aerated without evidence of mass, infiltrate or effusion. The cardiomediastinal contours are unremarkable. Osseous structures a re intact. CONCLUSION: No active disease. Tortuous aorta. Electronically signed by: Hector Bates MD 06/26/2018 9:31 PM EDT
[2018-06-26 21:45] LABS: Activated Partial Thrombo Time 24.6 sec (24.3-30.1); Prothrombin Time 10.6 sec (9.8-11.6)
[2018-06-26 21:52] LABS: Erythrocyte Sedimentation Rate 23 mm/hr (0-30)
[2018-06-26 22:17] LABS: Albumin 3.7 g/dL (3.4-5.0); Anion Gap 8 meq/L (5-15); Aspartate Aminotransferase 22 U/L (15-37); Blood Urea Nitrogen 12 mg/dL (7-18); Calcium 9.4 mg/dL (8.5-10.1); Carbon Dioxide 26.6 meq/L (21.0-32.0); Chloride 107 meq/L (98-107); Glomerular Filtration Rate 63 mL/min (>89); Glucose,Random 83 mg/dL (74-106); Potassium 3.8 meq/L (3.5-5.1); Sodium 142 meq/L (136-145)
[2018-06-26 22:18] LABS: Alanine Aminotransferase 16 U/L (10-53)
[2018-06-26 22:20] LABS: Alkaline Phosphatase 73 U/L (45-117); Total Protein 7.4 g/dL (6.4-8.2)
[2018-06-27] MEDS ORDERED: Dextrose 50% in Water 50 ML Vial IV.PUSH PRN (00:06)
[2018-06-27] MEDS ORDERED: Acetaminophen 325 MG Tablet PO PRN (00:09)
--- NOTE | 2018-06-27 00:14 | P.HP ---
History of Present Illness Service: [facility] Primary Care Physician: Fortunato Nix History of Present Illness: 62-year-old female with past medical history of hypertension, hyperlipidemia and chronic back pain presents to the emergency department for the evaluation of multiple complaints. The patient reports right ear pain that she was seen by her primary care provider for and referred to ENT. She also complains of jaw pain, dizziness, unstable gait and right lower extremity weakness. She states she also has chest pain and shortness of breath. She denies any fevers/ chills. No abdominal pain. No nausea/vomiting/diarrhea. Review of Systems All other systems reviewed negative except as stated in HPI PMFSH - History History Provided By: Patient - Medical History Medical History: Medical History (Last Updated 06/26/18 @ 23:59 by Noemi Hall MD) Chronic back pain Hyperlipidemia Carpal tunnel syndrome H/O: hysterectomy HTN (hypertension) Heart murmur Heart valve problem - Surgical History Surgical History: Surgical History (Last Updated 06/27/18 @ 00:00 by Noemi Hall MD) History of carpal tunnel release H/O section Hx of hernia repair - Family History Family History: Family History (Last Updated 06/27/18 @ 00:00 by Noemi Hall MD) Other Coronary artery disease - Tobacco History Second Hand Smoke Exposure: No Smoking Status: Never smoker Tobacco Type: Cigarettes - Alcohol History How Often Do You Have a Drink Containing Alcohol: Never - Substance Use History Substance History: No History of Abuse - Travel History History of Recent Travel: No Recent Travel in the [place] Within the Last 8 Weeks: No Recent Travel Out of the Country Within the Last 8 Weeks: No - Immunization History Tetanus Immunization: Unsure Hx Influenza Vaccine This Season: No Medications and Allergies Allergies Allergy/AdvReac Type Severity Reaction Status Date / Time naproxen AdvReac Severe NAUSEA Verified 06/26/18 18:15 Home Medications Medication Instructions Recorded Confirmed Type amlodipine 5 mg PO DAILY 05/23/18 06/26/18 History sertraline 25 mg PO DAILY 05/23/18 06/26/18 History tramadol 50 mg PO Q8HR PRN 05/23/18 06/26/18 History Exam Vital signs: Vital Signs 06/26/18 15:02 06/26/18 19:00 06/26/18 20:30 Temperature 98.3 F Pulse Rate 51 L 48 L 46 L Respiratory Rate 17 18 18 Blood Pressure 152/99 H 151/63 H 151/71 H Pulse Oximetry 99 99 98 06/26/18 21:39 Temperature Pulse Rate 58 L Respiratory Rate 18 Blood Pressure 146/70 H Pulse Oximetry 99 Intake & Output 06/26/18 06/26/18 06/27/18 06:59 18:59 06:59 Weight 56.245 kg Narrative: Gen.: No acute distress Head: Normocephalic. Atraumatic. EENT: Pupils equal round and reactive to light. Nose without drainage. Airway intact. Throat without injection. Wax buildup coating the right tympanic membrane. Cardiovascular: Regular rate and rhythm. No murmurs, rubs or gallops. Respiratory: Lungs clear to auscultation bilaterally. No wheezes or rhonchi. Abdomen: Soft, nontender, nondistended. No peritoneal signs. Musculoskeletal: No gross deformities. No edema. Skin: No obvious rashes or erythema. Neuro: Sensory and motor intact. Cranial nerves II through XII intact. 5/5 strength throughout. - Detailed Eye Exam Visual acuity: Visual Acuity Visual Acuity Uncorrected [ 20/40 Bilateral] Visual Acuity Uncorrected [ 20/40 Right] Visual Acuity Uncorrected [ 20/50 Left] Results - Labs CBC & Chem 7: 06/26/18 20:55 06/26/18 20:55 Labs: Laboratory Results - last 24 hr 06/26/18 06/26/18 06/26/18 20:55 20:55 20:55 WBC 4.9 RBC 4.06 Hgb 12.6 Hct 37.6 MCV 92.7 MCH 30.9 MCHC 33.4 RDW 14.9 Plt Count 266 MPV 7.7 Neut % (Auto) 21.3 Lymph % (Auto) 57.5 H [place] % (Auto) 10.3 H Eos % (Auto) 9.9 H Baso % (Auto) 1.0 Neut # (Auto) 1.1 L Lymph # (Auto) 2.8 [place] # (Auto) 0.5 Eos # (Auto) 0.5 H Baso # (Auto) 0.1 WBC Differential . Differential Comment Auto diff final ESR 23 PT 10.6 INR 1.0 APTT 24.6 Sodium 142 Potassium 3.8 Chloride 107 Carbon Dioxide 26.6 Anion Gap 8 BUN 12 Creatinine 1.07 H Estimated GFR 63 L Random Glucose 83 Calcium 9.4 Total Bilirubin 0.4 AST 22 ALT 16 Alkaline Phosphatase 73 Troponin I C-Reactive Protein Less than 0.29 Total Protein 7.4 Albumin 3.7 06/26/18 20:55 WBC RBC Hgb Hct MCV MCH MCHC RDW Plt Count MPV Neut % (Auto) Lymph % (Auto) [place] % (Auto) Eos % (Auto) Baso % (Auto) Neut # (Auto) Lymph # (Auto) [place] # (Auto) Eos # (Auto) Baso # (Auto) WBC Differential Differential Comment ESR PT INR APTT Sodium Potassium Chloride Carbon Dioxide Anion Gap BUN Creatinine Estimated GFR Random Glucose Calcium Total Bilirubin AST ALT Alkaline Phosphatase Troponin I 0.02 C-Reactive Protein Total Protein Albumin - Imaging Impressions Head CT 06/26/18 18:50 CONCLUSION: 1. No acute intracranial abnormalities. . Chest X-Ray 06/26/18 20:30 CONCLUSION: No active disease. Tortuous aorta. Caprini VTE Risk Assessment Caprini VTE Risk Assessment: Moderate/High Risk (score >= 2) Caprini Risk Assessment Model: Point Value = 1 Point Value = 2 Point Value = 3 Point Value = 5 Age 41-60 Minor surgery BMI > 25 kg/m2 Swollen legs Varicose veins or History of unexplained or recurrent spontaneous Oral contraceptives or hormone replacement Sepsis (< 1 month) Serious lung disease, including pneumonia (< 1 month) Abnormal pulmonary function Acute myocardial infarction Congestive heart failure (< 1 month) History of inflammatory bowel disease Medical patient at bed rest Age 61-74 Arthroscopic surgery Major open surgery (> 45 min) Laparoscopic surgery (> 45 min) Malignancy Confined to bed (> 72 hours) Immobilizing plaster cast Central venous access Age >= 75 History of VTE Family history of VTE Factor V Leiden Prothrombin [id number] Lupus anticoagulant Anticardiolipin antibodies Elevated serum homocysteine Heparin-induced thrombocytopenia Other congenital or acquired thrombophilia Stroke (< 1 month) Elective arthroplasty Hip, pelvis, or leg fracture Acute spinal cord injury (< 1 month) Prophylaxis Regimen: Total Risk Factor Score Risk Level Prophylaxis Regimen 0-1 Low Early ambulation 2 Moderate Order ONE of the following: *Sequential Compression Device (SCD) *Heparin 5000 units SQ BID 3-4 Higher Order ONE of the following medications: *Heparin 5000 units SQ TID *Enoxaparin/Lovenox 40 mg SQ daily (WT < 150 kg, CrCl > 30 mL/min) *Enoxaparin/Lovenox 30 mg SQ daily (WT < 150 kg, CrCl > 10-29 mL/min) *Enoxaparin/Lovenox 30 mg SQ BID (WT < 150 kg, CrCl > 30 mL/min) AND/OR *Sequential Compression Device (SCD) 5 or more Highest Order ONE of the following medications: *Heparin 5000 units SQ TID (Preferred with Epidurals) *Enoxaparin/Lovenox 40 mg SQ daily (WT < 150 kg, CrCl > 30 mL/min) *Enoxaparin/Lovenox 30 mg SQ daily (WT < 150 kg, CrCl > 10-29 mL/min) *Enoxaparin/Lovenox 30 mg SQ BID (WT < 150 kg, CrCl > 30 mL/min) AND *Sequential Compression Device (SCD) Assessment and Plan - Plan Assessment/plan: 1. Right lower extremity weakness Concern for TIA TIA workup pending including carotids, MRI/MRA Neurology consulted, appreciate recommendations Aspirin 2. Chest pain/shortness of breath Initial troponin negative EKG without signs of ischemia, personally reviewed Serial troponins/ Patient not hypoxic or requiring oxygen 3. Ear pain Wax obscuring the tympanic membrane No signs of infection on otoscopic exam Irrigation of the ear canal to be performed in the ED 4. Hypertension/hyperlipidemia/chronic back pain Continue home medications FEN N.p.o. Electrolytes: Monitor and replete as needed NS at 70 cc/hour Heparin
[2018-06-27] MEDS: Sod Chloride 0.9% Inj 1,000 ML IV.CONT SCH ×2 (00:50→15:16)
[2018-06-27] MEDS: Heparin - SQ 10,000 UNITS/ML Vial SQ SCH ×2 (00:51→13:36)
[2018-06-27] MEDS: Insulin NovoLOG Aspart Correctional Sugar Inj SQ SCH ×5 (03:11→20:42)
[2018-06-27 04:31] LABS: Troponin I 0.02 ng/mL (0.02-0.05)
[2018-06-27 09:29] LABS: Troponin I 0.03 ng/mL (0.02-0.05)
--- NOTE | 2018-06-27 10:25 | MR ---
EXAM DATE: 06/27/2018 10:20 AM EDT AGE/SEX: 62 years / Female INDICATIONS: . Right lower extremity weakness. CLINICAL DATA: This is the patient's subsequent encounter. Patient reports that signs and symptoms h ave been present for 2 days and indicates a pain score of 0/10. MEDICAL/SURGICAL HISTORY: Hypercholesterolemia. Hypertension. Hysterectomy. Carpal tunnel syn drome. section. lt breast cyst removed COMPARISON: [facility] [place], [place] HEAD W/O CONTRAST, 06/27/2018. [facility] [place], MRA BRAIN W/O CONTRAST, 09/07/2017. . TECHNIQUE: 3D [id number] MRA was performed. Source images, multiplanar STS MIP, and 3D volum e MIP reconstructions were reviewed. FINDINGS: There is excellent visualization of the major intracranial arteries out to the second-order branch ve ssels. There is no evidence for aneurysm, vessel truncation or stenosis, and no evidence for vascula r malformation. There are patent bilateral posterior communicating arteries. CONCLUSION: 1. Negative MRA Cow ([place]) non contrast. 2. Patent bilateral posterior communicating arteries. Electronically signed by: Darryl Bravo MD 06/27/2018 10:23 AM EDT
--- NOTE | 2018-06-27 10:25 | MR ---
EXAM DATE: 06/27/2018 10:17 AM EDT AGE/SEX: 62 years / Female INDICATIONS: . Right lower extremity weakness. CLINICAL DATA: This is the patient's subsequent encounter. Patient reports that signs and symptoms h ave been present for 2 days and indicates a pain score of 0/10. MEDICAL/SURGICAL HISTORY: Hypertension. Hypercholesterolemia. Hysterectomy. Carpal tunnel syn drome. hernia repair, wrist cyst removed, lt breast cyst removed COMPARISON: [facility], MRA HEAD W/O CONTRAST, 06/27/2018. . TECHNIQUE: Multiplanar, multisequence examination of the brain was performed without contrast. FINDINGS: Cerebrum: The ventricles are normal for age. No evidence of midline shift, mass lesion, hemorrhage or acute infarction. No extraaxial fluid collections are seen. The pituitary gland and suprasellar cistern are normal in configuration. White Matter: No significant signal abnormalities are seen in the white matter. Posterior Fossa: The cerebellum and brainstem are intact. The 4th ventricle is midline. The cerebel lopontine angle is unremarkable. The cerebellar tonsils are normal in position. Diffusion Imaging: No focal areas of restricted diffusion are seen. No evidence of acute infarction . Extracranial: The visualized portions of the orbits and paranasal sinuses are unremarkable. CONCLUSION: 1. Negative MR Brain non contrast. Electronically signed by: Haseeb Serrato MD 06/27/2018 10:23 AM EDT
[2018-06-27] MEDS: Aspirin 325 MG Tablet PO SCH (10:36)
[2018-06-27] MEDS: Sertraline 50 MG Tablet PO SCH (10:36)
[2018-06-27] MEDS: Senna/Docusate Sodium 8.6/50 MG Tablet PO SCH ×2 (10:36→20:39)
[2018-06-27] MEDS: amLODIPine 5 MG Tablet PO SCH (10:37)
--- NOTE | 2018-06-27 11:29 | US ---
EXAM DATE: 06/27/2018 11:22 AM EDT AGE/SEX: 62 years / Female INDICATIONS: Dizziness. Unstable gait. Right lower extremity weakness. CLINICAL DATA: This is the patient's initial encounter. Patient reports that signs and symptoms have been present for 2 days and indicates a pain score of 0/10. MEDICAL/SURGICAL HISTORY: Hypertension. Heart murmur. Heart valve disorder. Hyperlipidemia. Ce sarean section. Hysterectomy. Carpal tunnel release. Hernia repair. COMPARISON: [facility] [place], CAROTID ARTERIES, 09/06/2017. . VELOCITY PARAMETERS: ICA/CCA Ratio: Right 1.3 , Left 1.5 ICA: Right 104 cm/sec, Left 106 cm/sec CCA: Right 78 cm/sec, Left 72 cm/sec ECA: Right 60 cm/sec, Left 63 cm/sec Vertebral: Right . cm/sec absent, Left 54 cm/sec antegrade FINDINGS: Right Carotid: No significant plaque is visualized.The waveforms are within normal limits. Left Carotid: No significant plaque is visualized. The waveforms are within normal limits. Other: No flow is demonstrated in the right vertebral artery. Left vertebral artery is patent with a ntegrade flow. CONCLUSION: 1. Right Internal Carotid Artery: No significant stenosis or atherosclerotic plaque is visualized. 2. Left Internal Carotid Artery: No significant stenosis or atherosclerotic plaque is visualized. 3. Occluded right vertebral artery. Antegrade flow in dominant left vertebral artery. Electronically signed by: Suleiman Sahni MD 06/27/2018 11:28 AM EDT
--- NOTE | 2018-06-27 12:53 | ECHRPT ---
Indication: cva/tia CONCLUSIONS The left ventricular systolic function is normal with an estimated ejection fraction in the range of 60-65%. Mild mitral valve regurgitation. There is mild tricuspid valve regurgitation. BP: / HR: Rhythm: Technical Quality: FINDINGS LEFT VENTRICLE Normal left ventricular size. Wall thickness is normal. The left ventricular systolic function is normal with an estimated ejection fraction in the range of 60-65%. RIGHT VENTRICLE Normal right ventricular size and systolic function. LEFT ATRIUM The left atrial size is normal. RIGHT ATRIUM The right atrial size is normal. ATRIAL SEPTUM Normal atrial septal thickness AORTA The aortic root and proximal ascending aorta are normal in size on limited imaging. MITRAL VALVE Structurally normal mitral valve. Mild mitral valve regurgitation. No mitral valve stenosis. AORTIC VALVE Trileaflet aortic valve. No aortic valve stenosis or regurgitation. TRICUSPID VALVE Structurally normal tricuspid valve. There is mild tricuspid valve regurgitation. The estimated pulmonary arterial pressure is 40 mmHg. PULMONARY VALVE The pulmonary valve is not well visualized. VESSELS The inferior vena cava is normal in size. PERICARDIUM No pericardial effusion. Sergey Mi DO (Electronically Signed) Final Date:27 June 2018 12:52
--- NOTE | 2018-06-27 13:36 | P.PN ---
Subjective Interval history: Follow-up for multiple medical complaints. Patient is now concerned about some chest pressure that started earlier today. She states she has been battling with chest pains for months, and it returned today. She locates the pain to the left anterior chest and substernal regions, described as constant sharp stabbing pains, associated with some shortness of breath, denies any nausea or diaphoresis. She states her retread mold operator is Dr. Seaman. She reports a cardiac catheterization a few months ago, but denies any intervention. Otherwise, patient's other medical complaints have improved. She is status post irrigation of the right femur with improvement of the right ear pain. She currently denies any jaw pain. She states she does get dizzy at times, but denies any currently while sitting in bed. She reports just feeling very weak. She has no other medical complaints at this time. Physical Exam Vital signs: Vital Signs 06/26/18 15:02 06/26/18 19:00 06/26/18 20:30 Temperature 98.3 F Pulse Rate 51 L 48 L 46 L Respiratory Rate 17 18 18 Blood Pressure 152/99 H 151/63 H 151/71 H Pulse Oximetry 99 99 98 06/26/18 21:39 06/27/18 00:51 06/27/18 00:53 Temperature 98.3 F Pulse Rate 58 L 45 L Respiratory Rate 18 16 15 Blood Pressure 146/70 H 136/73 Pulse Oximetry 99 06/27/18 03:45 06/27/18 04:03 06/27/18 08:05 Temperature 98.1 F 98.2 F Pulse Rate 47 L 53 L 48 L Respiratory Rate 16 18 Blood Pressure 114/65 118/62 Pulse Oximetry 96 96 06/27/18 12:10 Temperature 98.4 F Pulse Rate 51 L Respiratory Rate 18 Blood Pressure 129/60 Pulse Oximetry 97 Intake & Output 06/26/18 06/27/18 06/27/18 18:59 06:59 18:59 Intake Total 720 / 720 Balance 720 / 720 Weight 56.245 kg 56.245 kg Intake: Oral 720 / 720 Other: # Voids 1 Date of Last Bowel Movement 06/26/18 Weight On Admission 56.245 kg Narrative: GENERAL: Well-nourished, well-developed middle-aged AA female patient in [facility] [place]. SKIN: Warm and dry. No rash. HEENT: Normocephalic. Atraumatic. Pupils equal and round. Mucous membranes pink and moist. NECK: Supple. Trachea midline. CARDIOVASCULAR: Regular rate and rhythm. No murmur appreciated. RESPIRATORY: No accessory muscle use. Clear to auscultation. Breath sounds equal bilaterally. GASTROINTESTINAL: Abdomen soft, non-tender, nondistended. Normoactive bowel sounds x4. MUSCULOSKELETAL: No obvious deformities. Extremities without clubbing, cyanosis , or edema. NEUROLOGICAL: Awake and alert. No obvious cranial nerve deficits. Motor grossly within normal limits. Moving all extremities spontaneously. Normal speech. PSYCHIATRIC: Appropriate mood and affect; insight and judgment normal. - Detailed Eye Exam Visual acuity: Visual Acuity Visual Acuity Uncorrected [ 20/40 Bilateral] Visual Acuity Uncorrected [ 20/40 Right] Visual Acuity Uncorrected [ 20/50 Left] Results - Labs CBC & Chem 7: 06/26/18 20:55 06/26/18 20:55 Laboratory Results - last 24 hr 06/26/18 06/26/18 06/26/18 20:55 20:55 20:55 WBC 4.9 RBC 4.06 Hgb 12.6 Hct 37.6 MCV 92.7 MCH 30.9 MCHC 33.4 RDW 14.9 Plt Count 266 MPV 7.7 Neut % (Auto) 21.3 Lymph % (Auto) 57.5 H [place] % (Auto) 10.3 H Eos % (Auto) 9.9 H Baso % (Auto) 1.0 Neut # (Auto) 1.1 L Lymph # (Auto) 2.8 [place] # (Auto) 0.5 Eos # (Auto) 0.5 H Baso # (Auto) 0.1 WBC Differential . Differential Comment Auto diff final ESR 23 PT 10.6 INR 1.0 APTT 24.6 Sodium 142 Potassium 3.8 Chloride 107 Carbon Dioxide 26.6 Anion Gap 8 BUN 12 Creatinine 1.07 H Estimated GFR 63 L POC Glucose Random Glucose 83 Calcium 9.4 Total Bilirubin 0.4 AST 22 ALT 16 Alkaline Phosphatase 73 Total Creatine Kinase Troponin I C-Reactive Protein Less than 0.29 Total Protein 7.4 Albumin 3.7 06/26/18 06/27/18 06/27/18 20:55 03:08 03:45 WBC RBC Hgb Hct MCV MCH MCHC RDW Plt Count MPV Neut % (Auto) Lymph % (Auto) [place] % (Auto) Eos % (Auto) Baso % (Auto) Neut # (Auto) Lymph # (Auto) [place] # (Auto) Eos # (Auto) Baso # (Auto) WBC Differential Differential Comment ESR PT INR APTT Sodium Potassium Chloride Carbon Dioxide Anion Gap BUN Creatinine Estimated GFR POC Glucose 96 Random Glucose Calcium Total Bilirubin AST ALT Alkaline Phosphatase Total Creatine Kinase 120 Troponin I 0.02 0.02 C-Reactive Protein Total Protein Albumin 06/27/18 06/27/18 06/27/18 08:51 10:32 13:25 WBC RBC Hgb Hct MCV MCH MCHC RDW Plt Count MPV Neut % (Auto) Lymph % (Auto) [place] % (Auto) Eos % (Auto) Baso % (Auto) Neut # (Auto) Lymph # (Auto) [place] # (Auto) Eos # (Auto) Baso # (Auto) WBC Differential Differential Comment ESR PT INR APTT Sodium Potassium Chloride Carbon Dioxide Anion Gap BUN Creatinine Estimated GFR POC Glucose 82 71 Random Glucose Calcium Total Bilirubin AST ALT Alkaline Phosphatase Total Creatine Kinase 115 Troponin I 0.03 C-Reactive Protein Total Protein Albumin - Imaging Impressions Head CT 06/26/18 18:50 CONCLUSION: 1. No acute intracranial abnormalities. . Chest X-Ray 06/26/18 20:30 CONCLUSION: No active disease. Tortuous aorta. Carotid Doppler Study 06/27/18 00:00 CONCLUSION: 1. Right Internal Carotid Artery: No significant stenosis or atherosclerotic plaque is visualized. 2. Left Internal Carotid Artery: No significant stenosis or atherosclerotic plaque is visualized. 3. Occluded right vertebral artery. Antegrade flow in dominant left vertebral artery. Head MRI 06/27/18 00:00 CONCLUSION: 1. Negative MR Brain non contrast. Head MRA 06/27/18 00:00 CONCLUSION: 1. Negative MRA Cow ([place]) non contrast. 2. Patent bilateral posterior communicating arteries. Assessment and Plan - Plan 62-year-old female with past medical history of hypertension, hyperlipidemia and chronic back pain presents to the emergency department for the evaluation of multiple complaints. Right lower extremity weakness: Concern for TIA -Head CT, brain MRI, head MRA all unremarkable -Carotid U/s with no significant stenosis, however with occluded right vertebral artery. Antegrade flow in dominant left vertebral artery. -Neuro checks -Aspirin -Echo unremarkable with EF 60-65%, mild MR, mild TR -Check lipid profile, HgbA1c -Neurology consulted, appreciate assistance -PT/OT consulted, no PT needed after discharge Atypical Chest pain/shortness of breath: patient appears comfortable -CXR reviewed and unremarkable -records reviewed, the patient has had extensive cardiac work up with Nuclear stress test and cardiac catheterization -ACS ruled out with negative serial cardiac enzymes and EKG without acute ischemic changes -Given patient's history and recurrent admission for chest pain, will consult the patient's retread mold operator Dr. Seaman -Check CT-PA to rule out PE, although no hypoxia, no leg swelling Ear pain: secondary to cerumen impaction. Wax obscuring the tympanic membrane -No signs of infection on otoscopic exam -Irrigation of the ear canal performed in the ED Hypertension/hyperlipidemia/chronic back pain: chronic -Continue home medications -Monitor BP, adjust antihypertensives as needed DVT Prophylaxis: Heparin Discharge Planning: Await neurology and cardiology evaluation and clearance.
--- NOTE | 2018-06-27 16:14 | CT ---
EXAM DATE: 06/27/2018 4:08 PM EDT AGE/SEX: 62 years / Female INDICATIONS: Upper left chest pain, right arm numbness. CLINICAL DATA: This is the patient's initial encounter. Patient reports that signs and symptoms have been present for 1 day and indicates a pain score of 3/10. MEDICAL/SURGICAL HISTORY: Hypertension. Hysterectomy. section. Hernia repair. RADIATION DOSE: 5.88 CTDI (mGy) COMPARISON: No prior exams available for comparison. TECHNIQUE: Volumetric scanning was performed using a multi-row detector CT scanner during bolus infu yesenia of 53 ml Omnipaque 350 (iohexol) nonionic water-soluble contrast as a single exam dose. The carl a was post processed with a variety of visualization algorithms including full volume maximum intensi ty projection and sliding thin slab reformation. Using automated exposure control and adjustment of t he mA and/or kV according to patient size, radiation dose was kept as low as reasonably achievable to obtain optimal diagnostic quality images. DICOM format image data is available electronically for r eview and comparison. FINDINGS: Pulmonary Arteries: No filling defects are seen in the pulmonary arteries out to the subsegmental ve ssels. The left and right pulmonary arteries are normal in diameter. Lung: No infiltrates seen. Effusion: None. Mediastinum: No evidence of mediastinal or hilar adenopathy. Other: The axilla is unremarkable. CONCLUSION: 1. This study is negative for pulmonary embolism. Electronically signed by: Haseeb Serrato MD 06/27/2018 4:13 PM EDT
--- NOTE | 2018-06-27 20:04 | ECG ---
Date Performed: 06/27/2018 Time Performed: 10:48:30 PTAGE: 62 years EKG: SINUS BRADYCARDIA BORDERLINE ECG PREVIOUS TRACING : 06/27/2018 03.26 Since the previous tracing, no significant change noted DOCTOR: Patricia Manriquez Interpretating Date/Time 06/27/2018 20:02:17
--- NOTE | 2018-06-27 20:24 | ECG ---
Date Performed: 06/27/2018 Time Performed: 03:26:29 PTAGE: 62 years EKG: SINUS BRADYCARDIA BORDERLINE ECG PREVIOUS TRACING : 06/26/2018 21.14 Since the previous tracing, no significant change noted DOCTOR: Patricia Manriquez Interpretating Date/Time 06/27/2018 20:24:06
--- NOTE | 2018-06-27 20:45 | MB ---
cc: Franklin Heredia MD, PhD DATE: 06/27/2018 REASON FOR CONSULTATION: TIA. HISTORY OF PRESENT ILLNESS: Ms. Arnold is a 62-year-old female who has noticed this right ear pain and dizziness, was told she had some type of mass in the right ear. She complains of leg weakness bilaterally, worse on the right than on the left. She has back pain as well. PAST MEDICAL HISTORY: 1. Hypertension. 2. Hyperlipidemia. 3. Chronic back pain. 4. Hysterectomy. 5. Carpal tunnel release. 6. Hernia repair surgery. MEDICATIONS: Currently are: 1. Norvasc. 2. Tylenol. 3. Aspirin. 4. Glucagon. 5. Heparin. NEUROLOGIC EXAM: Higher cortical functions are intact. Cranial nerves are normal. Motor: She has got 5/5 strength of all groups in the upper extremities. She is weak in the lower extremities at 4/5 proximally and distally. Reflexes are 2+ symmetric. Babinski's are equivocal. MRI of the brain is within normal limits with no acute change present. MRA brain is negative. Carotid ultrasound, no significant stenosis is identified. Echocardiogram, EF is 60% to 65%. Remaining studies within normal range. CT of the chest is negative for PE. LABORATORY DATA: White count 4900, hemoglobin 12.6, hematocrit 37.6%, platelet count 266,000. ESR is 23. PT 10.6, INR 1, aPTT 24.6. IMPRESSION: Lower extremity weakness, possible myelopathy. I do not think she had a transient ischemic attack. We will get an MRI cervical and thoracic spine to rule out any cord compression. Franklin Heredia MD, PhD CARLOS/ct , 07:04 PM , 07:08 PM
--- NOTE | 2018-06-27 21:11 | ECG ---
Date Performed: 06/26/2018 Time Performed: 21:14:05 PTAGE: 62 years EKG: SINUS BRADYCARDIA BORDERLINE ECG PREVIOUS TRACING : 05/23/2018 22.59 Since the previous tracing, no significant change noted DOCTOR: Patricia Manriquez Interpretating Date/Time 06/27/2018 21:10:27
--- NOTE | 2018-06-27 21:25 | MB ---
cc: Steph Seaman MD DATE: 06/27/2018 HISTORY OF PRESENT ILLNESS: This is a 62-year-old female with history of hypertension and anxiety. She came to the hospital. She felt that her ear was plugged and out balance, and at the same time she had some episodes of chest pain, sharp, not related to any activity, not associated with any other symptoms. They last a few seconds to few minutes, on and off. The patient had a stress test in my office several weeks ago that was negative for ischemia. She is somewhat active. No edema. No syncope. No orthopnea, no PND. PAST MEDICAL HISTORY: As above. SOCIAL HISTORY: No alcohol, no drugs, no tobacco. ALLERGIES: NAPROSYN. FAMILY HISTORY: Noncontributory. REVIEW OF SYSTEMS: Essentially as above. PHYSICAL EXAMINATION: GENERAL: Alert, oriented, cooperative. VITAL SIGNS: Stable. HEENT: Unremarkable. HEART: S1, S2. LUNGS: Clear to percussion and auscultation. ABDOMEN: Generalized tenderness in the epigastric area. EXTREMITIES: No edema. LABORATORY DATA: EKG and enzymes were negative. ASSESSMENT AND PLAN: Atypical chest pain. We will proceed with CTA of the coronary arteries. The patient might need GI workup for possible ulcers. If the CTA of the chest is negative, probably should stop there, at least at this moment, for the coronary workup. Thank you for the consultation. MD LINUS Saab/tamra , 07:14 PM , 07:20 PM
--- NOTE | 2018-06-27 22:29 | MR ---
EXAM DATE: 06/27/2018 10:23 PM EDT AGE/SEX: 62 years / Female INDICATIONS: Myelopathy. CLINICAL DATA: This is the patient's initial encounter. Patient reports that signs and symptoms have been present for 1 day and indicates a pain score of 5/10. MEDICAL/SURGICAL HISTORY: Hypertension. Hyperlipidema, Heart Murmur . Hernia Repair, Carpal Tu nnel, C- Sections x 2, Hysterectomy COMPARISON: [facility] – [place], MR CERVICAL SPINE W/O CONTRAST, 06/27/2018. . TECHNIQUE: Multiplanar, multisequence MRI of the thoracic spine was performed. FINDINGS: Vertebrae: Normal vertebral body height. Homogeneous marrow signal. Alignment: Normal. Cord: Normal position and configuration. T1-T2: The thecal sac has a normal diameter. No evidence of disc bulge or protrusion. T2-T3: The thecal sac has a normal diameter. No evidence of disc bulge or protrusion. T3-T4: The thecal sac has a normal diameter. No evidence of disc bulge or protrusion. T4-T5: The thecal sac has a normal diameter. No evidence of disc bulge or protrusion. T5-T6: The thecal sac has a normal diameter. No evidence of disc bulge or protrusion. T6-T7: The thecal sac has a normal diameter. No evidence of disc bulge or protrusion. T7-T8: The thecal sac has a normal diameter. No evidence of disc bulge or protrusion. T8-T9: The thecal sac has a normal diameter. No evidence of disc bulge or protrusion. T9-T10: Tiny central protrusion without canal stenosis. T10-T11: The thecal sac has a normal diameter. No evidence of disc bulge or protrusion. T11-T12: The thecal sac has a normal diameter. No evidence of disc bulge or protrusion. T12-L1: The thecal sac has a normal diameter. No evidence of disc bulge or protrusion. CONCLUSION: 1. Tiny central protrusion at T9-10. No canal stenosis. 2. Thoracic spinal cord is normal in signal intensity and caliber. Electronically signed by: Willi Magana MD 06/27/2018 10:28 PM EDT
--- NOTE | 2018-06-27 22:47 | MR ---
EXAM DATE: 06/27/2018 10:40 PM EDT AGE/SEX: 62 years / Female INDICATIONS: Myelopathy. CLINICAL DATA: This is the patient's initial encounter. Patient reports that signs and symptoms have been present for 1 day and indicates a pain score of 5/10. MEDICAL/SURGICAL HISTORY: Hypertension. HYperlipidema, Heart Murmur . Hernia Repair, Carpal Tu nnel, C- Sections x 2, Hysterectomy COMPARISON: [facility] – [place], MR THORACIC SPINE W/O CONTRAST, 06/27/2018. . TECHNIQUE: Multiplanar, multisequence MRI examination of the cervical spine was performed without co ntrast. FINDINGS: Vertebrae: Normal vertebral body height. Homogeneous marrow signal. Alignment: Normal. Cord: Normal configuration and signal. Post Fossa: The cerebellar tonsils are normal in position. C2-C3: The thecal sac has a normal configuration. There is no evidence of disc herniation or spinal canal stenosis. The neural foramina are patent bilaterally. C3-C4: The thecal sac has a normal configuration. There is no evidence of disc herniation or spinal canal stenosis. The neural foramina are patent bilaterally. C4-C5: The thecal sac has a normal configuration. There is no evidence of disc herniation or spinal canal stenosis. The neural foramina are patent bilaterally. C5-C6: Small broad-based protrusion abuts the ventral thecal sac and ventral cord. Mild degree of ca nal stenosis. The neural foramina are patent bilaterally. C6-C7: The thecal sac has a normal configuration. There is no evidence of disc herniation or spinal canal stenosis. The neural foramina are patent bilaterally. C7-T1: No epidural impressions seen. CONCLUSION: 1. Cervical spinal cord appears unremarkable. 2. Small broad-based protrusion at C5-6 causes mild canal stenosis. Electronically signed by: Willi Magana MD 06/27/2018 10:46 PM EDT
[2018-06-28] MEDS: Heparin - SQ 10,000 UNITS/ML Vial SQ SCH ×2 (02:43→14:20)
[2018-06-28] MEDS: Insulin NovoLOG Aspart Correctional Sugar Inj SQ SCH ×5 (02:46→20:18)
[2018-06-28] MEDS: Sod Chloride 0.9% Inj 1,000 ML IV.CONT SCH ×2 (02:48→05:24)
[2018-06-28 08:47] LABS: Chol/HDL Ratio 2.7 Ratio; HDL Cholesterol 82.3 mg/dL (40.0-60.0)
--- NOTE | 2018-06-28 09:13 | P.PN ---
Subjective Interval history: Follow-up for chest pain, weakness. Patient reports an episode of chest pain this morning, requested pain medication, now relieved. She states her weakness has improved and she was able to ambulate with physical therapy yesterday. She denies any fevers or chills. Denies any lightheadedness or dizziness. She has no other medical complaints at this time. Physical Exam Vital signs: Vital Signs 06/27/18 12:10 06/27/18 15:47 06/27/18 20:03 Temperature 98.4 F 98.4 F 98.4 F Pulse Rate 51 L 64 50 L Respiratory Rate 18 20 16 Blood Pressure 129/60 104/64 142/70 H Pulse Oximetry 97 90 L 98 06/27/18 20:45 06/27/18 21:20 06/27/18 22:03 Temperature 98.1 F Pulse Rate 54 L 97 H Respiratory Rate 16 16 Blood Pressure 114/68 Pulse Oximetry 52 L 06/28/18 03:41 06/28/18 07:24 06/28/18 07:53 Temperature 98.2 F 98.2 F Pulse Rate 51 L 47 L 52 L Respiratory Rate 16 18 Blood Pressure 134/63 121/62 Pulse Oximetry 93 L 95 Intake & Output 06/27/18 06/28/18 06/28/18 18:59 06:59 18:59 Intake Total 1000 / 1000 2019 Balance 1000 / 1000 2019 Intake: IV 1000 / 1000 1900 / 1900 NS Inj 1,000 ML @ 70 mls/hr IV. 1000 / 1000 1900 / 1900 CONT .[id number] [facility] Rx#:[id number] Oral 120 / 120 Other: # Voids 2 2 Date of Last Bowel Movement 06/27/18 06/27/18 # Bowel Movements 1 Narrative: GENERAL: Well-nourished, well-developed middle-aged AA female patient in [facility]. SKIN: Warm and dry. No rash. HEENT: Normocephalic. Atraumatic. Pupils equal and round. Mucous membranes pink and moist. NECK: Supple. Trachea midline. CARDIOVASCULAR: Regular rate and rhythm. No murmur appreciated. RESPIRATORY: No accessory muscle use. Clear to auscultation. Breath sounds equal bilaterally. GASTROINTESTINAL: Abdomen soft, non-tender, nondistended. Normoactive bowel sounds x4. MUSCULOSKELETAL: No obvious deformities. Extremities without clubbing, cyanosis , or edema. NEUROLOGICAL: Awake and alert. No obvious cranial nerve deficits. Motor grossly within normal limits. Moving all extremities spontaneously. Normal speech. PSYCHIATRIC: Appropriate mood and affect; insight and judgment normal. - Detailed Eye Exam Visual acuity: Visual Acuity Visual Acuity Uncorrected [ 20/40 Bilateral] Visual Acuity Uncorrected [ 20/40 Right] Visual Acuity Uncorrected [ 20/50 Left] Results - Labs CBC & Chem 7: 06/26/18 20:55 06/26/18 20:55 Laboratory Results - last 24 hr 06/27/18 06/27/18 06/27/18 08:51 10:32 13:25 POC Glucose 82 71 Total Creatine Kinase 115 Troponin I 0.03 Triglycerides Cholesterol LDL Cholesterol, Calc HDL Cholesterol Cholesterol/HDL Ratio 06/27/18 06/27/18 06/28/18 17:39 20:41 08:06 POC Glucose 95 81 Total Creatine Kinase Troponin I Triglycerides 67 Cholesterol 223 H LDL Cholesterol, Calc 127 H HDL Cholesterol 82.3 H Cholesterol/HDL Ratio 2.70 06/28/18 08:34 POC Glucose 77 Total Creatine Kinase Troponin I Triglycerides Cholesterol LDL Cholesterol, Calc HDL Cholesterol Cholesterol/HDL Ratio - Imaging Impressions Carotid Doppler Study 06/27/18 00:00 CONCLUSION: 1. Right Internal Carotid Artery: No significant stenosis or atherosclerotic plaque is visualized. 2. Left Internal Carotid Artery: No significant stenosis or atherosclerotic plaque is visualized. 3. Occluded right vertebral artery. Antegrade flow in dominant left vertebral artery. Cervical Spine MRI 06/27/18 00:00 CONCLUSION: 1. Cervical spinal cord appears unremarkable. 2. Small broad-based protrusion at C5-6 causes mild canal stenosis. Chest CTA 06/27/18 00:00 CONCLUSION: 1. This study is negative for pulmonary embolism. Head MRI 06/27/18 00:00 CONCLUSION: 1. Negative MR Brain non contrast. Head MRA 06/27/18 00:00 CONCLUSION: 1. Negative MRA Cow ([employer]) non contrast. 2. Patent bilateral posterior communicating arteries. Thoracic Spine MRI 06/27/18 00:00 CONCLUSION: 1. Tiny central protrusion at T9-10. No canal stenosis. 2. Thoracic spinal cord is normal in signal intensity and caliber. Assessment and Plan - Plan 62-year-old female with past medical history of hypertension, hyperlipidemia and chronic back pain presents to the emergency department for the evaluation of multiple complaints. Right lower extremity weakness: Concern for TIA -Head CT, brain MRI, head MRA all unremarkable -Carotid U/s with no significant stenosis, however with occluded right vertebral artery. Antegrade flow in dominant left vertebral artery. -Neuro checks -Continue Aspirin -Echo unremarkable with EF 60-65%, mild MR, mild TR -Lipid profile with elevated cholesterol/LDL, will start statin, HgbA1c pending -Neurology consulted, appreciate assistance -PT/OT consulted, no PT needed after discharge Atypical Chest pain/shortness of breath: patient appears comfortable -CXR reviewed and unremarkable -records reviewed, the patient has had extensive cardiac work up with Nuclear stress test and cardiac catheterization -ACS ruled out with negative serial cardiac enzymes and EKG without acute ischemic changes -Given patient's history and recurrent admission for chest pain, 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 Seaman -CT-PA negative for PE -Dr. Seaman has ordered coronary artery CTA, otherwise no further cardiac work up Ear pain: secondary to cerumen impaction. Wax obscuring the tympanic membrane -No signs of infection on otoscopic exam -Irrigation of the ear canal performed in the ED -Symptoms resolved Hypertension/hyperlipidemia/chronic back pain: chronic -Continue home medications -Monitor BP, adjust antihypertensives as needed DVT Prophylaxis: Heparin sq Discharge Planning: Await neurology and cardiology clearance.
[2018-06-28] MEDS: Sertraline 50 MG Tablet PO SCH (09:21)
[2018-06-28] MEDS: Aspirin 325 MG Tablet PO SCH (09:21)
[2018-06-28] MEDS: amLODIPine 5 MG Tablet PO SCH (09:22)
[2018-06-28] MEDS: Senna/Docusate Sodium 8.6/50 MG Tablet PO SCH ×2 (09:22→21:29)
[2018-06-28] MEDS ORDERED: Metoprolol Inj 5 MG/5 ML Vial IV.PUSH PRN (11:50)
[2018-06-28] MEDS ORDERED: Metoprolol Tartrate 50 MG Tablet PO SCH (12:00)
[2018-06-28] MEDS ORDERED: Nitroglycerin SL (Override) 0.4 MG Tab SL ONE (13:27)
--- NOTE | 2018-06-28 15:20 | CT ---
EXAM DATE: 06/28/2018 2:49 PM EDT AGE/SEX: 62 years / Female INDICATIONS: Chest pain. CLINICAL DATA: This is the patient's initial encounter. Patient reports that signs and symptoms have been present for 1 day and indicates a pain score of 8/10. MEDICAL/SURGICAL HISTORY: Hypertension. Hysterectomy. hernia repair RADIATION DOSE: 3.86 CTDI (mGy) COMPARISON: [facility], CTA PULMONARY W CONTRAST W 3D, 06/27/2018. . STUDY QUALITY: good TECHNIQUE: The patient was given beta-blockers prior to the procedure. . Multiple contiguous axial i mages were obtained through the heart during bolus infusion of 90 ml Omnipaque 350 (iohexol) nonioni c water-soluble contrast as a single exam dose. Images were acquired during peak arterial contrast. Images were reconstructed using a retrospective gating algorithm including single sector and multi-se ctor algorithms at multiple phases of the cardiac cycle. Images were interpreted using a combination of 2D and 3D visualization modes including curved planar reformation, thin slab maximum intensity pro jection and volume rendering in order to evaluate cardiac structure, morphology and function. Using a utomated exposure control and adjustment of the mA and/or kV according to patient size, radiation dos e was kept as low as reasonably achievable to obtain optimal diagnostic quality images. DICOM format image data is available electronically for review and comparison. FINDINGS: VESSEL ANALYSIS: There are three aortic valve leaflets with normal origin of the coronary ostia. DOMINANCE: The coronary system is right dominant. LEFT MAIN: Normal size vessel without calcification or stenosis. LAD: Normal size vessel without calcification or stenosis, quite tortuous. CIRCUMFLEX: Normal size vessel without calcification or stenosis. RCA: Normal size vessel without calcification or stenosis CONCLUSION: 1. No significant atherosclerotic disease identified. I don't see any visible stenosis. No concernin g features are identified. Electronically signed by: Haseeb Serrato MD 06/28/2018 3:19 PM EDT
[2018-06-28 16:03] LABS: Hemoglobin A1c 5.8 % (4.3-6.0)
[2018-06-29] MEDS: Heparin - SQ 10,000 UNITS/ML Vial SQ SCH ×2 (02:54→14:46)
[2018-06-29] MEDS: Insulin NovoLOG Aspart Correctional Sugar Inj SQ SCH ×3 (03:42→13:36)
[2018-06-29 04:30] VITALS: RESP 16
[2018-06-29] MEDS: Sertraline 50 MG Tablet PO SCH (09:39)
[2018-06-29] MEDS: Aspirin 325 MG Tablet PO SCH (09:39)
[2018-06-29] MEDS: Senna/Docusate Sodium 8.6/50 MG Tablet PO SCH (09:39)
[2018-06-29] MEDS: amLODIPine 5 MG Tablet PO SCH (09:39)
[2018-06-29 12:00] VITALS: BP 107/55; PULSE 61; TEMP 98; O2SAT 97
--- NOTE | 2018-06-29 13:52 | XR ---
EXAM DATE: 06/29/2018 1:35 PM EDT AGE/SEX: 62 years / Female INDICATIONS: Back pain, H/O fall. CLINICAL DATA: This is the patient's subsequent encounter. Patient reports that signs and symptoms h ave been present for 3 days and indicates a pain score of 9/10. MEDICAL/SURGICAL HISTORY: . Pt. States she fell a few months ago. Hypertension Hysterectomy. Ce sarean section. Hernia repair. . Hysterectomy. section. Hernia repair. COMPARISON: No prior exams available for comparison. FINDINGS: 5 lumbar type vertebral is visualized. There is minimal loss of vertebral height at L3 age indetermin ate. There are mild degenerative changes at L5-S1. SI joints are normal. CONCLUSION: Mild facet degenerative changes. Minimal loss of body height L3 age indeterminate. Electronically signed by: Asael May MD 06/29/2018 1:51 PM EDT
--- NOTE | 2018-06-29 14:54 | P.DS ---
Date of admission: 06/27/18 00:03 Primary care physician: Fortunato Nix Anticipated date of discharge: 06/29/18 Brief History from admission: 62-year-old female with past medical history of hypertension, hyperlipidemia and chronic back pain presents to the emergency department for the evaluation of multiple complaints. The patient reports right ear pain that she was seen by her primary care provider for and referred to ENT. She also complains of jaw pain, dizziness, unstable gait and right lower extremity weakness. She states she also has chest pain and shortness of breath. She denies any fevers/ chills. No abdominal pain. No nausea/vomiting/diarrhea. Patient update on day of discharge: Follow-up for multiple vague complaints including chest pain, weakness, back pain. Patient reports overall feeling better today. She denies any episodes of chest pain today. She complained to the nurse of some lower back pain today , however has been able to ambulate with PT. We discussed possibility of her intermittent chest pains being GI related as she has had an extensive negative cardiac workup. She states she has not had an EGD or colonoscopy in a long time. Recommended her to follow-up with GI as outpatient for further evaluation. She states she does get heartburn frequently, and takes Prilosec for this but not on a regular basis. She denies any nausea or vomiting. Denies any hematochezia or melena. Patient plans to follow-up with GI. Also recommended to follow-up with radiologist Dr. Seaman and neurology. Patient verbalized understanding of plan. She agrees to discharge home today. DS: Diagnosis - Discharge Diagnosis (1) Atypical chest pain Status: Acute (2) Right leg weakness Status: Acute (3) HLD (hyperlipidemia) Status: Acute (4) History of hypertension Status: Chronic DS: Medications - Discharge Medications Prescriptions: aspirin [Ecotrin Low Strength] 81 mg PO DAILY #30 tab atorvastatin 40 mg PO HS #30 tab pantoprazole 40 mg PO DAILY #30 tab DS: Summary Hospital Course: 62-year-old female with past medical history of hypertension, hyperlipidemia and chronic back pain presents to the emergency department for the evaluation of multiple complaints. Right lower extremity weakness: Concern for TIA/CVA. Head CT, brain MRI, head MRA all unremarkable. Carotid U/s with no significant stenosis, however with occluded right vertebral artery. Antegrade flow in dominant left vertebral artery. Neuro checks. Continued Aspirin. Echo unremarkable with EF 60-65%, mild MR, mild TR. Lipid profile with elevated cholesterol/LDL, started on statin. HgbA1c 5.8. Neurology consulted, appreciate assistance. PT/OT consulted, no PT needed after discharge. Symptoms improved, patient able to ambulate without difficulty. Atypical Chest pain/shortness of breath: patient appears comfortable. CXR reviewed and unremarkable. Records reviewed, the patient has had extensive cardiac work up with recent negative Nuclear stress test and cardiac catheterizations. ACS ruled out with negative serial cardiac enzymes and EKG without acute ischemic changes. Given patient's history and recurrent admission for chest pain, consulted the patient's special education associate Dr. Seaman. CT-PA negative for PE. Dr. Seaman ordered coronary artery CTA, otherwise no further cardiac work up. CTA coronaries negative. Discussed with the patient possibly GI related , recommended outpatient work up with EGD and started on Protonix at discharge. No emergent need for GI work up in hospital, patient is not anemic and is tolerating oral intake. Ear pain: secondary to cerumen impaction. Wax obscuring the tympanic membrane. No signs of infection on otoscopic exam. Irrigation of the ear canal performed in the ED. Symptoms resolved. Hypertension/hyperlipidemia/chronic back pain: chronic. Continue home medications. Pain control with patient's home Tramadol. Patient complained of recurrent low back pain, however lumbar spine xray with no acute findings. Recommend outpatient f/up with ortho or pain management. - Time Spent with Patient Total time spent providing and/or coordinating discharge services: Less than 30 minutes - Quality: VTE Deep Vein Thrombosis/Pulmonary Embolism Present on Admission: No Exam Vital signs: Vital Signs 06/28/18 15:39 06/28/18 19:47 06/28/18 20:00 Temperature 98.4 F 98.3 F Pulse Rate 62 57 L 57 L Respiratory Rate 18 16 16 Blood Pressure 103/57 L 104/63 Pulse Oximetry 100 97 06/28/18 23:00 06/29/18 00:29 06/29/18 04:00 Temperature 98.0 F Pulse Rate 48 L 55 L 67 Respiratory Rate 14 Blood Pressure 112/57 L Pulse Oximetry 96 06/29/18 04:28 06/29/18 05:21 06/29/18 08:00 Temperature 98.4 F 98.2 F Pulse Rate 51 L 60 49 L Respiratory Rate 16 16 Blood Pressure 126/59 L 112/56 L Pulse Oximetry 97 95 06/29/18 11:58 Temperature 98.0 F Pulse Rate 61 Respiratory Rate 16 Blood Pressure 107/55 L Pulse Oximetry 97 Intake & Output 06/28/18 06/29/18 06/29/18 18:59 06:59 18:59 Intake Total 1000 / 1000 Balance 1000 / 1000 Intake: IV 1000 / 1000 NS Inj 1,000 ML @ 70 mls/hr IV. 1000 / 1000 CONT .[id number] [facility] Rx#:[id number] Other: # Voids 3 Date of Last Bowel Movement 06/27/18 06/27/18 Narrative: GENERAL: Well-nourished, well-developed middle-aged AA female patient in [facility]. SKIN: Warm and dry. No rash. HEENT: Normocephalic. Atraumatic. Pupils equal and round. Mucous membranes pink and moist. CARDIOVASCULAR: Regular rate and rhythm. No murmur appreciated. RESPIRATORY: No accessory muscle use. Clear to auscultation. Breath sounds equal bilaterally. GASTROINTESTINAL: Abdomen soft, non-tender, nondistended. Normoactive bowel sounds x4. MUSCULOSKELETAL: No obvious deformities. Extremities without clubbing, cyanosis , or edema. NEUROLOGICAL: Awake and alert. No obvious cranial nerve deficits. 5/5 strength in bilateral upper and lower extremities. Normal speech. PSYCHIATRIC: Appropriate mood and affect; insight and judgment normal. - Detailed Eye Exam Visual acuity: Visual Acuity Visual Acuity Uncorrected [ 20/40 Bilateral] Visual Acuity Uncorrected [ 20/40 Right] Visual Acuity Uncorrected [ 20/50 Left] Results Procedures completed during hospitalization: None. Labs on day of discharge: Labs from last 24 hours 06/29/18 06/29/18 06/29/18 12:42 08:26 03:41 POC Glucose 120 H 96 87 Hemoglobin A1c 06/28/18 08:06 POC Glucose Hemoglobin A1c 5.8 - Impressions ITS Impressions Head CT 06/26/18 18:50 CONCLUSION: 1. No acute intracranial abnormalities. . Chest X-Ray 06/26/18 20:30 CONCLUSION: No active disease. Tortuous aorta. Carotid Doppler Study 06/27/18 00:00 CONCLUSION: 1. Right Internal Carotid Artery: No significant stenosis or atherosclerotic plaque is visualized. 2. Left Internal Carotid Artery: No significant stenosis or atherosclerotic plaque is visualized. 3. Occluded right vertebral artery. Antegrade flow in dominant left vertebral artery. Cervical Spine MRI 06/27/18 00:00 CONCLUSION: 1. Cervical spinal cord appears unremarkable. 2. Small broad-based protrusion at C5-6 causes mild canal stenosis. Chest CTA 06/27/18 00:00 CONCLUSION: 1. This study is negative for pulmonary embolism. Head MRI 06/27/18 00:00 CONCLUSION: 1. Negative MR Brain non contrast. Head MRA 06/27/18 00:00 CONCLUSION: 1. Negative MRA [place] ([place]) non contrast. 2. Patent bilateral posterior communicating arteries. Thoracic Spine MRI 06/27/18 00:00 CONCLUSION: 1. Tiny central protrusion at T9-10. No canal stenosis. 2. Thoracic spinal cord is normal in signal intensity and caliber. Coronary Angiography CT 06/28/18 00:00 CONCLUSION: 1. No significant atherosclerotic disease identified. I don't see any visible stenosis. No concerning features are identified. Lumbar Spine X-Ray 06/29/18 00:00 CONCLUSION: Mild facet degenerative changes. Minimal loss of body height L3 age indeterminate. Discharge Plan - Discharge Disposition Patient Disposition: 01 Discharge Home - Discharge Condition Condition: Stable - Discharge Order Discharge Orders: Discharge Order (Routine); Ordered 06/29/18 Ordered By: Rhiannon Stone - Discharge Details Anticipated Discharge Date: 06/29/18 Discharge Comment: Ok to discharge if lumbar xray unremarkable, call me with any abnormal results. - Physicians Team Primary Care Provider: Fortunato Nix Attending Provider: Jenae Doran Other Providers: Franklin Heredia MD, PhD ; Steph Seaman MD
== END 2018-06-29 16:09 | disposition home or self-care (01) ==
LOC: NEPE 14:56 → NEDA 14:56 → NEPGCP 06-27 01:15
PROVIDERS: ADMIT Family Medicine; ATTEND Family Medicine
DX: F17.210 Nicotine dependence, cigarettes, uncomplicated; G89.29 Other chronic pain; R07.89 Other chest pain; M62.81 Muscle weakness (generalized); M54.5 Low back pain; Z82.49 Family history of ischemic heart disease and other diseases of the circulatory system; M48.00 Spinal stenosis, site unspecified; E78.00 Pure hypercholesterolemia, unspecified; E78.5 Hyperlipidemia, unspecified; H61.21 Impacted cerumen, right ear; Z90.710 Acquired absence of both cervix and uterus; H92.01 Otalgia, right ear; I10 Essential (primary) hypertension

== ENCOUNTER 2018-07-19 16:43 | Observation (INO) ==
--- NOTE | 2018-07-19 21:43 | ED ---
HPI General Chief Complaint: Chest Pain Stated Complaint: chest pain Time Seen by Provider: 07/19/18 21:02 Source: patient Mode of arrival: ambulatory Limitations: no limitations History of Present Illness HPI narrative: 62-year-old female presents to the emergency department for complaint of left-sided chest tightness and heaviness radiating into the left jaw and upper extremity since this morning. Patient states she has not felt well since last evening. Patient states left-sided symptoms have been since this morning but had right-sided pain last evening. Patient also complains of headache and dizziness. Patient had nausea without vomiting. No fever or chills. No injury or fall. Patient does not report any weakness of the left upper extremity or left lower extremity. She was recently hospitalized for possible TIA and had a cardiac evaluation with CTA coronary vessels revealed no significant coronary vessel disease. Patient was evaluated by Dr. Seaman who she is seen in the past from cardiology. Patient has history of hypertension and dyslipidemia. Patient rates her chest pain 10/10 in intensity. Patient states she has had associated shortness of breath nausea and sweats. Patient is not report any mid scapular pain. Patient has taken pain medication tramadol for her chronic pain without symptom relief. Patient does not report any visual disturbance loss of vision double vision change in speech difficulty swallowing balance disturbance or new right upper extremity or left left right lower extremity of the upper extremity or left lower extremity numbness tingling or weakness but does have discomfort in the left upper extremity and left jaw associated with heaviness in her chest. Patient does not describe any pleuritic chest pain or lower extremity pain or swelling. Due to persistent symptoms presents at this time for further evaluation. MD complaint: Reports chest pain STEMI Alert: No Onset (ago): hour(s) Duration: constant Onset: awoke with symptoms Pain location: Reports left chest Severity: similar to previous episodes Severity scale (1-10): 10 Quality: Reports tightness, heaviness and dull Pain radiation: Reports LUE, neck and jaw/teeth (left jaw) Relieving factors: nothing Exacerbating factors: nothing Context: Reports recent illness and new medications (for Cholesterol); Denies recent surgery, recent immobilization, recent travel, trauma/injury and history of DVT/PE Associated symptoms: Reports nausea, diaphoresis and dyspnea; Denies vomiting, sense of impending doom, syncope, palpitations, fever, cough and leg swelling Treatments prior to arrival chest pain: Reports none Related Data On Oral Contraceptives: No Home Medications Medication Instructions Recorded Confirmed amlodipine 5 mg PO DAILY 05/23/18 07/19/18 sertraline 25 mg PO DAILY 05/23/18 07/19/18 tramadol 50 mg PO Q8HR PRN 05/23/18 07/19/18 Previous Rx's Medication Instructions Recorded aspirin [Ecotrin Low Strength] 81 mg PO DAILY #30 tab 06/29/18 atorvastatin 40 mg PO HS #30 tab 06/29/18 pantoprazole 40 mg PO DAILY #30 tab 06/29/18 Allergies Allergy/AdvReac Type Severity Reaction Status Date / Time naproxen AdvReac Severe NAUSEA Verified 06/26/18 18:15 Review of Systems ROS: all other systems reviewed are negative PMFSH History History Provided By: Patient and Medical Record Medical History Medical History Carpal tunnel syndrome (Acute) Chronic back pain (Acute) H/O: hysterectomy (Acute) HTN (hypertension) (Acute) Heart murmur (Acute) Heart valve problem (Acute) Hyperlipidemia (Acute) Surgical History Surgical History H/O section (Acute) History of carpal tunnel release (Acute) Hx of hernia repair (Acute) Family History Family History Other Coronary artery disease Social History Social History Substance History: No History of Abuse Second Hand Smoke Exposure: No Smoking Status: Former smoker Tobacco Type: Cigarettes How Often Do You Have a Drink Containing Alcohol: Never Hx Recent Travel: No Recent Travel in [facility] within the Last 8 Weeks: No Recent Out of Country Travel within the Last 8 Weeks: No Exam Narrative Exam Narrative: GENERAL: Well-nourished, well-developed patient. GCS 15. SKIN: Focused skin assessment warm/dry. HEAD: Normocephalic. EYES: No scleral icterus. No injection or drainage. NECK: Supple, trachea midline. No JVD or lymphadenopathy. CARDIOVASCULAR: Regular rate and rhythm without murmurs, gallops, or rubs. RESPIRATORY: Breath sounds equal bilaterally. No accessory muscle use. GASTROINTESTINAL: Abdomen soft, non-tender, nondistended. MUSCULOSKELETAL: No cyanosis, or edema. BACK: Nontender without obvious deformity. No CVA tenderness. Course Initial Documented Vital Signs Temperature 98.8 F 07/19/18 16:59 Pulse Rate 55 L 07/19/18 16:59 Respiratory Rate 14 07/19/18 16:59 Blood Pressure 108/53 L 07/19/18 16:59 Pulse Oximetry 100 10 16:59 Last Documented Vital Signs Temperature 98.8 F 07/19/18 16:59 Pulse Rate 50 L 07/20/18 00:00 Respiratory Rate 16 07/20/18 00:00 Blood Pressure 127/72 07/20/18 00:00 Pulse Oximetry 97 07/20/18 00:00 Medical Decision Making MDM Narrative Medical decision making narrative: At 1 AM cardiac enzymes are found to be in normal range of the values are grossly within normal limits but [id number]- old female with complaint of left-sided chest pain radiating to the neck and jaw with reported history of hypertension and dyslipidemia; EKG performed which shows sinus bradycardia rate [address] elevation injury pattern or ectopy noted patient placed on manager cardiac IV access obtained specimens collected and sent for resulting for complaint of 10/10 chest pain patient given 1 sublingual nitroglycerin 0.4 mg and a bolus of normal saline. Patient reports improvement of chest heaviness and tightness after sublingual nitroglycerin x1 At 1 AM patient reports chest discomfort has returned with tightness repeat sublingual nitro glycerin administered cardiac enzymes are found to be in normal range EKG shows no acute injury pattern change however in view of recurrent chest pain will place patient in chest pain center for further evaluation of chest pain. OBS to MEDICAL ACCOUNTING CLERK risk: female age 62 with htn and dyslipidemia, CP responsive to SL NTG Medical Screen Exam Complete: Yes Emergency Medical Condition: Yes Differential Diagnosis Differential Diagnosis: Atypical chest pain, ACS, CT, arrhythmia, disturbance, thyroid dysfunction, anemia, dizziness, vertigo, TIA CVA Medical Records Medical records reviewed: Yes I reviewed the patient's medical records. Lab Data Result diagrams: 07/19/18 21:00 07/19/18 21:00 Lab Results 07/19/18 07/19/18 07/19/18 Range/Units 21:00 21:00 21:00 WBC 5.2 (4.0-11.0) th/mm3 RBC 3.75 L (4.00-5.30) mil/mm3 Hgb 12.0 (11.6-15.3) gm/dL Hct 33.8 L (35.0-46.0) % MCV 90.3 (80.0-100.0) fL MCH 32.1 (27.0-34.0) pg MCHC 35.5 (32.0-36.0) % RDW 14.8 (11.6-17.2) % Plt Count 232 (150-450) th/mm3 MPV 9.1 (7.0-11.0) fL Neut % (Auto) 31.3 (16.0-70.0) % Lymph % (Auto) 55.4 H (9.0-44.0) % [place] % (Auto) 8.4 H (0.0-8.0) % Eos % (Auto) 3.8 (0.0-4.0) % Baso % (Auto) 1.1 (0.0-2.0) % Neut # (Auto) 1.6 L (1.8-7.7) th/mm3 Lymph # (Auto) 2.9 (1.0-4.8) th/mm3 [place] # (Auto) 0.4 (0.0-0.9) th/mm3 Eos # (Auto) 0.2 (0.0-0.4) th/mm3 Baso # (Auto) 0.1 (0.0-0.2) th/mm3 WBC Differential . Differential Comment Auto diff final Sodium 142 (136-145) meq/L Potassium 3.5 (3.5-5.1) meq/L Chloride 109 H (98-107) meq/L Carbon Dioxide 26.5 (21.0-32.0) meq/L Anion Gap 7 (5-15) meq/L BUN 11 (7-18) mg/dL Creatinine 1.18 H (0.50-1.00) mg/dL Estimated GFR 56 L (>89) mL/min Random Glucose 83 (74-106) mg/dL Calcium 9.4 (8.5-10.1) mg/dL Magnesium (1.5-2.5) mg/dL Total Bilirubin 0.3 (0.2-1.0) mg/dL AST 17 (15-37) U/L ALT 18 (10-53) U/L Alkaline Phosphatase 72 (45-117) U/L Total Creatine Kinase (26-192) U/L CK-MB (CK-2) (0.5-3.6) ng/mL Troponin I Less than 0.02 L (0.02-0.05) ng/mL B-Natriuretic Peptide 36 (0-100) pg/mL Total Protein 7.5 (6.4-8.2) g/dL Albumin 3.8 (3.4-5.0) g/dL Lipase (73-393) U/L TSH (0.358-3.740) uIU/mL 07/19/18 07/19/18 07/19/18 Range/Units 21:00 21:00 21:00 WBC (4.0-11.0) th/mm3 RBC (4.00-5.30) mil/mm3 Hgb (11.6-15.3) gm/dL Hct (35.0-46.0) % MCV (80.0-100.0) fL MCH (27.0-34.0) pg MCHC (32.0-36.0) % RDW (11.6-17.2) % Plt Count (150-450) th/mm3 MPV (7.0-11.0) fL Neut % (Auto) (16.0-70.0) % Lymph % (Auto) (9.0-44.0) % [place] % (Auto) (0.0-8.0) % Eos % (Auto) (0.0-4.0) % Baso % (Auto) (0.0-2.0) % Neut # (Auto) (1.8-7.7) th/mm3 Lymph # (Auto) (1.0-4.8) th/mm3 [place] # (Auto) (0.0-0.9) th/mm3 Eos # (Auto) (0.0-0.4) th/mm3 Baso # (Auto) (0.0-0.2) th/mm3 WBC Differential Differential Comment Sodium (136-145) meq/L Potassium (3.5-5.1) meq/L Chloride (98-107) meq/L Carbon Dioxide (21.0-32.0) meq/L Anion Gap (5-15) meq/L BUN (7-18) mg/dL Creatinine (0.50-1.00) mg/dL Estimated GFR (>89) mL/min Random Glucose (74-106) mg/dL Calcium (8.5-10.1) mg/dL Magnesium 2.1 (1.5-2.5) mg/dL Total Bilirubin (0.2-1.0) mg/dL AST (15-37) U/L ALT (10-53) U/L Alkaline Phosphatase (45-117) U/L Total Creatine Kinase 130 (26-192) U/L CK-MB (CK-2) Less than 1.0 (0.5-3.6) ng/mL Troponin I (0.02-0.05) ng/mL B-Natriuretic Peptide (0-100) pg/mL Total Protein (6.4-8.2) g/dL Albumin (3.4-5.0) g/dL Lipase 145 (73-393) U/L TSH 1.950 (0.358-3.740) uIU/mL Imaging Data Radiologist's impression: Chest X-Ray 07/19/18 21:03 CONCLUSION: No acute cardiopulmonary process. Head CT 07/19/18 21:35 CONCLUSION: 1. No acute abnormality seen. 2. Low density in the posterior parietal periventricular white matter likely related to small vessel ischemic change. . ECG Data EKG Prior to Arrival: No Prior ECG tracings: not available for review Interpretation: EKG: Sinus bradycardia rate [address] elevation injury pattern or ectopy noted Discharge Plan Discharge Disposition Patient Disposition: 30 Still Patient Discharge Condition Condition: Stable Discharge Details Diagnosis: Chest pain Physicians Team ED Provider: Megan Victoria Primary Care Provider: Fortunato Nix Rxs /Orders / Referrals /Forms Prescriptions: No Action amlodipine 5 mg Tablet 5 mg PO DAILY RF: 0 tramadol 50 mg Tablet 50 mg PO Q8HR PRN (Reason: Back Pain) RF: 0 sertraline 25 mg Tablet 25 mg PO DAILY RF: 0 atorvastatin 40 mg Tablet 40 mg PO HS Qty: 30 RF: 0 pantoprazole 20 mg Tablet,Delayed Release (Dr/Ec) 40 mg PO DAILY Qty: 30 RF: 0 aspirin [Ecotrin Low Strength] 81 mg Tablet,Delayed Release (Dr/Ec) 81 mg PO DAILY Qty: 30 RF: 0 Discharge Instructions Patient Printed Instructions: Chest Pain (ED) Discharge Interventions Interventions: Vital Signs Last Done: 07/19/18 23:30 Status ED Status: With Doctor
[2018-07-19 21:46] LABS: Baso # (Auto) 0.1 th/mm3 (0.0-0.2); Baso % (Auto) 1.1 % (0.0-2.0); Eos # (Auto) 0.2 th/mm3 (0.0-0.4); Eos % (Auto) 3.8 % (0.0-4.0); Hematocrit 33.8 % (35.0-46.0); Lymph # (Auto) 2.9 th/mm3 (1.0-4.8); Lymph % (Auto) 55.4 % (9.0-44.0); Mean Corpuscular HGB Conc 35.5 % (32.0-36.0); Mean Corpuscular Hemoglobin 32.1 pg (27.0-34.0); Mean Corpuscular Volume 90.3 fL (80.0-100.0); Mean Platelet Volume 9.1 fL (7.0-11.0); Mono # (Auto) 0.4 th/mm3 (0.0-0.9); Mono % (Auto) 8.4 % (0.0-8.0); Neut # (Auto) 1.6 th/mm3 (1.8-7.7); Neut % (Auto) 31.3 % (16.0-70.0); Platelet Count 232 th/mm3 (150-450); Red Blood Count 3.75 mil/mm3 (4.00-5.30); Red Cell Distribution Width 14.8 % (11.6-17.2); White Blood Count 5.2 th/mm3 (4.0-11.0)
--- NOTE | 2018-07-19 21:46 | XR ---
EXAM DATE: 07/19/2018 9:03 PM EDT AGE/SEX: 62 years / Female INDICATIONS: Chest pain CLINICAL DATA: This is the patient's initial encounter. Patient reports that signs and symptoms have been present for 1 day and indicates a pain score of 3/10. MEDICAL/SURGICAL HISTORY: . Hypertension . Hysterectomy. section. Hernia repair. . H ysterectomy. COMPARISON: [facility] – [place], CHEST 1V SINGLE AP, 06/26/2018. . FINDINGS: A single AP view of the chest demonstrates the lungs to be symmetrically aerated without evidence of mass, infiltrate or effusion. The cardiomediastinal contours are unremarkable. Osseous structures a re intact. CONCLUSION: No acute cardiopulmonary process. Electronically signed by: Avery Pimentel MD 07/19/2018 9:45 PM EDT
[2018-07-19 21:52] LABS: Alanine Aminotransferase 18 U/L (10-53); Albumin 3.8 g/dL (3.4-5.0); Anion Gap 7 meq/L (5-15); Aspartate Aminotransferase 17 U/L (15-37); Blood Urea Nitrogen 11 mg/dL (7-18); Calcium 9.4 mg/dL (8.5-10.1); Carbon Dioxide 26.5 meq/L (21.0-32.0); Chloride 109 meq/L (98-107); Glomerular Filtration Rate 56 mL/min (>89); Glucose,Random 83 mg/dL (74-106); Potassium 3.5 meq/L (3.5-5.1); Sodium 142 meq/L (136-145)
[2018-07-19 21:56] LABS: Alkaline Phosphatase 72 U/L (45-117); Total Protein 7.5 g/dL (6.4-8.2)
[2018-07-19] MEDS ORDERED: Sodium Chlor 0.9% Inj 500 ML IV.SIG SCH (22:00)
[2018-07-19 22:11] LABS: Magnesium 2.1 mg/dL (1.5-2.5)
[2018-07-19 22:13] LABS: Creatine Kinase 130 U/L (26-192)
--- NOTE | 2018-07-19 23:00 | CT ---
EXAM DATE: 07/19/2018 10:39 PM EDT AGE/SEX: 62 years / Female INDICATIONS: Dizziness. CLINICAL DATA: This is the patient's initial encounter. Patient reports that signs and symptoms have been present for 1 day and indicates a pain score of 0/10. MEDICAL/SURGICAL HISTORY: Hypertension. Hysterectomy. RADIATION DOSE: 56.35 CTDI (mGy) [place] [facility] [place]. . TECHNIQUE: CT of the head without contrast. Using automated exposure control and adjustment of the mA and/or kV according to patient size, radiation dose was kept as low as reasonably achievable to ob tain optimal diagnostic quality images. DICOM format image data is available electronically for revi ew and comparison. FINDINGS: Cerebrum: The ventricles are normal for age. There is decreased density in the parietal periventricu lar regions. No evidence of midline shift, mass lesion, hemorrhage or acute infarction. No extraaxia l fluid collections are seen. Posterior Fossa: The cerebellum and brainstem are intact. The 4th ventricle is midline. The cerebe llopontine angle is unremarkable. Extracranial: The visualized portion of the orbits is intact. Skull: The calvaria is intact. No evidence of skull fracture. CONCLUSION: 1. No acute abnormality seen. 2. Low density in the posterior parietal periventricular white matter likely related to small vessel ischemic change. . Electronically signed by: Avery Pimentel MD 07/19/2018 10:59 PM EDT
[2018-07-20 02:17] LABS: Troponin I 0.03 ng/mL (0.02-0.05)
[2018-07-20 05:41] LABS: Troponin I 0.02 ng/mL (0.02-0.05)
[2018-07-20] MEDS: Aspirin 325 MG Tablet PO SCH (08:15)
[2018-07-20] MEDS: Sertraline 50 MG Tablet PO SCH (09:52)
[2018-07-20] MEDS: Pantoprazole Sodium 20 MG DR Tablet PO SCH (09:53)
[2018-07-20] MEDS: amLODIPine 5 MG Tablet PO SCH (09:53)
--- NOTE | 2018-07-20 10:08 | P.PNCA ---
Subjective Interval history: Pleasant 62-year-old lady who was admitted to the chest pain center for complaints of chest tightness and heaviness. However on evaluating her and entirely different history was obtained. Her primary concern was dizziness which is described as vertiginous, generalized weakness, and some right-sided weakness and tingling. She has previous admissions for possible TIAs including extensive neurologic studies. In reviewing her history it does indeed seem that she has had further deterioration of her neurologic status with symptoms focusing to the right and in the cerebral pontine distribution. Review of her studies with Dr. May in radiology failed to demonstrate a discrete lesion but do show increasing atrophy and ischemic change. In association with her current symptoms it was strongly felt that further evaluation involving a neurologist would be appropriate at this time. She has had also prior coronary evaluation including a CTA of her coronary vessels revealing no significant lesions she has also been followed routinely by Dr. Seaman including a cath in 16 which showed no significant disease. Further cardiac evaluation at this time is not warranted. After extensive discussion a decision was made to readmit her to the hospital for evaluation by neurologist and a repeat contrast CT of the brain to document any possible progression of disease. Medications and Allergies Active Medications: Active Medications Amlodipine Besylate (Norvasc) 5 mg PO DAILY [facility] Last Admin: 07/20/18 09:53 Dose: 5 mg Aspirin (Aspirin) 325 mg PO DAILY [facility] Last Admin: 07/20/18 08:15 Dose: 325 mg Aspirin (Ecotrin) 81 mg PO DAILY [facility] Atorvastatin Calcium (Lipitor) 40 mg PO HS [facility] Sodium Chloride (Ns Inj) 500 mls @ 0 mls/hr IV.SIG BOLUS [facility] Last Infusion: 07/19/18 22:54 Dose: Infused Miscellaneous (Pill Splitter) 1 each OTHER DAILY [facility] Nitroglycerin (Nitrostat Sl) 0.4 mg SL Q5M PRN PRN Reason: CHEST PAIN Pantoprazole Sodium (Protonix) 40 mg PO DAILY [facility] Last Admin: 07/20/18 09:53 Dose: 40 mg Sertraline HCl (Zoloft) 25 mg PO DAILY [facility] Last Admin: 07/20/18 09:52 Dose: 25 mg Sodium Chloride (Ns Flush) 2 ml IV.FLUSH BID [facility] Last Admin: 07/20/18 08:16 Dose: 2 ml Sodium Chloride (Ns Flush) 2 ml IV.FLUSH PRN PRN PRN Reason: FLUSH AFTER USING IV ACCESS Tramadol HCl (Ultram) 50 mg PO Q8HR PRN PRN Reason: Back Pain Last Admin: 07/20/18 09:53 Dose: 50 mg Allergies Allergy/AdvReac Type Severity Reaction Status Date / Time naproxen AdvReac Severe NAUSEA Verified 06/26/18 18:15 Home Medications Medication Instructions Recorded Confirmed Type amlodipine 5 mg PO DAILY 05/23/18 07/19/18 History sertraline 25 mg PO DAILY 05/23/18 07/19/18 History tramadol 50 mg PO Q8HR PRN 05/23/18 07/19/18 History Physical Exam Vital signs: Vital Signs 07/19/18 16:59 07/19/18 21:45 07/19/18 21:53 Temperature 98.8 F Pulse Rate 55 L 51 L Respiratory Rate 14 16 8 L Blood Pressure 108/53 L 149/86 H Pulse Oximetry 100 98 07/19/18 23:30 07/20/18 00:00 07/20/18 02:04 Temperature Pulse Rate 43 L 50 L 46 L Respiratory Rate 16 16 18 Blood Pressure 150/74 H 127/72 127/65 Pulse Oximetry 100 97 96 07/20/18 04:00 07/20/18 08:00 Temperature 97.7 F 98.2 F Pulse Rate 51 L 47 L Respiratory Rate 14 16 Blood Pressure 132/75 143/70 H Pulse Oximetry 97 100 Intake & Output 07/19/18 07/20/18 07/20/18 18:59 06:59 18:59 Intake Total 500 / 500 Balance 500 / 500 Weight 55.338 kg 55.338 kg Intake: IV 500 / 500 NS Inj 500 ML @ Wide Open IV. 500 / 500 SIG BOLUS [facility] Rx#:[id number] Other: # Voids 2 Weight On Admission 55.338 kg Narrative: Physical evaluation was first carried out by the physician construction producer and as documented by him demonstrating some cranial nerve dysfunction. Repeat evaluation was carried out by me personally in concert with the construction producer. This patient has been seen by me previously and demonstrates obvious deterioration in general alertness awareness Head normocephalic atraumatic Eyes pupils are equal and respond sluggishly to light but extraocular movements show break in fusion of the left eye both in the left upper outer gaze and in convergence. Mouth mucous membranes moist tongue well papillated no lesions Neck supple no JVD masses nodes or bruits Chest clear to auscultation with no rales wheezes or rhonchi Cardiovascular regular sinus rhythm without gallop rub or murmur Abdomen soft nontender Neurologic cranial nerves other than ophthalmic are generally intact but 2 separate observers felt that there was a slight weakness of the left face. Motor strength both right upper and lower extremity was mildly weak right upper particularly in extension but this was a subtle finding and difficult to determine if affected by patient's motivation since she seemed to have difficulty concentrating. Because of her complaints of vertigo and statement that her legs feel weak and shaky she was not tested standing for balance or coordination. Results 07/19/18 21:00 07/19/18 21:00 Cardiac Enzymes 07/19/18 07/19/18 07/19/18 Range/Units 21:00 21:00 21:00 AST 17 (15-37) U/L CK-MB (CK-2) Less than 1.0 (0.5-3.6) ng/mL Troponin I Less than 0.02 L (0.02-0.05) ng/mL B-Natriuretic Peptide 36 (0-100) pg/mL 07/20/18 07/20/18 Range/Units 01:30 05:01 AST (15-37) U/L CK-MB (CK-2) (0.5-3.6) ng/mL Troponin I 0.03 0.02 (0.02-0.05) ng/mL B-Natriuretic Peptide (0-100) pg/mL Coagulation 07/19/18 Range/Units 21:00 B-Natriuretic Peptide 36 (0-100) pg/mL CBC 07/19/18 Range/Units 21:00 WBC 5.2 (4.0-11.0) th/mm3 RBC 3.75 L (4.00-5.30) mil/mm3 Hgb 12.0 (11.6-15.3) gm/dL Hct 33.8 L (35.0-46.0) % Plt Count 232 (150-450) th/mm3 Neut # (Auto) 1.6 L (1.8-7.7) th/mm3 Lymph # (Auto) 2.9 (1.0-4.8) th/mm3 [place] # (Auto) 0.4 (0.0-0.9) th/mm3 Eos # (Auto) 0.2 (0.0-0.4) th/mm3 Baso # (Auto) 0.1 (0.0-0.2) th/mm3 Comprehensive Metabolic Panel 07/19/18 Range/Units 21:00 Sodium 142 (136-145) meq/L Potassium 3.5 (3.5-5.1) meq/L Chloride 109 H (98-107) meq/L Carbon Dioxide 26.5 (21.0-32.0) meq/L BUN 11 (7-18) mg/dL Creatinine 1.18 H (0.50-1.00) mg/dL Calcium 9.4 (8.5-10.1) mg/dL AST 17 (15-37) U/L ALT 18 (10-53) U/L Alkaline Phosphatase 72 (45-117) U/L Total Protein 7.5 (6.4-8.2) g/dL Albumin 3.8 (3.4-5.0) g/dL Intake and Output 07/19/18 07/20/18 07/20/18 22:59 06:59 14:59 Intake Total 500 / 500 Balance 500 / 500 Intake: IV 500 / 500 NS Inj 500 ML @ Wide Open IV. 500 / 500 SIG [facility] Rx#:[id number] Other: # Voids 2 Weight 55.338 kg 55.338 kg Weight On Admission 55.338 kg - Imaging and Cardiology Imaging: Impressions Chest X-Ray 07/19/18 21:03 CONCLUSION: No acute cardiopulmonary process. Head CT 07/19/18 21:35 CONCLUSION: 1. No acute abnormality seen. 2. Low density in the posterior parietal periventricular white matter likely related to small vessel ischemic change. . Assessment and Plan - Plan The patient's neurologic studies were personally reviewed with the radiologist and seem to show some progression and atrophy and ischemic changes but with a nondiagnostic conclusion. After some extensive discussion it was felt that this lady needs to be reevaluated by a neurologist with repeat contrast CT to document if there has been any progression. If so obviously further evaluation as to underlying etiology would be necessary. If not she can probably be discharged outpatient follow-up.
--- NOTE | 2018-07-20 10:32 | P.HPCA ---
History of Present Illness Primary Care Physician: Fortunato Nix Chief Complaint: Weakness, dizziness, and chest pain History of Present Illness: This is a 62-year-old female that presents to ED with history of hypertension, hyperlipidemia, vertigo, and prior neurologic workups and prior cardiology workups with complaint of primarily dizziness, and also chest pain. States she woke up yesterday and was very dizzy. She describes it as the room was spinning. She attempted to stand up, symptoms got worse, her legs get weekly, and it seemed like her right side was weaker than the left. She also had tingling in her right upper and lower extremities. Denies headache at the time. She states that she has medication that she takes for vertigo. She took 1 of the medications. It did seem to help with her vertigo but other symptoms persisted. She also throughout the day had intermittent central chest discomfort that she describes as someone standing on her chest. It would last a few minutes at a time but recurred a few times over the next 3 hours. She recalls being diaphoretic and short of breath. Denied nausea. She follows Dr. Seaman on outpatient basis for cardiology. Upon reviewing records she was admitted last month for neurologic symptoms and chest pain. Has not followed up with neurologist. CT of the coronaries performed September 27, 2018 revealed no significant disease. Also note patient had a heart catheterization 2015 that showed nonobstructive coronaries. There was tortuosity of the LAD. Currently denies chest discomfort. She still feels weak on her right side. She states that up until 2 months ago she was able to do exercise, stretching, and even yoga. Hypertension, hyperlipidemia, vertigo. Denies diabetes and CAD. Lifetime non-smoker. States she does not drink alcohol. Denies illicit drugs. - Diagnosis (1) Weakness (2) Chest pain (3) Hypertension (4) Vertigo (5) HLD (hyperlipidemia) Review of Systems General: Patient denies fevers, chills, and recent travel. HEENT: Patient denies headache, sore throat, difficulty swallowing. Cardiovascular: Has the chest discomfort as mentioned above. Denies sensation of heart beating rapidly or irregularly. No syncope. She was diaphoretic. Respiratory: She was short of breath. Denies inspirational chest discomfort. Denies coughing wheezing or hemoptysis. GI: Patient denies nausea, vomiting, diarrhea, abdominal pain, bloody stools. Musculoskeletal: Patient denies joint pain or edema. Denies calf pain or edema. Neurovascular: Complains of right-sided weakness with numbness and tingling in the right upper and lower extremities. Complains of dizziness. Difficult time ambulating. Denies headache. Endocrine: Denies polyuria and polydipsia. Hematologic: Denies easy bruising. Skin: Denies rash or itching. PMFSH - History History Provided By: Patient - Medical History Medical History: Medical History (Last Reviewed 07/19/18 @ 21:42 by Megan Victoria MD) Carpal tunnel syndrome Chronic back pain H/O: hysterectomy HTN (hypertension) Heart murmur Heart valve problem Hyperlipidemia - Surgical History Surgical History: Surgical History (Last Reviewed 07/19/18 @ 21:42 by Megan Victoria MD) H/O section History of carpal tunnel release Hx of hernia repair - Family History Family History: Family History (Last Reviewed 07/19/18 @ 21:42 by Megan Victoria MD) Other Coronary artery disease - Tobacco History Second Hand Smoke Exposure: No Smoking Status: Never smoker Tobacco Type: Cigarettes - Alcohol History How Often Do You Have a Drink Containing Alcohol: Never - Substance Use History Substance History: No History of Abuse - Travel History History of Recent Travel: No Recent Travel in the [place] Within the Last 8 Weeks: No Recent Travel Out of the Country Within the Last 8 Weeks: No - Immunization History Tetanus Immunization: <5 Years Medications and Allergies Active Medications: Active Medications Amlodipine Besylate (Norvasc) 5 mg PO DAILY [facility] Last Admin: 07/20/18 09:53 Dose: 5 mg Aspirin (Aspirin) 325 mg PO DAILY [facility] Last Admin: 07/20/18 08:15 Dose: 325 mg Aspirin (Ecotrin) 81 mg PO DAILY [facility] Atorvastatin Calcium (Lipitor) 40 mg PO HS [facility] Sodium Chloride (Ns Inj) 500 mls @ 0 mls/hr IV.SIG BOLUS [facility] Last Infusion: 07/19/18 22:54 Dose: Infused Miscellaneous (Pill Splitter) 1 each OTHER DAILY [facility] Nitroglycerin (Nitrostat Sl) 0.4 mg SL Q5M PRN PRN Reason: CHEST PAIN Pantoprazole Sodium (Protonix) 40 mg PO DAILY [facility] Last Admin: 07/20/18 09:53 Dose: 40 mg Sertraline HCl (Zoloft) 25 mg PO DAILY [facility] Last Admin: 07/20/18 09:52 Dose: 25 mg Sodium Chloride (Ns Flush) 2 ml IV.FLUSH BID [facility] Last Admin: 07/20/18 08:16 Dose: 2 ml Sodium Chloride (Ns Flush) 2 ml IV.FLUSH PRN PRN PRN Reason: FLUSH AFTER USING IV ACCESS Tramadol HCl (Ultram) 50 mg PO Q8HR PRN PRN Reason: Back Pain Last Admin: 07/20/18 09:53 Dose: 50 mg Allergies Allergy/AdvReac Type Severity Reaction Status Date / Time naproxen AdvReac Severe NAUSEA Verified 06/26/18 18:15 Home Medications Medication Instructions Recorded Confirmed Type amlodipine 5 mg PO DAILY 05/23/18 07/19/18 History sertraline 25 mg PO DAILY 05/23/18 07/19/18 History tramadol 50 mg PO Q8HR PRN 05/23/18 07/19/18 History Exam Vital signs: Vital Signs 07/19/18 16:59 07/19/18 21:45 07/19/18 21:53 Temperature 98.8 F Pulse Rate 55 L 51 L Respiratory Rate 14 16 8 L Blood Pressure 108/53 L 149/86 H Pulse Oximetry 100 98 07/19/18 23:30 07/20/18 00:00 07/20/18 02:04 Temperature Pulse Rate 43 L 50 L 46 L Respiratory Rate 16 16 18 Blood Pressure 150/74 H 127/72 127/65 Pulse Oximetry 100 97 96 07/20/18 04:00 07/20/18 08:00 Temperature 97.7 F 98.2 F Pulse Rate 51 L 47 L Respiratory Rate 14 16 Blood Pressure 132/75 143/70 H Pulse Oximetry 97 100 Intake & Output 07/19/18 07/20/18 07/20/18 18:59 06:59 18:59 Intake Total 500 / 500 Balance 500 / 500 Weight 55.338 kg 55.338 kg Intake: IV 500 / 500 NS Inj 500 ML @ Wide Open IV. 500 / 500 SIG BOLUS [facility] Rx#:[id number] Other: # Voids 2 Weight On Admission 55.338 kg Narrative: GENERAL: This is a well-nourished, well-developed patient, in no apparent distress. Patient speaks in clear complete sentences. Patient is pleasant. HEENT: Head is atraumatic and normocephalic. Neck is supple without lymphadenopathy and trachea is midline. No JVD or carotid bruits. CARDIOVASCULAR: Regular rate and rhythm without murmurs, gallops, or rubs. RESPIRATORY: Clear to auscultation. Breath sounds equal bilaterally. No wheezes , rales, or rhonchi. Chest wall is nontender. No use of accessory muscles. GASTROINTESTINAL: Abdomen is nontender, nondistended. Abdomen soft. No obvious pulsatile mass or bruit. No CVA tenderness. Strong femoral pulses bilaterally. Normal bowel sounds in all quadrants. MUSCULOSKELETAL: Patient is moving upper and lower extremities freely. No calf tenderness or edema, no Homans sign. Strong pulses in upper and lower extremities. NEUROLOGICAL: Patient is alert and oriented. Speech is clear. There is somewhat of a decrease in strength in right versus left. Right upper and lower extremities are about a 4 out of 5 and left upper and lower extremities are about a 4.5 out of 5. When checking for accommodation and convergence, there was lateral deviation of the left eye. SKIN: No rash and turgor is normal. Results 07/19/18 21:00 07/19/18 21:00 Cardiac Enzymes 07/19/18 07/19/18 07/19/18 Range/Units 21:00 21:00 21:00 AST 17 (15-37) U/L CK-MB (CK-2) Less than 1.0 (0.5-3.6) ng/mL Troponin I Less than 0.02 L (0.02-0.05) ng/mL B-Natriuretic Peptide 36 (0-100) pg/mL 07/20/18 07/20/18 Range/Units 01:30 05:01 AST (15-37) U/L CK-MB (CK-2) (0.5-3.6) ng/mL Troponin I 0.03 0.02 (0.02-0.05) ng/mL B-Natriuretic Peptide (0-100) pg/mL Coagulation 07/19/18 Range/Units 21:00 B-Natriuretic Peptide 36 (0-100) pg/mL CBC 07/19/18 Range/Units 21:00 WBC 5.2 (4.0-11.0) th/mm3 RBC 3.75 L (4.00-5.30) mil/mm3 Hgb 12.0 (11.6-15.3) gm/dL Hct 33.8 L (35.0-46.0) % Plt Count 232 (150-450) th/mm3 Neut # (Auto) 1.6 L (1.8-7.7) th/mm3 Lymph # (Auto) 2.9 (1.0-4.8) th/mm3 [place] # (Auto) 0.4 (0.0-0.9) th/mm3 Eos # (Auto) 0.2 (0.0-0.4) th/mm3 Baso # (Auto) 0.1 (0.0-0.2) th/mm3 Comprehensive Metabolic Panel 07/19/18 Range/Units 21:00 Sodium 142 (136-145) meq/L Potassium 3.5 (3.5-5.1) meq/L Chloride 109 H (98-107) meq/L Carbon Dioxide 26.5 (21.0-32.0) meq/L BUN 11 (7-18) mg/dL Creatinine 1.18 H (0.50-1.00) mg/dL Calcium 9.4 (8.5-10.1) mg/dL AST 17 (15-37) U/L ALT 18 (10-53) U/L Alkaline Phosphatase 72 (45-117) U/L Total Protein 7.5 (6.4-8.2) g/dL Albumin 3.8 (3.4-5.0) g/dL Intake and Output 07/19/18 07/20/18 07/20/18 22:59 06:59 14:59 Intake Total 500 / 500 Balance 500 / 500 Intake: IV 500 / 500 NS Inj 500 ML @ Wide Open IV. 500 / 500 SIG [facility] Rx#:[id number] Other: # Voids 2 Weight 55.338 kg 55.338 kg Weight On Admission 55.338 kg - Imaging and Cardiology Imaging: Impressions Chest X-Ray 07/19/18 21:03 CONCLUSION: No acute cardiopulmonary process. Head CT 07/19/18 21:35 CONCLUSION: 1. No acute abnormality seen. 2. Low density in the posterior parietal periventricular white matter likely related to small vessel ischemic change. . EKG interpretations - EKG EKG shows: bradycardia (EKGs are sinus bradycardia without significant ST segment depressions or elevations.) Caprini VTE Risk Assessment Caprini VTE Risk Assessment: Moderate/High Risk (score >= 2) Caprini Risk Assessment Model: Point Value = 1 Point Value = 2 Point Value = 3 Point Value = 5 Age 41-60 Minor surgery BMI > 25 kg/m2 Swollen legs Varicose veins or History of unexplained or recurrent spontaneous Oral contraceptives or hormone replacement Sepsis (< 1 month) Serious lung disease, including pneumonia (< 1 month) Abnormal pulmonary function Acute myocardial infarction Congestive heart failure (< 1 month) History of inflammatory bowel disease Medical patient at bed rest Age 61-74 Arthroscopic surgery Major open surgery (> 45 min) Laparoscopic surgery (> 45 min) Malignancy Confined to bed (> 72 hours) Immobilizing plaster cast Central venous access Age >= 75 History of VTE Family history of VTE Factor V Leiden Prothrombin [id number] Lupus anticoagulant Anticardiolipin antibodies Elevated serum homocysteine Heparin-induced thrombocytopenia Other congenital or acquired thrombophilia Stroke (< 1 month) Elective arthroplasty Hip, pelvis, or leg fracture Acute spinal cord injury (< 1 month) Prophylaxis Regimen: Total Risk Factor Score Risk Level Prophylaxis Regimen 0-1 Low Early ambulation 2 Moderate Order ONE of the following: *Sequential Compression Device (SCD) *Heparin 5000 units SQ BID 3-4 Higher Order ONE of the following medications: *Heparin 5000 units SQ TID *Enoxaparin/Lovenox 40 mg SQ daily (WT < 150 kg, CrCl > 30 mL/min) *Enoxaparin/Lovenox 30 mg SQ daily (WT < 150 kg, CrCl > 10-29 mL/min) *Enoxaparin/Lovenox 30 mg SQ BID (WT < 150 kg, CrCl > 30 mL/min) AND/OR *Sequential Compression Device (SCD) 5 or more Highest Order ONE of the following medications: *Heparin 5000 units SQ TID (Preferred with Epidurals) *Enoxaparin/Lovenox 40 mg SQ daily (WT < 150 kg, CrCl > 30 mL/min) *Enoxaparin/Lovenox 30 mg SQ daily (WT < 150 kg, CrCl > 10-29 mL/min) *Enoxaparin/Lovenox 30 mg SQ BID (WT < 150 kg, CrCl > 30 mL/min) AND *Sequential Compression Device (SCD) Assessment and Plan - Assessment (1) Weakness Code(s): R53.1 - Weakness Status: Acute (2) Chest pain Code(s): R07.9 - Chest pain, unspecified Status: Acute (3) Hypertension Code(s): I10 - Essential (primary) hypertension Status: Acute (4) Vertigo Code(s): R42 - Dizziness and giddiness Status: Acute (5) HLD (hyperlipidemia) Code(s): E78.5 - Hyperlipidemia, unspecified Status: Acute - Plan The patient's neurologic studies were personally reviewed with the radiologist and seem to show some progression and atrophy and ischemic changes but with a nondiagnostic conclusion. After some extensive discussion it was felt that this lady needs to be reevaluated by a neurologist with repeat contrast MRI to document if there has been any progression. If so obviously further evaluation as to underlying etiology would be necessary. If not she can probably be discharged outpatient follow-up. Patient had CTA of the coronaries that revealed nonobstructive disease. No further cardiac evaluation at this time. But she could certainly follow up with her biomedical service engineer on outpatient basis. [facility] and he has graciously agreed to set this patient. H&P: Quality - VTE Deep Vein Thrombosis/Pulmonary Embolism Present on Admission: No
--- NOTE | 2018-07-20 11:05 | ECG ---
Date Performed: 07/20/2018 Time Performed: 05:05:08 PTAGE: 62 years EKG: ELECTRONIC ATRIAL PACEMAKER NONSPECIFIC T-WAVE ABNORMALITY ABNORMAL RHYTHM ECG Extensive ar tifact precludes accurate evaluation repeat tracing recommended PREVIOUS TRACING : 07/20/2018 01.29 DOCTOR: Cyril Rico Interpretating Date/Time 07/20/2018 11:04:27
--- NOTE | 2018-07-20 11:05 | ECG ---
Date Performed: 07/20/2018 Time Performed: 01:29:47 PTAGE: 62 years EKG: SINUS BRADYCARDIA BORDERLINE ECG No significant change PREVIOUS TRACING : 07/19/2018 17.17 DOCTOR: Cyril Rico Interpretating Date/Time 07/20/2018 11:04:40
--- NOTE | 2018-07-20 11:07 | ECG ---
Date Performed: 07/19/2018 Time Performed: 17:17:11 PTAGE: 62 years EKG: SINUS BRADYCARDIA BORDERLINE ECG INTERPRETATION BASED ON A DEFAULT AGE OF 40 YEARS No signi ficant change PREVIOUS TRACING : 06/27/2018 10.48 DOCTOR: Cyril Rico Interpretating Date/Time 07/20/2018 11:06:19
--- NOTE | 2018-07-20 11:35 | P.PNIM ---
Subjective Interval history: f/u; vertigo in no acute distress. says that she's still feeling dizzy. however her dizziness and chest pain is better than yesterday. has some numbness over the right lower extremity. Physical Exam Vital signs: Vital Signs 07/19/18 16:59 07/19/18 21:45 07/19/18 21:53 Temperature 98.8 F Pulse Rate 55 L 51 L Respiratory Rate 14 16 8 L Blood Pressure 108/53 L 149/86 H Pulse Oximetry 100 98 07/19/18 23:30 07/20/18 00:00 07/20/18 02:04 Temperature Pulse Rate 43 L 50 L 46 L Respiratory Rate 16 16 18 Blood Pressure 150/74 H 127/72 127/65 Pulse Oximetry 100 97 96 07/20/18 04:00 07/20/18 08:00 Temperature 97.7 F 98.2 F Pulse Rate 51 L 47 L Respiratory Rate 14 16 Blood Pressure 132/75 143/70 H Pulse Oximetry 97 100 Intake & Output 07/19/18 07/20/18 07/20/18 18:59 06:59 18:59 Intake Total 500 / 500 Balance 500 / 500 Weight 55.338 kg 55.338 kg Intake: IV 500 / 500 NS Inj 500 ML @ Wide Open IV. 500 / 500 SIG BOLUS SUZAN Rx#:[id number] Other: # Voids 2 Weight On Admission 55.338 kg - Constitutional no acute distress - Routine Respiratory Exam Present: CTA bilaterally - Routine Cardiovascular Exam Present: RRR - Routine Abdominal Exam Present: soft - Routine Extremities Exam Comments: no pedal edema. - Routine Neurological Exam Present: alert, oriented X3 Results - Labs CBC & Chem 7: 07/19/18 21:00 07/19/18 21:00 Laboratory Results - last 24 hr 07/19/18 07/19/18 07/19/18 21:00 21:00 21:00 WBC 5.2 RBC 3.75 L Hgb 12.0 Hct 33.8 L MCV 90.3 MCH 32.1 MCHC 35.5 RDW 14.8 Plt Count 232 MPV 9.1 Neut % (Auto) 31.3 Lymph % (Auto) 55.4 H [place] % (Auto) 8.4 H Eos % (Auto) 3.8 Baso % (Auto) 1.1 Neut # (Auto) 1.6 L Lymph # (Auto) 2.9 [place] # (Auto) 0.4 Eos # (Auto) 0.2 Baso # (Auto) 0.1 WBC Differential . Differential Comment Auto diff final Sodium 142 Potassium 3.5 Chloride 109 H Carbon Dioxide 26.5 Anion Gap 7 BUN 11 Creatinine 1.18 H Estimated GFR 56 L Random Glucose 83 Calcium 9.4 Magnesium Total Bilirubin 0.3 AST 17 ALT 18 Alkaline Phosphatase 72 Total Creatine Kinase CK-MB (CK-2) Troponin I Less than 0.02 L B-Natriuretic Peptide 36 Total Protein 7.5 Albumin 3.8 Lipase TSH 07/19/18 07/19/18 07/19/18 21:00 21:00 21:00 WBC RBC Hgb Hct MCV MCH MCHC RDW Plt Count MPV Neut % (Auto) Lymph % (Auto) [place] % (Auto) Eos % (Auto) Baso % (Auto) Neut # (Auto) Lymph # (Auto) [place] # (Auto) Eos # (Auto) Baso # (Auto) WBC Differential Differential Comment Sodium Potassium Chloride Carbon Dioxide Anion Gap BUN Creatinine Estimated GFR Random Glucose Calcium Magnesium 2.1 Total Bilirubin AST ALT Alkaline Phosphatase Total Creatine Kinase 130 CK-MB (CK-2) Less than 1.0 Troponin I B-Natriuretic Peptide Total Protein Albumin Lipase 145 TSH 1.950 07/20/18 07/20/18 01:30 05:01 WBC RBC Hgb Hct MCV MCH MCHC RDW Plt Count MPV Neut % (Auto) Lymph % (Auto) [place] % (Auto) Eos % (Auto) Baso % (Auto) Neut # (Auto) Lymph # (Auto) [place] # (Auto) Eos # (Auto) Baso # (Auto) WBC Differential Differential Comment Sodium Potassium Chloride Carbon Dioxide Anion Gap BUN Creatinine Estimated GFR Random Glucose Calcium Magnesium Total Bilirubin AST ALT Alkaline Phosphatase Total Creatine Kinase 127 103 CK-MB (CK-2) Troponin I 0.03 0.02 B-Natriuretic Peptide Total Protein Albumin Lipase TSH - Imaging Impressions Chest X-Ray 07/19/18 21:03 CONCLUSION: No acute cardiopulmonary process. Head CT 07/19/18 21:35 CONCLUSION: 1. No acute abnormality seen. 2. Low density in the posterior parietal periventricular white matter likely related to small vessel ischemic change. . Assessment and Plan - Plan A/P - vertigo Meclizine as needed- neurology consulted- will consult PT. of note had a recent neurological w/u. -chest pain serial troponin negative- had a recent coronary CT with negative significant CAD- f/u with her museum librarian as outpatient. -hypertension; resumed home meds. Discharge Planning: pending neurological w/u.
--- NOTE | 2018-07-20 11:54 | P.CONNEU ---
History of Present Illness Service: Neurology Consult date: 07/20/18 Reason for Consult: Dizziness, weakness Primary Care Provider: Fortunato Nix Chief Complaint: Weakness, dizziness, and chest pain History of Present Illness: 62 y/o female who woke up this morning with complaints of dizziness, room spinning. She also noted weakness. She denies further episodes of dizziness since admission. She has hx of vertigo and takes medication at home that helps. She thinks she may have had history of TIA, but no hx of stroke. She has hx of HTN, hyperlipidemia and preDM. She takes ASA 81mg at home, but has not been taking her medication daily. She notes she has been forgetting her pills. She was seen in June and had unremarkable MRI, MRA, and CUS. LDL was elevated. MRI cspine showed mild canal stenosis. She states she feels weak overall. No change in speech or vision. No change in walking. In the ER she also had complained of chest pain and is being worked up by cardiology. Review of Systems All other systems reviewed negative except as stated in HPI PMFSH - History History Provided By: Patient - Medical History Medical History: Medical History (Last Reviewed 07/19/18 @ 21:42 by Megan Victoria MD) Carpal tunnel syndrome Chronic back pain H/O: hysterectomy HTN (hypertension) Heart murmur Heart valve problem Hyperlipidemia - Surgical History Surgical History: Surgical History (Last Reviewed 07/19/18 @ 21:42 by Megan Victoria MD) H/O section History of carpal tunnel release Hx of hernia repair - Family History Family History: Family History (Last Reviewed 07/19/18 @ 21:42 by Megan Victoria MD) Other Coronary artery disease - Tobacco History Second Hand Smoke Exposure: No Smoking Status: Never smoker Tobacco Type: Cigarettes - Alcohol History How Often Do You Have a Drink Containing Alcohol: Never - Substance Use History Substance History: No History of Abuse - Travel History History of Recent Travel: No Recent Travel in the [place] Within the Last 8 Weeks: No Recent Travel Out of the Country Within the Last 8 Weeks: No - Immunization History Tetanus Immunization: <5 Years Medications and Allergies Allergies Allergy/AdvReac Type Severity Reaction Status Date / Time naproxen AdvReac Severe NAUSEA Verified 06/26/18 18:15 Home Medications Medication Instructions Recorded Confirmed Type amlodipine 5 mg PO DAILY 05/23/18 07/19/18 History sertraline 25 mg PO DAILY 05/23/18 07/19/18 History tramadol 50 mg PO Q8HR PRN 05/23/18 07/19/18 History Active Medications: Active Medications Amlodipine Besylate (Norvasc) 5 mg PO DAILY [facility] Last Admin: 07/20/18 09:53 Dose: 5 mg Aspirin (Aspirin) 325 mg PO DAILY [facility] Last Admin: 07/20/18 08:15 Dose: 325 mg Atorvastatin Calcium (Lipitor) 40 mg PO HS [facility] Sodium Chloride (Ns Inj) 500 mls @ 0 mls/hr IV.SIG BOLUS [facility] Last Infusion: 07/19/18 22:54 Dose: Infused Meclizine HCl (Antivert) 25 mg PO Q8H PRN PRN Reason: vertigo Miscellaneous (Pill Splitter) 1 each OTHER DAILY [facility] Last Admin: 07/20/18 10:43 Dose: Not Given Nitroglycerin (Nitrostat Sl) 0.4 mg SL Q5M PRN PRN Reason: CHEST PAIN Pantoprazole Sodium (Protonix) 40 mg PO DAILY [facility] Last Admin: 07/20/18 09:53 Dose: 40 mg Sertraline HCl (Zoloft) 25 mg PO DAILY [facility] Last Admin: 07/20/18 09:52 Dose: 25 mg Sodium Chloride (Ns Flush) 2 ml IV.FLUSH BID [facility] Last Admin: 07/20/18 08:16 Dose: 2 ml Sodium Chloride (Ns Flush) 2 ml IV.FLUSH PRN PRN PRN Reason: FLUSH AFTER USING IV ACCESS Tramadol HCl (Ultram) 50 mg PO Q8HR PRN PRN Reason: Back Pain Last Admin: 07/20/18 09:53 Dose: 50 mg Exam Vital signs: Vital Signs 07/19/18 16:59 07/19/18 21:45 07/19/18 21:53 Temperature 98.8 F Pulse Rate 55 L 51 L Respiratory Rate 14 16 8 L Blood Pressure 108/53 L 149/86 H Pulse Oximetry 100 98 07/19/18 23:30 07/20/18 00:00 07/20/18 02:04 Temperature Pulse Rate 43 L 50 L 46 L Respiratory Rate 16 16 18 Blood Pressure 150/74 H 127/72 127/65 Pulse Oximetry 100 97 96 07/20/18 04:00 07/20/18 08:00 Temperature 97.7 F 98.2 F Pulse Rate 51 L 47 L Respiratory Rate 14 16 Blood Pressure 132/75 143/70 H Pulse Oximetry 97 100 Intake & Output 07/19/18 07/20/18 07/20/18 18:59 06:59 18:59 Intake Total 500 / 500 Balance 500 / 500 Weight 55.338 kg 55.338 kg Intake: IV 500 / 500 NS Inj 500 ML @ Wide Open IV. 500 / 500 SIG BOLUS SUZAN Rx#:[id number] Other: # Voids 2 Weight On Admission 55.338 kg - Routine Neurological Exam alert and orient x 3 CN II-XII mild left facial droop, EOMi, no nystagmus, VFF motor: mild generalized weakness on the left >right, moving extremities against gravity. No drift, no spasticity reflexes: 2+ francisco, 1+ ankles toes: equiv cerebellar: intact no tremor coordination intact gait withheld speech: soft, no dysarthria or aphasia noted Results - Labs CBC & Chem 7: 07/19/18 21:00 07/19/18 21:00 Labs: Laboratory Results - last 24 hr 07/19/18 07/19/18 07/19/18 21:00 21:00 21:00 WBC 5.2 RBC 3.75 L Hgb 12.0 Hct 33.8 L MCV 90.3 MCH 32.1 MCHC 35.5 RDW 14.8 Plt Count 232 MPV 9.1 Neut % (Auto) 31.3 Lymph % (Auto) 55.4 H [place] % (Auto) 8.4 H Eos % (Auto) 3.8 Baso % (Auto) 1.1 Neut # (Auto) 1.6 L Lymph # (Auto) 2.9 [place] # (Auto) 0.4 Eos # (Auto) 0.2 Baso # (Auto) 0.1 WBC Differential . Differential Comment Auto diff final Sodium 142 Potassium 3.5 Chloride 109 H Carbon Dioxide 26.5 Anion Gap 7 BUN 11 Creatinine 1.18 H Estimated GFR 56 L Random Glucose 83 Calcium 9.4 Magnesium Total Bilirubin 0.3 AST 17 ALT 18 Alkaline Phosphatase 72 Total Creatine Kinase CK-MB (CK-2) Troponin I Less than 0.02 L B-Natriuretic Peptide 36 Total Protein 7.5 Albumin 3.8 Lipase TSH 1007/19/18 07/19/18 21:00 21:00 21:00 WBC RBC Hgb Hct MCV MCH MCHC RDW Plt Count MPV Neut % (Auto) Lymph % (Auto) [place] % (Auto) Eos % (Auto) Baso % (Auto) Neut # (Auto) Lymph # (Auto) [place] # (Auto) Eos # (Auto) Baso # (Auto) WBC Differential Differential Comment Sodium Potassium Chloride Carbon Dioxide Anion Gap BUN Creatinine Estimated GFR Random Glucose Calcium Magnesium 2.1 Total Bilirubin AST ALT Alkaline Phosphatase Total Creatine Kinase 130 CK-MB (CK-2) Less than 1.0 Troponin I B-Natriuretic Peptide Total Protein Albumin Lipase 145 TSH 1.950 07/20/18 07/20/18 01:30 05:01 WBC RBC Hgb Hct MCV MCH MCHC RDW Plt Count MPV Neut % (Auto) Lymph % (Auto) [place] % (Auto) Eos % (Auto) Baso % (Auto) Neut # (Auto) Lymph # (Auto) [place] # (Auto) Eos # (Auto) Baso # (Auto) WBC Differential Differential Comment Sodium Potassium Chloride Carbon Dioxide Anion Gap BUN Creatinine Estimated GFR Random Glucose Calcium Magnesium Total Bilirubin AST ALT Alkaline Phosphatase Total Creatine Kinase 127 103 CK-MB (CK-2) Troponin I 0.03 0.02 B-Natriuretic Peptide Total Protein Albumin Lipase TSH - Imaging Impressions Chest X-Ray 07/19/18 21:03 CONCLUSION: No acute cardiopulmonary process. Head CT 07/19/18 21:35 CONCLUSION: 1. No acute abnormality seen. 2. Low density in the posterior parietal periventricular white matter likely related to small vessel ischemic change. . Review/Management - Diagnosis (1) Dizziness Code(s): R42 - Dizziness and giddiness Status: Acute Current Visit: Yes (2) Weakness Code(s): R53.1 - Weakness Status: Acute Current Visit: Yes - Review/Management Plan: Hx of Vertigo, possible TIA has mild generalized weakness L>R will repeat MRI brain due to changes seen on CT brain MRA and CUS in Jun 2018 were unremarkable, depending on MRI brain may need to repeat MRA COW elevated Cr, so no CTA goal LDL <70, she is on a statin continue cardiac work up ASA has already been increased to 325mg, discussed importance of medication compliance B12 was low in the past, will recheck B vitamins as these can contribute to problems with memory Addendum note pt seen and d/w with PA we will check an MRI brain if abnl then mra cow will be done'continue 325mg asa po qd. pt-ot eval scds sq heparin b1,b6,b12 level.
[2018-07-20 13:31] LABS: Folate 18.6 ng/mL (3.1-17.5)
[2018-07-20] MEDS ORDERED: Gadobutrol PF 2 MMOL/2 ML Vial (for RAD) IV.SIG ONE (14:30)
--- NOTE | 2018-07-20 14:40 | MR ---
EXAM DATE: 07/20/2018 1:33 PM EDT AGE/SEX: 62 years / Female INDICATIONS: Unsteady gait. CLINICAL DATA: This is the patient's initial encounter. Patient reports that signs and symptoms have been present for 1 day and indicates a pain score of 5/10. MEDICAL/SURGICAL HISTORY: Hypertension. Hypercholesterolemia. Hysterectomy. section. Breast tumor removed, Wrist sx, Hernia sx. COMPARISON: No prior exams available for comparison. TECHNIQUE: Multiplanar, multisequence examination of the brain was performed without and with 5 ml Ga davist (gadobutrol) contrast as a single exam dose. FINDINGS: MRI of the brain is performed in sagittal, axial and coronal planes. The craniocervical junction and midline structures are unremarkable. Diffusion weighted images demonstrate no abnormality. No acute c ortical infarction, acute hemorrhage, mass effect or midline shift is seen.Following the administrati on of contrast no abnormal enhancement is identified. There is periventricular hyperintensity on the T2 weighted images consistent with small vessel vascular disease slightly more than expected in a pat ient of this age. There is more confluent white matter abnormality adjacent to the atria lateral vent ricles but no restricted diffusion is identified. There has been no significant change when compared to the prior exam. Posterior fossa structures are unremarkable. CONCLUSION: No evidence of acute intracranial pathology. Chronic ischemic changes as above. Electronically signed by: Refugio Terrell MD 07/20/2018 2:39 PM EDT
[2018-07-21] MEDS: Sertraline 50 MG Tablet PO SCH (10:00)
[2018-07-21] MEDS: Pantoprazole Sodium 20 MG DR Tablet PO SCH (10:01)
[2018-07-21] MEDS: Aspirin 325 MG Tablet PO SCH (10:01)
[2018-07-21] MEDS: amLODIPine 5 MG Tablet PO SCH (10:01)
--- NOTE | 2018-07-21 10:05 | P.PNIM ---
Subjective Interval history: f/u; vertigo in no acute distress. says that she's still felling dizzy. but she says that she had a better night - last night. d/w the RN. Physical Exam Vital signs: Vital Signs 07/20/18 12:00 07/20/18 15:49 07/20/18 20:00 Temperature 98.2 F 98.4 F 97.9 F Pulse Rate 52 L 53 L 51 L Respiratory Rate 16 16 17 Blood Pressure 137/63 134/82 96/51 L Pulse Oximetry 96 97 99 07/21/18 00:00 07/21/18 04:00 07/21/18 07:24 Temperature 99.1 F 98.2 F Pulse Rate 52 L 51 L Respiratory Rate 17 17 Blood Pressure 90/55 L 90/48 L Pulse Oximetry 97 95 96 07/21/18 07:51 07/21/18 08:00 Temperature 98.5 F Pulse Rate 60 53 L Respiratory Rate 18 Blood Pressure 118/62 Pulse Oximetry 98 96 Intake & Output 07/20/18 07/21/18 07/21/18 18:59 06:59 18:59 Intake Total 240 / 240 Balance 240 / 240 Intake: Oral 240 / 240 Other: # Voids 1 2 Date of Last Bowel Movement 07/18/18 - Constitutional no acute distress - Routine Respiratory Exam Present: CTA bilaterally - Routine Cardiovascular Exam Present: RRR - Routine Abdominal Exam Present: soft - Routine Extremities Exam Comments: no pedal edema. - Routine Neurological Exam Present: alert, oriented X3 Results - Labs CBC & Chem 7: 07/19/18 21:00 07/19/18 21:00 Laboratory Results - last 24 hr 07/20/18 12:18 Vitamin B12 239 Folate 18.6 H - Imaging Impressions Head MRI 07/20/18 00:00 CONCLUSION: No evidence of acute intracranial pathology. Chronic ischemic changes as above. Assessment and Plan - Plan A/P - vertigo MRI brain with no acute abnormality- neurology consult appreciated. Meclizine as needed- will check orthostatic BP continue PT. -chest pain serial troponin negative- had a recent coronary CT with negative significant CAD-was evaluated by cardiology and recommended no further w/u at this time with outpatient follow-up. -hypertension; now with BP on low side-hold Amlodipine today.check for orthostatic BP as noted above. Discharge Planning: dc home within the next 24 hrs if clinically better and ok with PT.
[2018-07-22] MEDS: Aspirin 325 MG Tablet PO SCH (08:47)
[2018-07-22] MEDS: Pantoprazole Sodium 20 MG DR Tablet PO SCH (08:48)
[2018-07-22] MEDS: Sertraline 50 MG Tablet PO SCH (08:48)
--- NOTE | 2018-07-22 09:38 | P.DS ---
Date of admission: 07/20/18 01:07 Primary care physician: Fortunato Nix Attending physician on discharge: Ashlee Wood Anticipated date of discharge: 07/22/18 Brief History from admission: This is a 62-year-old female that presents to ED with history of hypertension, hyperlipidemia, vertigo, and prior neurologic workups and prior cardiology workups with complaint of primarily dizziness, and also chest pain. States she woke up yesterday and was very dizzy. She describes it as the room was spinning. She attempted to stand up, symptoms got worse, her legs get weekly, and it seemed like her right side was weaker than the left. She also had tingling in her right upper and lower extremities. Denies headache at the time. She states that she has medication that she takes for vertigo. She took 1 of the medications. It did seem to help with her vertigo but other symptoms persisted. She also throughout the day had intermittent central chest discomfort that she describes as someone standing on her chest. It would last a few minutes at a time but recurred a few times over the next 3 hours. She recalls being diaphoretic and short of breath. Denied nausea. She follows Dr. Seaman on outpatient basis for cardiology. Upon reviewing records she was admitted last month for neurologic symptoms and chest pain. Has not followed up with neurologist. CT of the coronaries performed September 27, 2018 revealed no significant disease. Also note patient had a heart catheterization 2015 that showed nonobstructive coronaries. There was tortuosity of the LAD. Currently denies chest discomfort. She still feels weak on her right side. She states that up until 2 months ago she was able to do exercise, stretching, and even yoga. Hypertension, hyperlipidemia, vertigo. Denies diabetes and CAD. Lifetime non-smoker. States she does not drink alcohol. Denies illicit drugs. Patient update on day of discharge: Pt reports chest pain is occasionally there but has improved. She is anxious because she states it feels like an elephant is sitting on her chest and it goes into her neck. She also complains of some reflux symptoms after she eats. I discussed with her that cardiology did not feel that her chest pain was cardiac in etiology given negative catheterization in 2016 and a normal CTA of the coronaries in 2018. She reports her dizziness is improving with the meclizine. Has been hospitalized for vertigo in the past, has never done vestibular rehab. She states she feels just about back to her baseline. Complains of right leg pain and weakness. States she follows with PCP, Dr. Nix. DS: Diagnosis - Discharge Diagnosis (1) Vertigo Status: Acute DS: Medications - Discharge Medications Prescriptions: aspirin 325 mg PO DAILY #30 tab DS: Summary Hospital Course: 62 year old AA female with history of HTN, HLD, vertigo, and possible history of TIA admitted on 07/20 for evaluation of chest pain and dizziness. Initially admitted to cardiology who felt that her chest pain was not cardiac in nature and she needed neurologic workup. Neurology was consulted who performed an MRI that was negative for any acute intracranial abnormalities but did show some chronic ischemic changes. They felt her symptoms were possibly vertigo versus TIA. Her aspirin was increased and her statin was continued. PT was consulted who recommended PT with home health. Her amlodipine was held secondary to low blood pressures. She was discharged in stable condition with home health care and PT on 07/22. - Time Spent with Patient Total time spent providing and/or coordinating discharge services: Greater than 30 minutes - Quality: VTE Deep Vein Thrombosis/Pulmonary Embolism Present on Admission: No Exam Vital signs: Vital Signs 07/21/18 12:09 07/21/18 15:48 07/21/18 18:34 Temperature 98.2 F 98.5 F Pulse Rate 65 65 Respiratory Rate 20 18 17 Blood Pressure 95/57 L 91/53 L Pulse Oximetry 98 97 07/21/18 19:53 07/21/18 19:57 07/22/18 00:00 Temperature 99.1 F 98.9 F Pulse Rate 58 L 54 L Respiratory Rate 18 16 Blood Pressure 96/55 L 92/52 L Pulse Oximetry 99 93 L 97 07/22/18 03:50 07/22/18 07:50 Temperature 98.7 F 99.1 F Pulse Rate 59 L 58 L Respiratory Rate 16 16 Blood Pressure 108/63 104/57 L Pulse Oximetry 98 98 Intake & Output 07/21/18 07/22/18 07/22/18 18:59 06:59 18:59 Other: Date of Last Bowel Movement 07/18/18 Narrative: GENERAL: WN, WD AA female sitting up in bed eating breakfast in NAD. SKIN: Warm and dry. HEENT: AT/NC. Pupils equal and round. MMM. NECK: Supple no tender LAD or JVD. HEART: Bradycardic with no appreciable murmurs. LUNGS: CTAB without wheezes or crackles. ABDOMEN: +BS, soft, NT, ND. EXTREMITIES: No LE edema. NEURO: Awake and alert. Mild generalized weakness. PSYCH: Flat affect. Results Procedures completed during hospitalization: None Labs on day of discharge: Labs from last 24 hours 07/21/18 13:55 Troponin I 0.03 - Impressions ITS Impressions Chest X-Ray 07/19/18 21:03 CONCLUSION: No acute cardiopulmonary process. Head CT 07/19/18 21:35 CONCLUSION: 1. No acute abnormality seen. 2. Low density in the posterior parietal periventricular white matter likely related to small vessel ischemic change. . Head MRI 07/20/18 00:00 CONCLUSION: No evidence of acute intracranial pathology. Chronic ischemic changes as above. Discharge Plan - Discharge Disposition Patient Disposition: W/Home Health Service - Discharge Condition Condition: Stable - Discharge Order Discharge Orders: Discharge Order (Routine); Ordered 07/22/18 Ordered By: Ashlee Wood - Discharge Details Anticipated Discharge Date: 07/22/18 - Physicians Team Primary Care Provider: Fortunato Nix Attending Provider: Ashlee Wood Other Providers: Freida Loja MD
--- NOTE | 2018-07-22 09:45 | P.DCO ---
- Diagnosis (1) Vertigo Status: Acute (2) Weakness Status: Acute (3) Right leg weakness Status: Acute (4) TIA (transient ischemic attack) Status: Acute - Physical Therapy Order: Evaluate and treat, Improve ambulation, Strength and gait training - Home Health Nursing Order: Nursing assessment with vital signs - Case Management Consult Yes - Certification I have seen patient Eri Ferreira on 07/22/18. My clinical findings support the need for the requested home health care services because: Deconditioned with increased weakness, High risk of falls I certify that my clinical findings support that this patient is homebound because: Unsteady gait/balance
[2018-07-22 10:54] LABS: Calcium 9.6 mg/dL (8.5-10.1); Carbon Dioxide 29.1 meq/L (21.0-32.0)
[2018-07-22 14:14] VITALS: BP 93/63; PULSE 67; RESP 20; TEMP 99.2; O2SAT 97
--- NOTE | 2018-07-22 15:35 | ECG ---
Date Performed: 07/21/2018 Time Performed: 12:37:51 PTAGE: 62 years EKG: Marked baseline artifact makes interpretation very difficult. There appears to be a Sinus r hythm with slight sinus bradycardia. Nonspecific ST change Compared to previous tracing, tracing continues to be technically very poor. Recommend repeat tracing of better quality. ABNORMAL ECG PREVIOUS TRACING : 07/20/2018 05.05 DOCTOR: Ishmael Graves Interpretating Date/Time 07/22/2018 15:34:05
--- NOTE | 2018-07-24 12:17 | P.DCO ---
- Diagnosis (1) Right leg weakness Status: Acute (2) TIA (transient ischemic attack) Status: Acute (3) Vertigo Status: Acute (4) Weakness Status: Acute - Home Health Nursing Order: Medical education, Signs/symptoms of disease process, Nursing assessment with vital signs - Case Management Consult No - Certification I have seen patient Eri Ferreira on 07/24/18. My clinical findings support the need for the requested home health care services because: Limited mobility due to disease progression, High risk of falls I certify that my clinical findings support that this patient is homebound because: Unsteady gait/balance, Unsafe to leave home unassisted
== END 2018-07-22 16:22 | disposition home or self-care (01) ==
LOC: NEPC 16:43 → NEDA 16:43 → NEPFCDU 07-20 01:55
PROVIDERS: ADMIT Family Medicine; ATTEND Family Medicine